=== PATIENT | female | born 1960 | race Caucasian/White ===

== ENCOUNTER 2021-03-10 13:08 | Outpatient (CLI) | payer OTHER, SELFPAY ==
[2021-03-10 13:34] LABS: Hematocrit 36.2 % (35.0-49.0); Mean Corpuscular HGB Conc 33.1 g/dL (32.0-36.0); Mean Corpuscular Hemoglobin 27.3 pg (27.0-31.0); Mean Corpuscular Volume 82.5 fL (78.0-102.0); Mean Platelet Volume 9.6 fl (9.2-11.8); Platelet Count Result 437 K/mm3 (150-420); Red Blood Count 4.39 M/mm3 (4.20-5.40); Red Cell Distribution Width 12.6 % (11.6-14.4); White Blood Count 14.5 K/mm3 (4.8-10.8)
[2021-03-10 13:57] LABS: INR 4.8; Prothrombin Time 47.6 Seconds (9.50-12.10)
[2021-03-10 14:06] LABS: Alanine Aminotransferase 22 U/L (14-59); Albumin Level 4.1 g/dL (3.4-5.0); Alkaline Phosphatase 156 U/L (46-116); Anion Gap 18 mmol/L (8-16); Aspartate Amino Transferase 27 U/L (15-37); Bilirubin,Total 0.4 mg/dL (0.00-1.00); Blood Urea Nitrogen 38 mg/dL (7-18); Calcium 9.9 mg/dL (8.5-10.1); Carbon Dioxide 20 mmol/L (21-32); Chloride 94 mmol/L (98-108); Estimated Glomerular Filt Rate 30; Glucose 373 mg/dL (70-99); Osmolality Calculated 298 mOsm/kg (285-295); Sodium 132 mmol/L (136-145); Total Protein 7.8 g/dL (6.4-8.2)
== END 2021-03-10 13:09 | disposition home or self-care (01) ==
LOC: CHSLAB 13:16
DX: I35.0 Nonrheumatic aortic (valve) stenosis (principal)
CPT/HCPCS: 36415; 80053; 85027; 85610

== ENCOUNTER 2021-04-30 12:11 | Outpatient (CLI) | payer OTHER, SELFPAY ==
[2021-04-30 12:40] LABS: INR 1.8; Prothrombin Time 19.1 Seconds (9.50-12.10)
[2021-04-30 12:43] LABS: Creatinine Urine 33.61 mg/dL (40-278); MALB Creatinine Ratio 38.6 mg/g (0-30); Microalbumin Urine Random < 13.0 mg/L
[2021-04-30 13:26] LABS: Alanine Aminotransferase 42 U/L (14-59); Alkaline Phosphatase 79 U/L (46-116); Anion Gap 11 mmol/L (8-16); Aspartate Amino Transferase 19 U/L (15-37); Bilirubin,Total 0.6 mg/dL (0.00-1.00); Blood Urea Nitrogen 14 mg/dL (7-18); Calcium 9.2 mg/dL (8.5-10.1); Carbon Dioxide 27 mmol/L (21-32); Chloride 103 mmol/L (98-108); Cholesterol 132 mg/dL (0-200); Estimated Glomerular Filt Rate 49; Free T4 Free Thyroxine 1.28 ng/dL (0.76-1.46); Glucose 190 mg/dL (70-99); HDL Direct 38 mg/dL (40-60); LDL Cholesterol Calculated 51 mg/dL (<130); LDL Cholesterol Direct 59 mg/dL (0-130); Osmolality Calculated 297 mOsm/kg (285-295); Potassium 3.9 mmol/L (3.5-5.1); Sodium 141 mmol/L (136-145); Thyroid Stimulating Hormone 1.16 uIU/mL (0.36-3.74); Total Protein 6.6 g/dL (6.4-8.2); Triglycerides 214 mg/dL (0-150)
== END 2021-04-30 12:12 | disposition home or self-care (01) ==
LOC: CHSLAB 12:16
PROVIDERS: Visit Provider Internal Medicine
DX: E11.65 Type 2 diabetes mellitus with hyperglycemia (principal); I35.0 Nonrheumatic aortic (valve) stenosis
CPT/HCPCS: 36415; 80053; 80061; 82043; 83721; 84439; 84443; 85610

== ENCOUNTER 2021-05-29 11:37 | Outpatient (RCR) | payer OTHER, SELFPAY ==
[2021-03-14 15:08] LABS: INR > 8.0; Prothrombin Time > 90.0 Seconds (9.64-11.0)
[2021-03-18 10:47] LABS: INR 2.1; Prothrombin Time 21.5 Seconds (9.50-12.10)
[2021-03-28 12:18] LABS: INR 1.7; Prothrombin Time 17.8 Seconds (9.50-12.10)
[2021-04-02 13:26] LABS: INR 2.3; Prothrombin Time 23.2 Seconds (9.50-12.10)
[2021-04-09 12:34] LABS: INR 2.1; Prothrombin Time 21.9 Seconds (9.50-12.10)
[2021-04-17 13:59] LABS: INR 2.3; Prothrombin Time 23.6 Seconds (9.50-12.10)
[2021-05-29 12:10] LABS: INR 2.2; Prothrombin Time 22.7 Seconds (9.50-12.10)
== END 2021-06-12 23:59 | disposition home or self-care (01) ==
LOC: CHSLAB 11:37
DX: I35.0 Nonrheumatic aortic (valve) stenosis (principal)
CPT/HCPCS: 36415; 85610

== ENCOUNTER 2021-09-08 07:42 | Outpatient (RCR) | payer OTHER, SELFPAY ==
[2021-06-19 13:08] LABS: INR 2.3; Prothrombin Time 23.5 Seconds (9.50-12.10)
[2021-07-24 07:48] LABS: INR 4.8
[2021-08-15 08:24] LABS: Prothrombin Time 20.4 Seconds (9.50-12.10)
[2021-09-08 08:30] LABS: INR 2.2; Prothrombin Time 22.5 Seconds (9.50-12.10)
== END 2021-09-17 23:59 | disposition home or self-care (01) ==
LOC: CHSLAB 07:42
PROVIDERS: Visit Provider Thoracic Surgery (Cardiothoracic Vascular Surgery)
DX: I35.0 Nonrheumatic aortic (valve) stenosis (principal)
CPT/HCPCS: 36415; 85610

== ENCOUNTER 2021-12-13 07:33 | Outpatient (RCR) | payer OTHER, SELFPAY ==
[2021-10-08 07:57] LABS: INR 1.8; Prothrombin Time 18.3 Seconds (9.50-12.10)
[2021-11-06 08:12] LABS: Prothrombin Time 20.3 Seconds (9.50-12.10)
[2021-12-13 08:06] LABS: INR 1.7; Prothrombin Time 17.2 Seconds (9.50-12.10)
== END 2022-01-06 23:59 | disposition home or self-care (01) ==
LOC: CHSLAB 07:33
DX: I35.0 Nonrheumatic aortic (valve) stenosis (principal)
CPT/HCPCS: 36415; 80307; 85610

== ENCOUNTER 2022-03-11 07:31 | Outpatient (RCR) | payer OTHER, SELFPAY ==
[2022-01-20 08:31] LABS: INR 5.4
[2022-02-04 08:13] LABS: INR 2.7; Prothrombin Time 26.9 Seconds (9.50-12.10)
[2022-03-11 08:00] LABS: INR 2.2; Prothrombin Time 22.5 Seconds (9.50-12.10)
== END 2022-04-20 23:59 | disposition home or self-care (01) ==
LOC: CHSLAB 07:31
PROVIDERS: Internal Medicine Cardiovascular Disease
DX: I35.0 Nonrheumatic aortic (valve) stenosis (principal)
CPT/HCPCS: 36415; 85610

== ENCOUNTER 2022-03-25 07:53 | Outpatient (RCR) | payer OTHER, SELFPAY ==
--- NOTE | 2022-03-25 08:42 | PTOPEVAL1 ---
Assessment and note entered by Dominik Liang Evaluation Information Assessment Status Evaluation Diagnosis chronic right shoulder pain Onset 12/23/21 Subjective Information Pt. reports that she recalls no specific incident that brought on shoulder pain. She describes her pain in the area of the lateral brachial region of the right arm. She reports pain is most notable with reaching overhead and behind her back. She reports that she has been more cautious with her rigth arm over the past couple weeks. She reports that she is able to complete all ADL's and work activities, but it does increase pain and causes her to stop working. She reports that her goal is to decrease her right shoulder pain and increase her movement. Reported Pain Level Pain Score 4: Self Report Assessment PT Clinical Summary Pt. is a 61 year old female who enters the clinic with right shoulder pain. She presents with indications of right shoulder impingement syndrome . Continued treatment is indicated in order to improve ROM, strength and postural awareness to allow for improved comfort with IADL performance. Plan of Care Interventions Hot Pack/Cold Pack,Manual Therapy,Therapeutic Activities,Therapeutic Exercise PT Services Indicated Yes Treatment Frequency and 3x/week x 12 visits Duration These treatments will address the objective and functional deficits as defined above. The patient will be advanced safely and appropriately in order for the patient to progress towards his/her prior level of function. Additional exercises will be introduced and as well as a comprehensive home exercise program upon discharge, if needed, ?to ensure carryover of functional gains achieved in the clinic. This treatment plan has been reviewed and agreement upon by the patient.
--- NOTE | 2022-04-30 08:37 | PTOPDC ---
Assessment and note entered by Britany Bearden, PT Evaluation Information Assessment Status Discharge Diagnosis chronic right shoulder pain Onset 12/23/21 Subjective Information Amy reports that her right shoulder pain has improved a lot since initiating PT. She notes 0/10 pain currently and has not had pain in the last week. She is able to perform all daily activities without limitations and she is able to sleep on her left side without difficulty. She feels she has improved 90% overall. Reported Pain Level Pain Score 0: Self Report Assessment PT Clinical Summary Amy Aponte has completed 12 skilled physical therapy visits for chronic right shoulder pain. She is reporting a 90% overall improvement in her right shoulder since initiating PT. She is able to perform all daily activities and can sleep on her right side again. She objectively demonstrates improved right shoulder ROM, improved right shoulder strength, improved postural awareness, and less tenderness. She will be discharged to an independent home exercise program. Plan of Care Interventions Self-Care/Home Management
== END 2022-04-30 09:44 | disposition home or self-care (01) ==
LOC: CHSPT 07:53
DX: M25.511 Pain in right shoulder (principal); G89.29 Other chronic pain
CPT/HCPCS: 97110; 97140; 97161; 97530

== ENCOUNTER 2022-06-27 07:33 | Outpatient (CLI) | payer OTHER, SELFPAY ==
[2022-06-27 08:05] LABS: Hemoglobin A1C 9.4 % (<5.7)
[2022-06-27 08:19] LABS: Prothrombin Time 59.1 Seconds (9.50-12.10)
[2022-06-27 08:51] LABS: Free T4 Free Thyroxine 1.28 ng/dL (0.76-1.46); Thyroid Stimulating Hormone 0.64 uIU/mL (0.36-3.74)
[2022-06-27 12:25] LABS: INR 6.3
== END 2022-06-27 07:34 | disposition home or self-care (01) ==
PROVIDERS: PCP Internal Medicine Cardiovascular Disease; Visit Provider Internal Medicine
DX: E11.65 Type 2 diabetes mellitus with hyperglycemia (principal); Z95.2 Presence of prosthetic heart valve; E05.00 Thyrotoxicosis with diffuse goiter without thyrotoxic crisis or storm
CPT/HCPCS: 36415; 83036; 84439; 84443; 85610

== ENCOUNTER 2022-08-08 07:41 | Outpatient (RCR) | payer OTHER, SELFPAY ==
[2022-05-21 08:09] LABS: INR 2.4; Prothrombin Time 24.2 Seconds (9.50-12.10)
[2022-07-07 08:39] LABS: INR 1.2; Prothrombin Time 13.3 Seconds (9.50-12.10)
[2022-07-16 08:06] LABS: INR 1.3; Prothrombin Time 13.7 Seconds (9.50-12.10)
[2022-07-31 08:17] LABS: Prothrombin Time 51.7 Seconds (9.50-12.10)
[2022-07-31 09:18] LABS: INR 5.4
[2022-08-08 08:22] LABS: INR 1.1; Prothrombin Time 12.4 Seconds (9.50-12.10)
== END 2022-08-19 23:59 | disposition home or self-care (01) ==
LOC: CHSLAB 07:41
PROVIDERS: Visit Provider Internal Medicine Cardiovascular Disease
DX: Z95.2 Presence of prosthetic heart valve (principal)
CPT/HCPCS: 36415; 85610

== ENCOUNTER 2022-11-05 07:32 | Outpatient (RCR) | payer OTHER, SELFPAY ==
[2022-08-20 08:30] LABS: INR 1.7; Prothrombin Time 17.6 Seconds (9.50-12.10)
[2022-09-09 08:03] LABS: INR 2.1; Prothrombin Time 21.8 Seconds (9.50-12.10)
[2022-10-05 08:20] LABS: INR 1.6; Prothrombin Time 16.7 Seconds (9.50-12.10)
[2022-11-05 08:08] LABS: INR 1.6; Prothrombin Time 17.2 Seconds (9.50-12.10)
== END 2022-11-18 23:59 | disposition home or self-care (01) ==
LOC: CHSLAB 07:32
PROVIDERS: Visit Provider Internal Medicine Cardiovascular Disease
DX: Z95.2 Presence of prosthetic heart valve (principal)
CPT/HCPCS: 36415; 85610

== ENCOUNTER 2022-11-26 07:29 | Outpatient (CLI) | payer OTHER, SELFPAY ==
[2022-11-26 08:01] LABS: INR 1.4; Prothrombin Time 14.6 Seconds (9.50-12.10)
[2022-11-26 08:23] LABS: Alanine Aminotransferase 44 U/L (14-59); Albumin Level 3.9 g/dL (3.4-5.0); Alkaline Phosphatase 65 U/L (46-116); Anion Gap 10 mmol/L (8-16); Aspartate Amino Transferase 26 U/L (15-37); Bilirubin,Total 0.4 mg/dL (0.00-1.00); Blood Urea Nitrogen 27 mg/dL (7-18); Calcium 9.6 mg/dL (8.5-10.1); Carbon Dioxide 24 mmol/L (21-32); Chloride 103 mmol/L (98-108); Estimated Glomerular Filt Rate 39; Glucose 189 mg/dL (70-99); Osmolality Calculated 294 mOsm/kg (285-295); Potassium 4.5 mmol/L (3.5-5.1); Sodium 137 mmol/L (136-145); Total Protein 6.7 g/dL (6.4-8.2)
== END 2022-11-26 07:30 | disposition home or self-care (01) ==
LOC: CHSLAB 07:35
PROVIDERS: Visit Provider Internal Medicine
DX: E11.65 Type 2 diabetes mellitus with hyperglycemia (principal); I10 Essential (primary) hypertension; Z95.2 Presence of prosthetic heart valve
CPT/HCPCS: 36415; 80053; 85610

== ENCOUNTER 2023-02-02 07:41 | Outpatient (CLI) | payer OTHER, SELFPAY ==
[2023-02-02 08:27] LABS: INR 2.3
[2023-02-02 08:46] LABS: Hemoglobin A1C 7.9 % (<5.7)
[2023-02-02 09:16] LABS: Anion Gap 11 mmol/L (8-16); Blood Urea Nitrogen 18 mg/dL (7-18); Calcium 9.6 mg/dL (8.5-10.1); Carbon Dioxide 26 mmol/L (21-32); Chloride 103 mmol/L (98-108); Estimated Glomerular Filt Rate 45; Glucose 167 mg/dL (70-99); Osmolality Calculated 295 mOsm/kg (285-295); Potassium 4.2 mmol/L (3.5-5.1); Sodium 140 mmol/L (136-145)
[2023-02-02 09:17] LABS: Thyroid Stimulating Hormone Reflex 0.56 u/IU/mL (0.36-3.74)
== END 2023-02-02 07:42 | disposition home or self-care (01) ==
LOC: CHSLAB 07:45
PROVIDERS: Visit Provider Internal Medicine
DX: E11.65 Type 2 diabetes mellitus with hyperglycemia (principal); E05.00 Thyrotoxicosis with diffuse goiter without thyrotoxic crisis or storm; I10 Essential (primary) hypertension; E78.5 Hyperlipidemia, unspecified; Z95.2 Presence of prosthetic heart valve
CPT/HCPCS: 36415; 80048; 83036; 84443; 85610

== ENCOUNTER 2023-03-16 07:40 | Outpatient (RCR) | payer OTHER, SELFPAY ==
[2022-12-16 07:56] LABS: INR 2.7; Prothrombin Time 27.8 Seconds (9.50-12.10)
[2022-12-30 08:05] LABS: INR 3.3
[2023-03-08 08:08] LABS: INR 1.4; Prothrombin Time 15.4 Seconds (9.50-12.10)
[2023-03-16 08:03] LABS: INR 1.6; Prothrombin Time 17.2 Seconds (9.50-12.10)
== END 2023-03-16 23:59 | disposition home or self-care (01) ==
LOC: CHSLAB 07:40
PROVIDERS: PCP Internal Medicine Cardiovascular Disease; Visit Provider Internal Medicine Cardiovascular Disease
DX: Z95.2 Presence of prosthetic heart valve (principal)
CPT/HCPCS: 36415; 85610

== ENCOUNTER 2023-03-22 07:37 | Outpatient (RCR) | payer OTHER, SELFPAY ==
[2023-03-22 08:02] LABS: INR 1.7; Prothrombin Time 17.6 Seconds (9.50-12.10)
== END 2023-06-20 23:59 | disposition home or self-care (01) ==
LOC: CHSLAB 07:37
PROVIDERS: Visit Provider Internal Medicine Cardiovascular Disease
DX: Z95.2 Presence of prosthetic heart valve (principal)
CPT/HCPCS: 36415; 85610

== ENCOUNTER 2023-07-06 07:34 | Outpatient (RCR) | payer OTHER, SELFPAY ==
[2023-04-17 08:41] LABS: INR 1.8; Prothrombin Time 18.8 Seconds (9.50-12.10)
[2023-05-19 08:15] LABS: INR 1.9
[2023-07-06 08:29] LABS: INR 1.6; Prothrombin Time 17.2 Seconds (9.50-12.10)
== END 2023-07-16 23:59 | disposition home or self-care (01) ==
LOC: CHSLAB 07:34
PROVIDERS: Visit Provider Internal Medicine Cardiovascular Disease
DX: Z95.2 Presence of prosthetic heart valve (principal)
CPT/HCPCS: 36415; 85610

== ENCOUNTER 2023-08-18 07:23 | Outpatient (CLI) | payer OTHER, SELFPAY ==
[2023-08-18 07:50] LABS: Creatinine Urine 13.96 mg/dL (40-278); Total Protein Urine Random < 6.0 mg/dL (0.0-11.9); Ur Ttl Prot Creatinine Ratio 0.43 mg/mg (0-0.20)
[2023-08-18 08:16] LABS: Albumin Level 3.6 g/dL (3.4-5.0); Anion Gap 13 mmol/L (8-16); Blood Urea Nitrogen 17 mg/dL (7-18); Calcium 9.2 mg/dL (8.5-10.1); Carbon Dioxide 23 mmol/L (21-32); Chloride 101 mmol/L (98-108); Estimated Glomerular Filt Rate 45; Glucose 236 mg/dL (70-99); Magnesium 1.8 mg/dL (1.8-2.4); Osmolality Calculated 293 mOsm/kg (285-295); Phosphorus 4.6 mg/dL (2.6-4.7); Potassium 3.8 mmol/L (3.5-5.1); Sodium 137 mmol/L (136-145)
== END 2023-08-18 07:24 | disposition home or self-care (01) ==
LOC: CHSLAB 07:28
DX: N18.31 Chronic kidney disease, stage 3a (principal)
CPT/HCPCS: 36415; 80069; 82570; 83735; 84156

== ENCOUNTER 2023-10-14 07:33 | Outpatient (RCR) | payer OTHER, SELFPAY ==
[2023-08-09 08:11] LABS: INR 2.1; Prothrombin Time 21.7 Seconds (9.50-12.10)
[2023-10-14 08:09] LABS: INR 1.4; Prothrombin Time 14.5 Seconds (9.50-12.1)
== END 2023-11-07 23:59 | disposition home or self-care (01) ==
LOC: CHSLAB 07:33
PROVIDERS: Visit Provider Internal Medicine Cardiovascular Disease
DX: Z95.2 Presence of prosthetic heart valve (principal)
CPT/HCPCS: 36415; 85610

== ENCOUNTER 2024-02-21 07:33 | Outpatient (RCR) | payer OTHER, SELFPAY ==
[2023-11-24 07:52] LABS: INR 2.6; Prothrombin Time 26.3 Seconds (9.50-12.1)
[2023-12-13 08:06] LABS: INR 2.1; Prothrombin Time 21.6 Seconds (9.50-12.1)
[2024-01-04 07:56] LABS: INR 1.7; Prothrombin Time 17.7 Seconds (9.50-12.1)
[2024-02-11 08:22] LABS: INR 2.2; Prothrombin Time 22.8 Seconds (9.50-12.1)
[2024-02-21 07:58] LABS: INR 1.7; Prothrombin Time 17.5 Seconds (9.50-12.1)
== END 2024-02-22 23:59 | disposition home or self-care (01) ==
LOC: CHSLAB 07:33
PROVIDERS: Visit Provider Internal Medicine Cardiovascular Disease
DX: Z95.2 Presence of prosthetic heart valve (principal)
CPT/HCPCS: 36415; 85610

== ENCOUNTER 2024-03-10 07:32 | Outpatient (CLI) | payer OTHER, SELFPAY ==
[2024-03-10 08:19] LABS: INR 1.3; Prothrombin Time 14.4 Seconds (9.50-12.1)
[2024-03-10 08:56] LABS: Free T3 2.62 pg/mL (2.18-3.98); Free T4 Free Thyroxine 1.08 ng/dL (0.76-1.46); Thyroid Stimulating Hormone 0.76 uIU/mL (0.36-3.74)
== END 2024-03-10 07:33 | disposition home or self-care (01) ==
LOC: CHSLAB 07:37
PROVIDERS: Visit Provider Nurse Practitioner Family
DX: Z95.2 Presence of prosthetic heart valve (principal); Z86.39 Personal history of other endocrine, nutritional and metabolic disease
CPT/HCPCS: 36415; 84439; 84443; 84481; 85610

== ENCOUNTER 2024-06-16 07:37 | Outpatient (RCR) | payer OTHER, SELFPAY ==
[2024-03-28 07:51] LABS: INR 1.7; Prothrombin Time 18.2 Seconds (9.50-12.1)
[2024-04-26 08:01] LABS: INR 1.7; Prothrombin Time 18.4 Seconds (9.50-12.1)
[2024-05-27 08:15] LABS: INR 1.9; Prothrombin Time 19.4 Seconds (9.50-12.1)
[2024-06-16 08:10] LABS: INR 2.6; Prothrombin Time 26.6 Seconds (9.50-12.1)
== END 2024-06-26 23:59 | disposition home or self-care (01) ==
LOC: CHSLAB 07:37
PROVIDERS: Visit Provider Internal Medicine Cardiovascular Disease
DX: Z95.2 Presence of prosthetic heart valve (principal)
CPT/HCPCS: 36415; 85610

== ENCOUNTER 2024-06-22 07:33 | Emergency (ER) | payer OTHER, SELFPAY ==
--- NOTE | ~2024-06-22 | XR_ITS ---
Portable chest x-ray Comparison: None Clinical History: Cough Findings: Lungs are clear, without focal consolidation or pleural effusion. 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 Bones and soft tissues are un remarkable. Impression: Clear lungs. 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 Reviewed, dictated and finalized at location . [employer] Impression: Clear lungs. 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
[2024-06-22 07:34] VITALS: BP 137/71; PULSE 80; RESP 14; TEMP 36.4; O2SAT 99
[2024-06-22 07:38] VITALS: O2SAT 99
--- NOTE | 2024-06-22 07:45 | PC.NURSE ---
COVID PCR test administered & sent to lab
[2024-06-22 07:55] VITALS: PULSE 80; RESP 16; O2SAT 98
[2024-06-22] MEDS: LEVALBUTEROL NEB 1.25 MG/3 ML 2.5 MG INHALATION (07:58)
[2024-06-22 08:03] VITALS: PULSE 90; RESP 16; O2SAT 98
[2024-06-22 08:24] LABS: SARS-CoV-2 RNA PCR Negative (Negative)
[2024-06-22 08:32] LABS: Influenza A QL RT-PCR Negative (Negative); Influenza B QL RT-PCR Negative (Negative); RSV RNA, RT-PCR Negative (Negative)
--- NOTE | 2024-06-22 08:35 | ED.URI ---
HPI - URI/Sore Throat General Chief Complaint: Upper Respiratory Infection Stated Complaint: cough; wheezing Time Seen by Provider: 06/22/24 07:41 History of Present Illness HPI Narrative: is a 63-year-old female presents with cough congestion times 3 days as have a history of asthma currently no fever chills no shortness of breath does have some audible wheezing. Related Data Home Medications ?Medication ?Instructions ?Recorded ?Confirmed ?Last Taken ?Type empagliflozin 25 mg tablet mg 06/22/24 Unknown History (Jardiance) insulin glargine U-300 conc 300 unit subcut 06/22/24 Unknown History unit/mL (1.5 mL) subcutaneous pen (Toujeo SoloStar U-300 Insulin) insulin lispro 100 unit/mL subcut 06/22/24 Unknown History subcutaneous pen lisinopril 5 mg tablet mg 06/22/24 Unknown History metformin 500 mg tablet,extended mg PO 06/22/24 Unknown History release 24 hr metoprolol tartrate 25 mg tablet mg 06/22/24 Unknown History montelukast 10 mg tablet mg 06/22/24 Unknown History rosuvastatin 40 mg tablet mg 06/22/24 Unknown History sitagliptin phosphate 100 mg mg 06/22/24 Unknown History tablet (Januvia) warfarin 1 mg tablet mg 06/22/24 Unknown History Allergies Allergy/AdvReac Type Severity Reaction Status Date / Time No Known Allergies Allergy Verified 06/22/24 07:42 Review of Systems Review of Systems: All systems reviewed & are unremarkable except as noted in HPI and below Exam Const: General: healthy appearing and no acute distress Nutritional Appearance: well nourished Orientation/consciousness: patient oriented x3 HENMT: Head: normal to inspection Mouth: Yes Normal oral and palatal mucosa present Eyes: Conjunctivae: conjunctivae normal Pupils: Equal, round and reactive pupils present EOM: EOMs intact bilaterally Neck: Neck: normal visual inspection, no lymphadenopathy and no meningeal signs Chest: Chest palpation & inspection: normal inspection of the chest and abnormal inspection of the chest Resp: Effort & Inspection: normal respiratory effort Auscultation: wheezes Cardio: Rate: regular rate Rhythm: regular rhythm GI: GI Palp: Yes Soft to palpation Auscultation: normal bowel sounds Skin: General skin exam: normal color Rashes: no rashes Course Course Emergency Course: Patient received a breathing treatment and after her Xopenex breathing treatment patient's symptoms have improved COVID RSV influenza negative chest x-ray shows no acute cardiopulmoary abnorm Vital Signs Vital signs: Vital Signs Temperature 36.4 C L 06/22/24 07:34 Pulse Rate 80 06/22/24 07:34 Respiratory Rate 14 06/22/24 07:34 Blood Pressure 137/71 06/22/24 07:34 Pulse Oximetry 99 06/22/24 07:34 Oxygen Delivery Room Air 06/22/24 07:34 Temperature 36.4 C L 06/22/24 07:34 Pulse Rate 90 06/22/24 08:03 Respiratory Rate 16 06/22/24 08:03 Blood Pressure 137/71 06/22/24 07:34 Pulse Oximetry 98 06/22/24 08:03 Oxygen Delivery Room Air 06/22/24 07:38 MDM - URI/Sore Throat Lab Data Labs: Lab Results 06/22/24 Range/Units 07:42 Influenza A (RT-PCR) Negative (Negative) Influenza B (RT-PCR) Negative (Negative) RSV (RT-PCR) Negative (Negative) SARS-CoV-2 RNA (RT-PCR) Negative (Negative) Discharge Plan Discharge Clinical Impression: Upper respiratory infection Qualifiers: URI type: unspecified URI Qualified Code(s): J06.9 - Acute upper respiratory infection, unspecified Patient Disposition: Home, Self-Care Condition: Stable Instructions: Antibiotic Form, Upper Respiratory Infection (ED) Additional Instructions: advised to take medication as prescribed and follow-up with primary in 1 week for further evaluation treatment. Patient Language: Bermudian Prescriptions: New azithromycin [Zithromax Z-Nino] 250 mg tablet See Rx Instructions .ROUTE .COMPLEX Qty: 6 0RF Rx Instructions: For 250 mg dose pack: take 500 mg today (day 1), then 250 mg for 4 days (days 2-5) methylprednisolone [Medrol (Nino)] 4 mg tablets,dose pack See Rx Instructions .ROUTE .COMPLEX Qty: 21 0RF Rx Instructions: for 6 days No Action montelukast 10 mg tablet lisinopril 5 mg tablet warfarin 1 mg tablet metformin 500 mg tablet extended release 24 hr PO insulin lispro 100 unit/mL insulin pen SUBCUT rosuvastatin 40 mg tablet metoprolol tartrate 25 mg tablet Januvia 100 mg tablet Jardiance 25 mg tablet insulin glargine U-300 conc [Toujeo SoloStar U-300 Insulin] 300 unit/mL (1.5 mL) insulin pen SUBCUT Follow-up/Referrals: Rafael,Hector Anderson MD [Primary Care Provider] - Time of Disposition: 08:41
[2024-06-22 08:48] VITALS: BP 130/80; PULSE 79; RESP 17; TEMP 36.6; O2SAT 99
== END 2024-06-22 08:48 | disposition home or self-care (01) ==
PROVIDERS: Emergency Provider Emergency Medicine; PCP Family Medicine
DX: J06.9 Acute upper respiratory infection, unspecified (principal); Z79.4 Long term (current) use of insulin; Z79.899 Other long term (current) drug therapy; Z79.01 Long term (current) use of anticoagulants; Z20.822 Contact with and (suspected) exposure to COVID-19
CPT/HCPCS: 71045; 87637; 94640; 99283

== ENCOUNTER 2024-09-07 07:51 | Outpatient (RCR) | payer OTHER, SELFPAY ==
[2024-07-20 08:27] LABS: Prothrombin Time 38.4 Seconds (9.50-12.1)
[2024-08-03 08:33] LABS: INR 1.5; Prothrombin Time 15.6 Seconds (9.50-12.1)
[2024-09-07 08:39] LABS: INR 1.3; Prothrombin Time 13.7 Seconds (9.50-12.1)
== END 2024-10-18 23:59 | disposition home or self-care (01) ==
LOC: CHSLAB 07:51
PROVIDERS: PCP Family Medicine; Visit Provider Internal Medicine Cardiovascular Disease
DX: Z95.2 Presence of prosthetic heart valve (principal)
CPT/HCPCS: 36415; 85610

== ENCOUNTER 2024-09-08 07:31 | Outpatient (CLI) | payer OTHER, SELFPAY | END 2024-09-08 07:32 | disposition home or self-care (01) | LOC: CHSIMG 07:33 | PROVIDERS: PCP Family Medicine; Visit Provider Family Medicine | DX: Z78.0 Asymptomatic menopausal state (principal); M85.89 Other specified disorders of bone density and structure, multiple sites | CPT/HCPCS: 77080 ==

== ENCOUNTER 2024-11-16 07:46 | Emergency (ER) | payer OTHER, SELFPAY ==
[2024-11-16 07:46] VITALS: BP 149/78; PULSE 80; RESP 18; TEMP 36.5; O2SAT 99
--- OUTSIDE RECORDS SUMMARY | 2024-11-16 07:50 | XMS_ITS | Clinical Summary ---
Author Organization [facility] Address [address] [place] [address] Care Team Providers Care Commercial Marketing Specialist Name Role Phone Lourdes Patterson MD Primary Care Provider Source Comments [facility],non-owned Affiliates and Associated Physician Practices is amultiple site organization consisting of ambulatory clinics and hospital sitesin [place], [place], [place] and [place]. This disclosure is being madepursuant to the Care Everywhere program and may not contain all information available regarding this patient. Last updated 18.[facility] Allergies Active Allergy Reactions Criticality Noted Date Comments Aminophylline Nausea and/or Vomiting Low 08/23/2014 Dizziness, diarrhea Levaquin Nausea and/or Vomiting Low 08/18/2012 Levofloxacin Nausea and/or Vomiting Low 08/18/2012 Other reaction(s): Nausea And Vomiting No Known Food Allergy Other Low 08/30/2012 None known., None known. other [Other] Rash Medium 10/04/2015 Received name: Adhesive Tape Sulfa Drugs Skin Reactions 10/22/2009 Other reaction(s): Hives, Theophyllines Nausea and/or Vomiting Low 08/23/2014 Dizziness, diarrhea, Dizziness, diarrhea Diazepam Other 04/18/2019 Urinary Retention Medications * Be aware that medications may not be up to date on this document. Alwaysverify current medications with the patient. vitamin E (TOCOPHERYL) 400 UNIT capsule Take 2 (two) capsules by mouth once daily Active polyethyl glycol-propyl glycol (SYSTANE) 0.4-0.3 % ophth solution 1 (one) drop by Ophthalmic route As needed Active lisinopril (PRINIVIL; ZESTRIL) 20 MG tablet Take 1 (one) tablet by mouth 2 times daily Active metoclopramide (REGLAN) 5 MG tablet Take 1 (one) tablet by mouth as needed for Nausea/Vomiting Active methocarbamol (ROBAXIN) 500 MG tablet 1 (one) tablet as needed 02/03/20 17 Active metroNIDAZOLE (METROGEL) 0.75 % gel APPLY TWICE DAILY TO ROSACEA PRN 5 04/08/20 18 Active Blood Glucose Monitoring Suppl (BLOOD GLUCOSE MONITOR SYSTEM) W/DEVICE KIT 04/08/20 18 Active Multiple Vitamin (MULTI-VITAMIN DAILY PO) Take 1 tablet by mouth once daily Active amLODIPine (NORVASC) 5 MG tabletIndication s:Essential hypertension TAKE ONE TABLET BY MOUTH ONCE DAILY 08/07/19 20 Active amitriptyline (ELAVIL) 25 MG tablet Take 0.5 (one-half) tablet by mouth once daily 05/02/20 20 Active cetirizine (ZYRTEC) 10 MG tablet Take 1 (one) tablet by mouth once daily Active pen needles 11/24 31G X 8 MM 31G X 8 MMIndications:Ty pe 2 diabetes mellitus with other specified complication, with long-term current use of insulin (HCC),Type 2 diabetes mellitus without complication, with long-term current use of insulin (HCC) Use as directed 300 Each 4 09/11/19 21 Active TOUJEO SOLOSTAR pen Inject 40 (forty) Units subcutaneously at bedtime 12 mL 3 09/11/19 21 Active rosuvastatin (CRESTOR) 20 MG tablet TAKE 1 TABLET BY MOUTH EVERY DAY 30 tablet 5 10/04/19 21 Active TOUJEO MAX SOLOSTAR pen INJECT 40 UNITS SUBCUTANEOUSLY AT BEDTIME 6 syringe 23 02/08/20 21 Active Additional Information Patient not taking.Reported on 06/17/2023 Insulin Glargine, 1 Unit Dial, (TOUJEO) pen Inject 50 Units subcutaneously at bedtime Active warfarin (COUMADIN) 3 MG tablet Take 1 (one) tablet by mouth once daily M/W/F 5mg S/T// 3mg Active montelukast (SINGULAIR) 10 MG tablet Take 10 mg by mouth at bedtime Active docusate sodium (COLACE) 100 MG capsule Take 1 (one) capsule by mouth once daily Active aspirin EC (ECOTRIN) 81 MG tablet Take 1 (one) tablet by mouth once daily 03/05/20 21 Active fluticasone propionate (FLONASE) 50 MCG/ACT nasal spray every 24 hours 03/04/20 21 Active SITagliptin (JANUVIA) 100 MG tablet every 24 hours Activ e JARDIANCE 25 MG tablet TAKE 1 (ONE) TABLET BY MOUTH ONCE DAILY REASONS: TYPE 2 DIABETES 30 tablet 11 12/17/19 22 Active triamcinolone acetonide (Kenalog) 0.1 % ointment to affected area 03/18/20 23 Active predniSONE (Deltasone) 50 MG tablet TAKE 1 TABLET BY MOUTH EVERY DAY FOR 5 DAYS 06/04/20 23 Active potassium chloride ER (Klor-Con M) 20 MEQ tablet Take 1 tablet every day by oral route. Active Polyethylene Glycol 3350 Take 1 packet every day by oral route. Active oxyCODONE, immediate release, (Roxicodone) 10 MG tablet Take 0.5 tablets every 6 hours by oral route as needed. Active montelukast (Singulair) 10 MG tablet Take 1 (one) tablet by mouth 03/18/20 23 Active metoprolol tartrate IR (Lopressor) 25 MG tablet Take 2 (two) tablets by mouth 2 times daily 06/03/20 23 Active metFORMIN (Glucophage) 500 MG tablet Take 2 tablets twice a day by oral route. Active lisinopril (Prinivil; Zestril) 5 MG tablet Take 1 (one) tablet by mouth once daily 05/13/20 23 Active HumaLOG KwikPen 100 UNIT/ML pen 01/30/20 22 Active Insulin Disposable Pump (Omnipod 5 G6 Pod, Gen 5,) MISC CHANGE EVERY 3 DAYS 05/24/20 23 Active furosemide (Lasix) 40 MG tablet Take 1 tablet twice a day by oral route. Active enoxaparin (Lovenox) 60 MG/0.6ML injection INJECT 1 SYRINGE SUBCUTANEOUSLY EVERY 12 HOURS 03/12/20 23 Active doxycycline hyclate 100 MG tablet Take 1 (one) tablet by mouth 10/23/19 22 Active Continuous Blood Gluc Sensor (FreeStyle Lily 2 Sensor Systm) MISC CHANGE EVERY 14 DAYS 05/31/20 23 Active ciclopirox (Penlac) 8 % solution APPLY TOPICALLY NIGHTLY TO ADJACENT SKIN & AFFECTED NAILS DAILY. REMOVE WITH ALCOHOL EVERY 7 DAYS. 10/05/19 22 Active benzonatate (Tessalon) 100 MG capsule TAKE 1 CAPSULE BY MOUTH THREE TIMES A DAY NEEDED FOR COUGH 09/19/19 23 Active azithromycin (Zithromax) 250 MG tablet TAKE 2 TABLETS BY MOUTH TODAY, THEN TAKE 1 TABLET DAILY FOR 4 DAYS DIRECTED 05/31/20 23 Active amoxicillin (Amoxil) 500 MG capsule TAKE 4 CAPSULES BY MOUTH 1 HOUR PRIOR TO APPOINTMENT 03/22/20 23 Active amLODIPine (Norvasc) 5 MG tablet Take 1 (one) tablet by mouth once daily 04/28/20 23 Active Active Problems Problem Noted Date Diagnosed Date Gastroparesis 09/23/2023 CKD stage 3 secondary to diabetes 03/24/2023 Overview (08/17/2024): Attributed to emboli from prior AVR. Follows with nephrology S/P AVR (aortic valve replacement) 03/11/2021 Overview (03/11/2021): 02/24/21 for bicuspid aortic valve, #19 OnX mechanical valve S/P placement of cardiac pacemaker 03/11/2021 Overview (03/11/2021): [employer] dual chamber pacemaker placed 02/24/21 for heart block after aortic valve replacement Non-seasonal allergic rhinitis due to pollen 03/2021 Overview (01/14/2021): Last Assessment & Plan: - currently on Flonase, Singulair on a daily basis - well controlled on this time Hyperthyroidism 02/14/2019 Graves' disease 11/01/2017 Metabolic dysfunction-associated steatohepatitis (MASH) 07/17/2017 Overview (08/17/2024): Overview: Stage 2 with dense z3 PSF on biopsy December 2009 07/03/15 liver biopsy ([facility] study entry): QUAN stage 2 08/15/15 Fibroscan: LSM 6.1 and 6.4 kPa 12/10/15 US (study): mild steatosis 07/02/16 US (study): mild steatosis but improved, smooth liver contour, no masses 07/23/16 Fibroscan CAP 161, 169; LSM 8.1, 10.4 kPa 01/05/17 liver biopsy ([facility] 303 study 18 mo): mild QUAN, stage 1a 06/10/17 Fibroscan CAP 211, 232; E 6.4, 10.1 kPa 06/14/17 US (study): steatosis, smooth contours, no focal lesions 12/13/17 US (study): steatosis, smooth contours, no focal lesions 05/12/18 Fibroscan CAP 311, 320; E 6.8, 6.1 kPa 05/12/18 US (study): fatty liver, no focal lesions, smooth contours, sludge in GB 11/03/18 US (study): smooth echogenic liver, no focal lesions, no ascites 04/18/19 liver biopsy (study): mild steatosis and lobular inflammation, no fibrosis dwp 04/20/19 US (study): steatosis, no focal lesions dwp 04/20/19 Fibroscan CAP 276, 279; LSM 5.8, 5.4 kPa 03/21/20 US (study): steatosis, smooth contours, no focal lesions 09/05/20 US (study): steatosis, smooth contours, no focal lesions 09/05/20 Fibroscan CAP 328, LSM 6.5 kPa 08/07/21 US (study): steatosis, smooth contours, no focal lesions 08/07/21 Fibroscan CAP 181, LSM 15.7 kPa 01/29/22 US (study): steatosis, smooth contours, no focal lesions 07/15/22 US (study): normal appearing liver, no focal lesions, gallstones 02/04/23 US (study, [place]): mild steatosis, no nodularity, no focal lesions, no sludge or gallstones 08/17/24 Fibroscan CAP 268, LSM 5.7 kPa Asthma 02/06/2016 Kidney cysts 02/06/2016 Overview (11/01/2017): Overview: 02/04/16 ultrasound: 1.8 cm right kidney lesion with debris, no change from prior exam Obesity 08/15/2015 Overview (08/17/2024): Severe nausea and vomiting with dulaglutide. Goiter 04/25/2015 SOFI (obstructive sleep apnea) 10/12/2013 Overview (05/10/2018): Overview: Mild, doesn't need CPAP by sleep study Hyperlipidemia 09/18/2012 Metabolic syndrome 09/18/2012 Abdominal pain 09/18/2012 Overview (05/10/2018): Overview: 03/22/12 EGD: normal duodenal biopsies Hypertension 09/18/2012 GERD (gastroesophageal reflux disease) 3 Overview (05/10/2018): Overview: Doing well with avoiding large meals and stopping antacids and PPIs in 2011. Type 2 diabetes mellitus 08/18/2012 Overview (10/11/2018): Overview: DMII WO CMP NT ST UNCNTR Last Assessment & Plan: Diabetic control has been poor with review of patient's last a1c, I have reviewed and addressed all of the other diabetic benchmarks including the diabetic eye exam, foot exam, renal protection, reaching LDL goal of <100. Will make adjustments to the current regimen. Last A1c has been 9.5 we reviewed her last 5 quarterly A1cs in the all run in the 9 range, she does see an gallery host however I am concerned that she has not been doing well from a diabetic standpoint for quite a long time I will switch her to TOUJEO an increase to 30 units we will recheck in the next 3 months We are also going to switch to a freestylelibre I unit. She was given a sample of the reader with her very poor blood sugar control and extensive insulin use I think she will be a good candidate Hypercalcemia Resolved Problems Problem Noted Date Diagnosed Date Resolved Date Nonrheumatic aortic valve stenosis 06/10/2020 03/11/2021 Bicuspid aortic valve 03/22/20202020 Overview (03/11/2021): AVR 02/24/21 Immunizations Immunization Administration Dates Next Due INFLUENZA VACCINE, TRIV. (AF LURIA, FLUZONE TRIVALENT; 6MO+) (IIV3) 05/09/2013,06/08/2011 HepB Unspecified formulation 07/12/1993 INFLUENZA VACCINE 05/10/2019, 9,01/27/2018,2016,04/11/2010 INFLUENZA VACCINE, CELL CULT URE, QUADR. (FLUCELVAX QUADRIVALENT; 6MO+) (CCIIV4) 03/25/2017 INFLUENZA VACCINE, CELL CULT URE, TRIV. (FLUCELVAX TRIVALENT; 6MO+), 0.5 ML (CCIIV3) 03/26/2017 INFLUENZA VACCINE, QUADR. (F LUZONE; FLULAVAL; FLUARIX; AFLURIA QUADRIVALENT; 6MO+), 0.5 ML (IIV4) 03/15/2020,04/05/2019,03/28/2018,2017,04/01/2015,04/03/2014 INFLUENZA VACCINE, RECOM-GAMEZ, TRIV. (FLUBLOCK TRIVALENT; 18Y+) (RIV3) 04/02/2015,04/03/2014 MMR 12/08/2005,11/06/2005 PNEUMOCOCCAL PPSV23 07/12/2006 Pneumococcal Pcv13 Conj 05/10/2015 TD (AGE 7-ADULT) 07/12/2004 TDAP (7yrs+) 06/06/2019 Td (Adult), 2 Lf Tetanus Tox oid, Adsorbed, Pf 07/12/2004 Family History Medical History Relation Name Comments CAD (Coronary Artery Disease) Father Diabetes Father pre-diabetes High Cholesterol Father Hypertension Father Thyroid Disease Father hyperthyroid ; Status: CVA Maternal Uncle CAD (Coronary Artery Disease) Mother Cancer Mother uterine High Cholesterol Mother Hypertension Mother Other Mother Colon polyps; S tatus: Cancer Other Cousins pancreatic; 2 c ousins Diabetes Other Cousins Other Other Cousins cirrhosis; Stat us: Alive Cancer Sister 1 cervical dyspla cirilo; Status: Alive Hypertension Sister 2 High Cholesterol Sister 3 Relation Name Status Comments Father Maternal Uncle Mother Other Cousins Sister 1 Sister 2 Sister 3 Social History Tobacco Use Types Packs/Day Years Used Date Smoking Tobacco: Never Smokeless Tobacco: Never Tobacco Cessation:Counseling Given: Not Answered Alcohol Use Standard Drinks/Week Comments No 0 (1 standard drink = 0.6 oz pur e alcohol) Comments No Sex and Gender Information Value Date Recorded Sex Assigned at Not on file Legal Sex Female 5:15 PM MINIATURE SET DESIGNER Gender Identity Not on file Sexual Orientation Not on file Last Filed Vital Signs Vital Sign Reading Time Taken Comments Blood Pressure 119/68 08/17/2024 10:57 AM MINIATURE SET DESIGNER Pulse 82 08/17/2024 10:57 AM MINIATURE SET DESIGNER Temperature 36.6 C (97.8 F) 08/17/2024 10:57 AM MINIATURE SET DESIGNER Respiratory Rate 20 08/17/2024 10:5 7 AM MINIATURE SET DESIGNER Oxygen Saturation 98% 06/17/2023 9:20 AM MINIATURE SET DESIGNER Inhaled Oxygen Concentration - - Weight 74.3 kg (163 lb 12.8 oz) 025 10:57 AM MINIATURE SET DESIGNER Height 152.4 cm (5') 08/17/2024 10:57 AM MINIATURE SET DESIGNER Body Mass Index 31.99 08/17/2024 10:57 AM MINIATURE SET DESIGNER Plan of Treatment Health Maintenance Due Date Last Done Comments BONE DENSITY TESTING 1959 COLOGUARD (AGES 45-75) - COLON CA SCREENING [address] COLONOGRAPHY - COLON CA SCREENING 1959 FIT - COLON CA SCREENING 1959 FLEX SIG - COLON CA SCREENING 1959 PAP SMEAR 1959 HIV SCREENING 1974 HEPATITIS C SCREENING 07/15/1977 HEPATITIS B VACCINE (2 of 3 - 19+ 3-dose series) 08/09/1993 07/12/1993 ZOSTER VACCINE (1 of 2) 2009 DIABETES RETINOPATHY SCREENING 10/11/2017 Respiratory Syncytial Virus (RSV) Vaccine Pt: or over 60 yrs (1 - Risk 60-74 years 1-dose series) 2019 PNEUMOCOCCAL VACCINE 50+ (3 of 3 - PCV20 or PCV21) 05/10/2020 05/10/2015, 07/12/2006 DIABETES-FOOT EXAM WITH MONOFILAMENT 09/10/2021 09/10/2020, 10/11/2018, 11/01/2017, Additional history exists DIABETES-SERUM CREATININE 09/10/20212020, 02/10/2019, 10/11/2018, Additional history exists COVID-19 VACCINE ( season) 2024 11/07/2021, 05/08/2021, 08/05/2020, Additional history exists DEPRESSION SCREENING 07/12/2024 DIABETES - URINE PROTEIN SCREENING 07/12/2024 01/10/2021, 09/10/2020, 02/10/2019, Additional history exists DIABETES-HGB A1C 11/01/2024 08/03/2024, 12/2023, 06/07/2023, Additional history exists MAMMOGRAM 03/21/2026 03/21/2024, 03/12, 12/26/2022, Additional history exists DTAP/TDAP/TD VACCINES (4 - Td or Tdap) 06/06/2029 06/06/2019, 07/12/2004, 07/12/2004 COLONOSCOPY - COLON CA SCREENING 03/12/2033 03/12/2023 Colorectal Cancer Screening 03/12/2033 INFLUENZA VACCINE Completed 04/11/2024, , 03/24/2022, Additional history exists HIB VACCINE Aged Out No longer eligi ble based on patient's age to complete this topic HPV VACCINE Aged Out No longer eligi ble based on patient's age to complete this topic MENINGOCOCCAL (Group B) VACCINE SHARED DECISION-MAKING Aged Out No longer eligible based on patient's age to complete this topic MENINGOCOCCAL GROUPS A/C/Y/W VACCINE Aged Out No longer eligible based on patient's age to complete this topic Procedures Procedure Name Priority Date/Time Associated Diagnosis Comments MICROALB/CREAT RATIO URINE RANDOM PANEL Routine 01/10/2021 11:44 AM CDT Type 2 diabetes mellitus without complication, with long-term current use of insulin Metabolic syndrome Hyperthyroidism Goiter Graves' disease QUAN (nonalcoholic steatohepatitis) HEMOGLOBIN A1C Routine 01/10/2021 11:44 AM CDT Type 2 diabetes mellitus without complication, with long-term current use of insulin Metabolic syndrome Hyperthyroidism Goiter Graves' disease QUAN (nonalcoholic steatohepatitis) COMPREHENSIVE METABOLIC PANEL Routine 09/10/2020 1:08 PM MINIATURE SET DESIGNER Type 2 diabetes mellitus with other specified complication, with long-term current use of insulin Mixed hyperlipidemia Hyperthyroidism Goiter Graves' disease QUAN (nonalcoholic steatohepatitis) Thyrotoxicosis with diffuse goiter and without thyroid storm Essential hypertension [place] 3 COMP FOOT EXAM COMPLETED Routine 11/01/2017 Type 2 diabetes mellitus without complication, with long-term current use of insulin Graves' disease Thyrotoxicosis with diffuse goiter and without thyroid storm Mixed hyperlipidemia Goiter Metabolic syndrome from Last 3 Months or Most Recently Relevant to Health Maintenance Results * MICROALB/CREAT RATIO URINE RANDOM PANEL (01/10/2021 11:44 AM CDT) Creatinine Urine 29.0 Not Estab. mg/dL [facility] INSURANCE BILL Microalbumin Urine <3.0 Not Estab. ug/mL [facility] INSURANCE BILL Comment:Verified by repeat analysis Microalbumin/Crea tinine Ratio <10 0 - 29 mg/g creat [facility] INSURANCE BILL Comment: Normal: 0 - 29 Moderately increased: 30 - 300 Severely increased: >300 FASTING Urine URINE SPECIMEN OBTAINED BY CLEAN CATCH PROCEDURE / Unknown 01/10/2021 11:44 AM CDT 01/10/2021 Narrative Resulting Agency Comment Lab Testing performed at: [facility] [id number] Chandler Berman MD LAB - URINE CHEMISTRY ORDER ARMIDA Final Result Performing Organization Address [facility] de Phone Number [facility] INSURANCE BILL [address] [place] [address] * (ABNORMAL) HEMOGLOBIN A1C (01/10/2021 11:44 AM CDT) Hemoglobin A1c 10.1(H) 4.8 - 5.6 % [facility] INSURANCE BILL Comment: . Prediabetes: 5.7 - 6.4 Diabetes: >6.4 Glycemic control for adults with diabetes: <7.0 FASTING Blood BLOOD SPECIMEN / Unknown 01/10/2021 11:44 AM CDT 01/10/2021 Narrative Resulting Agency Comment Lab Testing performed at: [facility] [id number] us Chandler Berman MD LAB - CHEMISTRY ORDERABLES Final Result Performing Organization Address [facility] Co de Phone Number [facility] INSURANCE BILL [address] [place] [address] * (ABNORMAL) COMPREHENSIVE METABOLIC PANEL (09/10/2020 1:08 PM [facility]) BUN 12 7 - 26 mg/dL 09/10/2020 3:02 PM [facility] Creatinine 0.9 0.6 - 1.2 mg/dL 09/10/2020 3:02 PM [facility] Sodium 140 136 - 145 mmol/L 09/10/2020 3:02 PM [facility] Potassium 3.8 3.5 - 4.5 mmol/L 09/10/2020 3:02 PM [facility] Chloride 104 98 - 107 mmol/L 09/10/2020 3:02 PM [facility] CO2 23 22 - 29 mmol/L 09/10/2020 3:02 PM [facility] Glucose 231(H) 70 - 115 mg/dL 09/10/2020 3:02 PM [facility] Calcium 9.8 8.4 - 10.2 mg/dL 09/10/2020 3:02 PM [facility] Protein Total 7.3 6.0 - 8.3 g/dL 09/10/2020 3:02 PM [facility] Albumin 4.5 3.4 - 5.0 g/dL 09/10/2020 3:02 PM [facility] Bilirubin Total 0.8 0.2 - 1.2 mg/dL 09/10/2020 3:02 PM [facility] Alkaline Phosphatase 85 40 - 150 Units/L 09/10/2020 3:02 PM [facility] ALT 19 0 - 55 Units/L 09/10/2020 3:02 PM [facility] AST 15 5 - 34 Units/L 09/10/2020 3:02 PM [facility] Anion Gap 17 8 - 18 09/10/2020 3:02 PM [facility] BUN/Creatinine Ratio 13 7 - 23 09/10/2020 3:02 PM [facility] Osmolality Calculated 297 270 - 300 mOsm/kg 09/10/2020 3:02 PM [facility] Albumin/Globulin Ratio 1.6 1.1 - 2.3 09/10/2020 3:02 PM [facility] eGFR >60 >60 mL/min/1.7 3 m2 09/10/2020 3:02 PM [facility] Blood BLOOD SPECIMEN / Unknown Lab Venipuncture / Unknown 09/10/2020 1:08 PM MINIATURE SET DESIGNER 09/10/2020 2:30 PM MINIATURE SET DESIGNER us Chandler Berman MD LAB - CHEMISTRY ORDERABLES Final Result Performing Organization Address [facility] Co de Phone Number [facility] [address] [place] [address], [facility] [phone] * [place] 3 COMP FOOT EXAM COMPLETED (Automatically Completed) (11/01/2017) us Chandler Berman MD [place] - PROFESSIONAL SERVICES Final Result from Last 3 Months or Most Recently Relevant to Health Maintenance Insurance [facility] Care Teams Commercial Marketing Specialist Relationship Specialty Start Date End Date Lourdes Patterson MD PCP - General Internal Medicine 09/05/20
--- OUTSIDE RECORDS SUMMARY | 2024-11-16 07:50 | XMS_ITS | Clinical Summary ---
Author Organization [facility] Address [address] [place] [address] Phone Care Team Providers Care Transformation Manager Name Role Phone Deshawn Bueno MD Primary Care Provider [phone] Allergies Active Allergy Reactions Criticality Noted Date Comments Adhesive Tape Rash 10/04/2015 Sulfa Antibiotics Hives 10/04/2015 Medications amLODIPine (NORVASC) 5 MG Tablet Take 5 mg by mouth daily. Active glimepiride (AMARYL) 1 MG Tablet Take 1 mg by mouth every morning. Active lisinopril (PRINIVIL, ZESTRIL) 20 MG Tablet Take 20 mg by mouth 2 times daily. Active ranitidine (ZANTAC) 75 MG Tablet Take 75 mg by mouth daily as needed for Heartburn. Active amitriptyline (ELAVIL) 25 MG Tablet Take 12.5 mg by mouth nightly. Active montelukast (SINGULAIR) 10 MG Tablet Take 10 mg by mouth every evening. Active metoprolol tartrate (LOPRESSOR) 100 MG Tablet Take 100 mg by mouth 2 times daily. 100 mg in am 50 mg in pm Active rosuvastatin (CRESTOR) 10 MG Tablet Take 10 mg by mouth daily. Active methimazole (TAPAZOLE) 5 MG Tablet Take 2.5 mg by mouth daily. Active metFORMIN (GLUCOPHAGE) 1000 MG Tablet Take 1,000 mg by mouth 2 times daily (with meals). Active terazosin (HYTRIN) 1 MG Capsule Take 1 mg by mouth nightly. Active Insulin Glargine, 2 Unit Dial, 300 UNIT/ML Solution Pen-injector 40 Units by Subcutaneous route. 0 Active predniSONE (DELTASONE) 10 MG TabletIndicatio ns:Pneumonia due to infectious organism, unspecified laterality, unspecified part of lung Take 1 Tab by mouth daily. Take 4 tab PO daily x 2 days, 3 tab PO daily x 2 days, 2 tab PO daily x 2 day, 1 tab PO daily x 2 days. 20 Tab 0 Active Additional Information Patient not taking.Reported on 10/22/2021 levalbuterol (XOPENEX HFA) 45 MCG/ACT AerosolIndicati ons:Cough take 2 Puffs by inhalation every 6 hours as needed for Cough. 1 Inhaler 0 Active Additional Information Patient not taking.Reported on 10/22/2021 metFORMIN (GLUCOPHAGE-XR) 500 MG TABLET SR 24 HR 2 Active warfarin (COUMADIN) 3 MG Tablet Take 3 mg by mouth. Active levalbuterol (XOPENEX HFA) 45 MCG/ACT AerosolIndicati ons:Cough take 2 Puffs by inhalation every 6 hours as needed for Wheezing. 15 g 2 Active Social History Tobacco Use Types Packs/Day Years Used Date Smoking Tobacco: Never Smokeless Tobacco: Never Alcohol Use Standard Drinks/Week Comments No 0 (1 standard drink = 0.6 oz pur e alcohol) Comments No Sex and Gender Information Value Date Recorded Sex Assigned at Not on file Legal Sex Female 11:26 PM CDT Gender Identity Not on file Sexual Orientation Not on file Last Filed Vital Signs Vital Sign Reading Time Taken Comments Blood Pressure 116/68 10/22/2021 10:43 AM CDT Pulse 99 10/22/2021 10:43 AM CDT Temperature 38 C (100.4 F) 10/22/2021 10:43 AM CDT Respiratory Rate 16 10/22/2021 10:43 AM CDT Oxygen Saturation 94% 10/22/2021 10:43 AM CDT Inhaled Oxygen Concentration - - Weight 79.4 kg (175 lb) 10/04/2015 12:47 PM CDT Height 154.9 cm (5' 1 ) 10/04/2015 12:47 PM CDT Body Mass Index 33.07 10/04/2015 12:47 PM CDT Plan of Treatment Health Maintenance Due Date Last Done Comments Hepatitis C Virus (HCV) Screening 1960 Hepatitis B Immunization (2 of 3 - 19+ 3-dose series) 08/09/1993 07/12/1993 Colonoscopy 2004 Colorectal Cancer Screening 2004 Cologuard 2009 Immunochemical Fecal Occult Blood 2009 Zoster Immunization (1 of 2) 2009 Respiratory Syncytial Virus (RSV) Immunization (Adult) (1 - Risk 60-74 years 1-dose series) 2019 Pneumococcal Immunization (50+ years) (3 of 3 - PCV20 or PCV21) 05/10/2020 05/10/2015, 07/12/2006 Influenza Immunization (#1) 03/12/202403/12, 03/15/2020, 05/10/2019, Additional history exists SARS-COV-2 Immunization ( season) 2024 11/07/2021, 05/08/2021, 08/05/2020, Additional history exists Pneumococcal Immunization Combined Discontinued 05/10/2015, 07/12/2006 DTaP/Tdap/Td Immunization Discontinued 06/06/2019, 07/2004 TdaP Immunization Completed 06/06/2019 Meningococcal Immunization (ACWY) Aged Out No longer eligible based on patient's age to complete this topic Rotavirus Immunization Aged Out No lo nger eligible based on patient's age to complete this topic Insurance [address] [address] Care Teams Transformation Manager Relationship Specialty Start Date End Date Deshawn Bueno MD [address] [place] [address] PCP - General Internal Medicine 10/04/15
--- OUTSIDE RECORDS SUMMARY | 2024-11-16 07:50 | XMS_ITS | Encounter Summary ---
Author Organization [facility] Address [address] [facility] [place] [address] Care Team Providers Care Lead Web Developer Name Role Phone Deshawn Bueno MD Primary Care Provider [phone] Lourdes Patterson MD Primary Care Provider Encounter Details Date Type Department Care Team (Late st Contact [facility]) Description 06/30/2018 Telephone [facility] General Internal Medicine [address] [facility] [address] [place] [address] Greer Kessler MD [address] [place] [address] Social History Tobacco Use Types Packs/Day Years Used Date Smoking Tobacco: Never Smokeless Tobacco: Never Alcohol Use Standard Drinks/Week Comments No 0 (1 standard drink = 0.6 oz pur e alcohol) Comments No Sex and Gender Information Value Date Recorded Sex Assigned at Not on file 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
--- OUTSIDE RECORDS SUMMARY | 2024-11-16 07:50 | XMS_ITS | Clinical Summary ---
Author Organization [facility] Address [address] [place] [address] Phone Care Team Providers Care Account Executive Software Sales Name Role Phone Hector Hall MD Primary Care Provider Hesham Beaulieu MD Unavailable [phone] Avery Olvera MD Unavailable [phone] Chandler Monroy MD Unavailable [phone] Isaak Strong MD Unavailable Hiram Rodriguez MD Unavailable [phone] Allergies Active Allergy Reactions Criticality Noted Date Comments Adhesive Tape-Silicones Rash Medium 10/04/2015 Aminophylline Nausea And Vomiting Low 08/23/2014 Dizziness, diarrhea Diazepam Other (See comments) Low 04/18/2019 Urinary Retention Levofloxacin Nausea And Vomiting Low 08/18/2012 Other Hives Medium 08/13/2011 Angora (rabbit fur) causes red welts Rabbit Other (See comments) Low 05/14/2021 Silicone Other (See comments) Low 05/14/2021 Sulfa (Sulfonamide Antibiotics) Hives Reaction: Hives, Sulfanilamide Hives,Rash Reaction: Hives, Skin Rash, Medications aspirin 81 mg enteric coated tablet Take 1 tablet (81 mg total) by mouth daily 30 tablet 1 03/05/20 21 Active senna-docusate (PERICOLACE) 8.6-50 mg Take 2 tablets by mouth 2 (two) times a day 30 tablet 03/04/20 21 Active cetirizine (ZyrTEC) 10 mg tablet Take 1 tablet (10 mg total) by mouth daily with lunch 30 tablet 03/04/20 21 Active fluticasone propionate (FLONASE) 50 mcg/actuation nasal spray Administer 1 spray into each nostril daily 1 Inhaler 03/04/20 21 Active warfarin (COUMADIN) 5 mg tablet Take 1 tablet (5 mg total) by mouth daily 90 tablet 3 02/06/20 23 Active warfarin (COUMADIN) 3 mg tablet Take 1 tablet (3 mg total) by mouth daily 90 tablet 3 02/06/20 23 Active triamcinolone (KENALOG) 0.1 % ointmentIndicat ions:Skin Inflammation Apply topically 2 (two) times a day 30 g 1 03/18/20 23 Active metoclopramide (REGLAN) 5 mg tablet TAKE 1 TABLET BY MOUTH FOUR TIMES A DAY 100 tablet 1 11/29/19 24 Active Additional Information Patient taking differently: 5 mg oral Daily, Reported on 09/21/2024 pen needle, diabetic (BD Ultra-Fine Short Pen Needle) 31 gauge x 5/16 needle Take 1 needle 3 times a day by miscell. route as directed. Active lisinopriL (PRINIVIL,ZESTR IL) 5 mg tablet Take 1 tablet (5 mg total) by mouth 2 (two) times a day 180 tablet 3 01/17/20 24 Active metFORMIN XR (GLUCOPHAGE XR) 500 mg 24 hr tabletIndicatio ns:Type 2 diabetes mellitus with stage 3a chronic kidney disease, with long-term current use of insulin (HCC) Take 2 tablets (1,000 mg total) by mouth 2 (two) times a day before breakfast and dinner 360 tablet 3 02/21/20 24 2024 Active BD Ultra-Fine Short Pen Needle 31 gauge x 5/16 needleIndicatio ns:Type 2 diabetes mellitus with other diabetic kidney complication, with long-term current use of insulin (HCC) 4 X DAILY 100 each 3 04/18/20 24 Active insulin lispro (HumaLOG, ADMELOG) 100 unit/mL pen for injection 15 units 3 times daily with meals 75 mL 1 04/21/20 24 Active insulin glargine (TOUJEO) 300 unit/mL (1.5 mL) pen for injectionIndica tions:Type 2 diabetes mellitus with other diabetic kidney complication, with long-term current use of insulin ([facility]) INJECT 50 UNITS UNDER THE SKIN EVERY DAY 4.5 mL 3 05/01/20 24 Active flash glucose scanning reader misc 1 Device continuously To read freestyle lily 3 sensor. E11.65 1 each 1 06/19/20 24 Active flash glucose sensor (FreeStyle Lily 2 Sensor) kitIndications: Type 2 diabetes mellitus with stage 3a chronic kidney disease, with long-term current use of insulin ([facility]) Change sensor every 14 days 6 kit 3 06/23/20 24 Active warfarin (COUMADIN) 2 mg tablet TAKE 2 TABLETS BY MOUTH EVERY DAY 60 tablet 11 07/31/19 25 Active insulin aspart (NovoLOG) 100 unit/mL (3 mL) pen for injection 15 units 3 times daily with meals 45 mL 4 08/02/19 25 Active levalbuterol (XOPENEX HFA) 45 mcg/actuation inhalerIndicati ons:Mild intermittent asthma without complication Inhale 1-2 puffs every 6 (six) hours as needed for wheezing or shortness of breath 15 g 1 08/03/19 25 Active metroNIDAZOLE (METROGEL) 0.75 % gelIndications: Acne Rosacea Apply twice daily to rosacea 45 g 2 08/03/19 25 2025 Active rosuvastatin (CRESTOR) 40 mg tablet TAKE 1 TABLET BY MOUTH EVERY DAY 90 tablet 1 09/29/19 25 Active Jardiance 25 mg tablet TAKE 1 TABLET BY MOUTH AT BEDTIME 30 tablet 5 10/14/19 25 Active metoprolol tartrate (LOPRESSOR) 25 mg immediate release tablet TAKE 2 TABLETS BY MOUTH TWICE A DAY 360 tablet 3 10/19/19 25 Active amitriptyline (ELAVIL) 25 mg tablet TAKE 1/2 OF A TABLET BY MOUTH AT BEDTIME ON NIGHTS WORKING NEEDED FOR SLEEP 45 tablet 2 10/21/19 25 Active warfarin (COUMADIN) 1 mg tablet TAKE 1 TABLET BY MOUTH EVERY DAY 90 tablet 3 10/31/19 25 Active SITagliptin (Zituvio) 100 mg tabletIndicatio ns:Type 2 diabetes mellitus with other diabetic kidney complication, with long-term current use of insulin ([facility]) Take one tablet daily. 90 tablet 2 11/01/19 25 Active amLODIPine (NORVASC) 5 mg tablet TAKE 1 TABLET (5 MG TOTAL) BY MOUTH DAILY. 90 tablet 2 11/02/19 25 Active montelukast (SINGULAIR) 10 mg tablet TAKE 1 TABLET BY MOUTH EVERY DAY AT NIGHT 100 tablet 11/07/19 25 Active metoprolol tartrate (LOPRESSOR) 25 mg immediate release tablet TAKE 2 TABLETS BY MOUTH TWICE A DAY 360 tablet 3 11/15/19 24 2024 Discontinued warfarin (COUMADIN) 1 mg tablet TAKE 1 TABLET BY MOUTH EVERY DAY 90 tablet 3 11/26/19 24 2024 Discontinued montelukast (SINGULAIR) 10 mg tablet TAKE 1 TABLET BY MOUTH EVERY DAY AT NIGHT 90 tablet 2 01/25/20 24 2024 Discontinued amLODIPine (NORVASC) 5 mg tablet TAKE 1 TABLET (5 MG TOTAL) BY MOUTH DAILY. 90 tablet 1 04/14/20 24 2024 Discontinued amitriptyline (ELAVIL) 25 mg tablet TAKE 1/2 OF A TABLET BY MOUTH AT BEDTIME ON NIGHTS WORKING NEEDED FOR SLEEP 60 tablet 07/24/19 25 2024 Discontinued SITagliptin (Zituvio) 100 mg tablet Take 1 tablet by mouth once daily 90 tablet 4 08/02/19 25 2024 Discontinued SITagliptin phosphate (Januvia) 100 mg tablet TAKE 1 TABLET BY MOUTH EVERY DAY 30 tablet 3 10/31/19 25 2024 Discontinued Active Problems Problem Noted Date Diagnosed Date Mild intermittent asthma without complication Assessment & Plan (08/03/2024 11:41 AM STUDENT NURSE): - hx of asthma - used to be on advair and xopenex - been off inhaler for 7-8 years - recently had bronchitis which caused an issue - refill Xopenex only for use as needed Rosacea 08/03/2024 Assessment & Plan (08/03/2024 11:42 AM STUDENT NURSE): - chronic condition, worse - used to be on Metrogel but not anymore, new prescription sent Greater trochanteric bursitis of left hip 2024 Assessment & Plan (08/03/2024 11:51 AM STUDENT NURSE): - the right trochanteric bursitis injection in past helped, has noticed her left is bothering her and is interested in an injection as well History of Graves' disease 02/21/2024 Assessment & Plan (02/21/2024 10:17 AM CDT): History of graves disease. Has not been on tratement since 2020. Will update TFTs. Will update labs today. Does not mychart. Verified phone #/address to contact re: results. Preventative health care 09/23/2023 Assessment & Plan (09/23/2023 10:53 AM CDT): - New or chronic worsening conditions: insomnia - Mental health: stable - Dental health: Recommend regular dental care and cleaning. Discussed importance of regular tooth brushing, flossing, and dental visits. - Nutrition: Stressed importance of moderation in sodium/caffeine intake, saturated fat and cholesterol, caloric balance, sufficient intake of fresh fruits, vegetables - Exercise: Stressed the importance of regular exercise as tolerated - Immunizations: Age and sex appropriate immunizations reviewed and offered --> recommend shingles vaccination - Cervical Cancer screening: up to date - Breast Cancer screening: up to date - Colon cancer screening: up to date - Lung cancer screening: n/a - Bone desnity/osteoporosis screening: up to date - control: post-menopausal Gastroparesis 09/23/2023 Assessment & Plan (12/30/2023 11:24 AM CDT): - chronic, controlled - diagnosed in the past - benefited since initiation of Reglan 5mg daily by GI provider Dr. 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 Zimmerman - need for good glycemic control and blood pressure control, has known hypertension, DM2 - currently on Jardiance and Lisinopril - continue follow up with nephrology - recheck labs, order placed Lab Results Component Value Date CREATININE 1.07 12/30/2023 BUNSER 15 12/30/2023 SODIUM 138 12/30/2023 POTASSIUM 4.0 12/30/2023 CO2 21 (L) 12/30/2023 Assessment & Plan (02/21/2024 9:59 AM CDT): Chronic problem. Currently taking Lisinopril & Jardiance. Nephropathy: On BETSY-I / ARB s : Yes. Lisinopril 5mg. Last MA: 09/23/23 (51 calc). Last creat/GFR: 12/30/23 GFR=58, CR=1.07. Assessment & Plan (09/23/2023 10:25 AM CDT): - recently established with nephrology - Dr. Zimmerman - need for good glycemic control and blood pressure control - continue follow up with nephrology Lab Results Component Value Date CREATININE 1.17 (H) 09/13/2023 BUNSER 19 09/13/2023 SODIUM 138 09/13/2023 POTASSIUM 4.3 09/13/2023 CO2 22 09/13/2023 Assessment & Plan (03/24/2023 1:22 PM CDT): - recently established with nephrology - Dr. Zimmerman - need for good glycemic control and blood pressure control - continue follow up with nephrology Lab Results Component Value Date CREATININE 1.13 (H) 02/15/2023 CREATININE 1.13 (H) 02/15/2023 BUNSER 14 02/15/2023 SODIUM 142 02/15/2023 POTASSIUM 4.5 02/15/2023 CO2 22 02/15/2023 Atrophy of vulva 03/18/2023 Personal history of colonic polyps 12/25/2022 Assessment & Plan (03/24/2023 10:48 AM CDT): - up to date with colon cancer screening Colonoscopy 04/03 Impression: - One 10 mm polyp in the proximal ascending colon, removed with a cold snare. Resected and retrieved. Clips (MR conditional) were placed. 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 - One 14 mm polyp in the proximal rectum, removed with a hot snare. Resected and retrieved. Clip (MR conditional) was placed. 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 - Internal hemorrhoids. Recommendation: - Await pathology results. - Repeat colonoscopy in 4 years for surveillance. Trochanteric bursitis of right hip 09/18/2022 Assessment & Plan (03/24/2023 1:19 PM CDT): - recent diagnosis - reviewed prior imaging of both hips - performed steroid injection for right trochanteric bursitis, see procedure note - if desired will do an injection in left trochanteric bursa in future XR Bilateral hips 10/01 FINDINGS: There is no definite evidence of acute displaced fracture or dislocation. There are degenerative changes bilateral hips with joint space narrowing, mild sclerosis, and mild spurring. There are degenerative changes visualized lower lumbar spine. There are degenerative changes bilateral sacroiliac joints with joint space narrowing and mild sclerosis. There is a phleboliths noted overlying the right pelvis. IMPRESSION: Degenerative changes of the bilateral hips without definite evidence of acute displaced fracture or dislocation. Assessment & Plan (09/18/2022 9:42 AM STUDENT NURSE): - new, discussed etiology and management options - will obtain Bilateral XR of hips for evaluation - open to getting steroid injection for it, will schedule after imaging obtained and reviewed Chronic right shoulder pain 02/04/2022 Overview (02/05/2022): XR Shoulder 01/30 - mild AC joint osteoarthritis S/P AVR (aortic valve replacement) 03/11/2021 Overview (06/25/2022): 02/24/21 for bicuspid aortic valve, #19 OnX mechanical valve Echo 07/02 Normal left ventricular systolic function with no focal wall motion abnormalities. Normal left ventricular size. Mild concentric left ventricular hypertrophy. Impaired diastolic relaxation Grade I. Ejection fraction is visually estimated at 65 %. Mechanical On X 19 mm valve in the aortic position. Gradients normal for valve type and size.Peak velocity AOV of 2.5 m/sec. Peak gradient of 23.0 mmHg. Mean gradient of 11.0 mmHg. Valve area of 1.7 cm2. Mild aortic valve regurgitation. Mild pulmonary hypertension based on right ventricular systolic pressure. Estimated peak RVSP is 40-45 mmHg. Mild tricuspid regurgitation. Assessment & Plan (09/23/2023 10:23 AM CDT): - chronic, stable - s/p AVR on 02/24/21 for bicuspid aortic valve, non-rheumatic aortic valve stenosis #19 OnX mechanical valve - recently started on Coumadin, INR getting titrated/managed per cardiology --appears to be suboptimally controlled - continue current management per Cardiology Lab Results Component Value Date INR 1.96 (H) 09/13/2023 INR 2.10 08/09/2023 INR 1.60 (A) 07/13/2023 Assessment & Plan (10/08/2021 10:48 AM CDT): - chronic, stable - s/p AVR on 02/24/21 for bicuspid aortic valve, non-rheumatic aortic valve stenosis #19 OnX mechanical valve - recently started on Coumadin, INR getting titrated per cardiology - continue current management Lab Results Component Value Date INR 2.20 (A) 09/08/2021 INR 2.00 08/26/2021 INR 2.30 06/19/2021 S/P placement of cardiac pacemaker 03/11/2021 Assessment & Plan (05/26/2021 2:33 PM STUDENT NURSE): - subacute, stable condiiton - S/p Insertion of dual-chamber pacemaker with insertion of atrial and ventricular lead and pacemaker generator all from [facility] by Dr. 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 Strong 02/27/2021. Non-seasonal allergic rhinitis due to pollen 03/2021 Assessment & Plan (09/18/2022 9:44 AM STUDENT NURSE): - chronic, stable - currently on Flonase, Singulair on a daily basis - gets cough from time to time and uses tessalon perles - refill provided - continue current management Assessment & Plan (10/18/2020 10:23 AM CDT): - currently on Flonase, Singulair on a daily basis - well controlled on this time Primary insomnia 10/18/2020 Assessment & Plan (08/03/2024 11:35 AM STUDENT NURSE): - chronic, better controlled - states at times she cannot fall asleep and at times she has hard time not sleeping - has been working 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 Assessment & Plan (12/30/2023 11:23 AM CDT): - chronic, not well controlled - states at times she cannot fall asleep and at times she has hard time not sleeping - has been working 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 - currently on amitriptyline 12.5 mg on a nightly basis --> but takes too long to work and then has prolonged tiredness when she wakes up - she also took diphenhydramine for years - close to 10 years and then did not work afterwards - she has been on Ambien which did not work well for her, Valium in the past but had urinary retension - works midnight to mornings, not consistent sleep schedule on days off, need better sleep hygiene - discontinued Amitriptylien 12.5 mg nightly and started Trazodone 50-100 mg nightly on last visit which she has not started taking it due to fear she might oversleep Assessment & Plan (09/23/2023 10:55 AM CDT): - chronic, not well controlled - states at times she cannot fall asleep and at times she has hard time not sleeping - 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 been working 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 - currently on amitriptyline 12.5 mg on a nightly basis --> but takes too long to work and then has prolonged tiredness when she wakes up - she also took diphenhydramine for years - close to 10 years and then did not work afterwards - she has been on Ambien which did not work well for her, Valium in the past but had urinary retension - works midnight to mornings, not consistent sleep schedule on days off, need better sleep hygiene - discontinue Amitriptylien 12.5 mg nightly and start Trazodone 50-100 mg nightly, script sent in Assessment & Plan (03/24/2023 10:48 AM CDT): - chronic, controlled - states at times she cannot fall asleep and at times she has hard time not sleeping - 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 been working 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 - currently on amitriptyline 12.5 mg on a nightly basis (when she takes the full 25 mg tablet it makes her too tired or asleep) for her - she also took diphenhydramine for years - close to 10 years and then did not work afterwards - she has been on Ambien which did not work well for her, Valium in the past but had urinary retension - continue current medication at this time - works midnight to mornings, not consistent sleep schedule on days off, need better sleep hygiene - start Trazodone and if doing well with switch from amitriptyline, start at 50 mg nightly as needed and will start with 1/2 tablet a night first - working on establishing a good sleep hygiene Assessment & Plan (09/18/2022 9:48 AM STUDENT NURSE): - chronic, controlled - currently on amitriptyline 12.5 mg on a nightly basis - reports she has been on Ambien, Valium in the past - continue current medication at this time - works midnight to mornings, not consistent sleep schedule on days off, need better sleep hygiene Assessment & Plan (02/04/2022 9:59 AM CDT): - chronic, Controlled - currently on amitriptyline 25 mg on a nightly basis - well-controlled her medication, continue current medication at this time. Assessment & Plan (10/18/2020 11:29 PM CDT): - currently on amitriptyline 25 mg on a nightly basis - well-controlled her medication, continue current medication at this time. Nonrheumatic aortic valve stenosis 06/10/2020 Overview (08/03/2024): - S/p Aortic valve replacement using #19 mm OnX mechanical valve by Dr. Strong 02/24/2021 Assessment & Plan (08/03/2024 11:47 AM STUDENT NURSE): - S/p Aortic valve replacement using #19 mm OnX mechanical valve by Dr. Strong 02/24/2021 - doing well, follow with Cardiology and CT surgery regularly - has an echo set up to be done soon Assessment & Plan (05/26/2021 2:34 PM STUDENT NURSE): - S/p Aortic valve replacement using #19 mm OnX mechanical valve by Dr. Strong 02/24/2021 - doing well, follow with Cardiology regularly Bicuspid aortic valve 03/22/2020 Overview (03/07/2021): S/p Aortic valve replacement using #19 mm OnX mechanical valve by Dr. Strong 02/24/2021 Assessment & Plan (10/18/2020 10:24 AM CDT): Bicuspid aortic valve Follows with Dr. Beaulieu - Cardiology Next echo next month Has been told she may need surgery Assessment & Plan (03/22/2020 10:27 AM CDT): Recommended follow up with cardiology for repeat TTE RYAN (nonalcoholic steatohepatitis) 07/17/2017 Overview (05/31/2023): Ryan with mild fibrosis in the setting of obesity, diabetes and hypertension Is continues in the OB ETA ICH or LIC acid treatment trial long-term follow-up. Follows with Gastroenterology/hepatology at [facility] 07/2022 - scanned media Overview: Stage 2 with dense z3 PSF on biopsy December 2009 07/03/15 liver biopsy ([facility]A study entry): RYAN stage 2 08/15/15 Fibroscan: LSM 6.1 and 6.4 kPa 12/10/15 US (study): mild steatosis 07/02/16 US (study): mild steatosis but improved, smooth liver contour, no masses 07/23/16 Fibroscan CAP 161, 169; LSM 8.1, 10.4 kPa 01/05/17 liver biopsy ([facility]A 303 study 18 mo): mild RYAN, stage 1a 06/10/17 Fibroscan CAP 211, 232; [...] no focal lesions, gallstones 02/04/23 US (study, Rodriguez): mild steatosis, no nodularity, no focal lesions, no sludge or gallstones Assessment & Plan (12/30/2023 11:25 AM CDT): - chronic, followed by GI - Dr. Olvera - currently on vitamin E supplementation - she is in a study for this for many years, double blind study from [facility] - has been told she has dropped from Stage 3 --> Stage 1.5-2 - gets extensive blood work regularly - currently on statin therapy which was increased from 20 mg to 40 mg daily by GI provider Assessment & Plan (05/26/2021 2:21 PM STUDENT NURSE): - chronic, unknown control - currently on vitamin E supplementation - she is in a study for this for many years, double blind study from [facility] - has been told she has dropped from Stage 3 --> Stage 1.5-2 - gets extensive blood work regularly Assessment & Plan (10/18/2020 11:30 PM CDT): - currently on vitamin E supplementation - she is in a study for this for many years Class 1 obesity due to exces s calories with serious comorbidity and body mass index (BMI) of 32.0 to 32.9 in adult 02/02/2017 Assessment & Plan (08/03/2024 11:37 AM STUDENT NURSE): Wt Readings from Last 3 Encounters: 08/03/24 76.4 kg (168 lb 8 oz) 06/16/24 76.8 kg (169 lb 4.8 oz) 03/28/24 77.1 kg (170 lb) Body mass index is 32.91 kg/m . - chronic, not at goal - goal BMI <30 - BMI Follow-up includes: nutrition counseling, exercise counseling and education - Co-morbidities - hypertension, diabetes, dyslipidemia Assessment & Plan (12/30/2023 11:13 AM CDT): Wt Readings from Last 3 Encounters: 12/30/23 78.6 kg (173 lb 4.8 oz) 10/29/23 77.1 kg (170 lb) 09/23/23 78.4 kg (172 lb 12.8 oz) Body mass index is 33.85 kg/m . - chronic, not at goal - BMI Follow-up includes: nutrition counseling, exercise counseling and education - Co-morbidities - hypertension, diabetes, dyslipidemia Assessment & Plan (10/29/2023 10:02 AM CDT): Chronic, worsening. above goal BMI 33.2 Discussed about healthy lifestyle habits Assessment & Plan (09/23/2023 10:30 AM CDT): Wt Readings from Last 3 Encounters: 09/23/23 78.4 kg (172 lb 12.8 oz) 08/10/23 78.5 kg (173 lb) 05/31/23 77.1 kg (170 lb) Body mass index is 32.67 kg/m . - chronic, not at goal - BMI Follow-up includes: nutrition counseling, exercise counseling and education - Co-morbidities - hypertension, diabetes, dyslipidemia Assessment & Plan (03/24/2023 10:36 AM CDT): Wt Readings from Last 3 Encounters: 03/24/23 77.1 kg (170 lb) 03/18/23 78.3 kg (172 lb 9.6 oz) 03/12/23 77.6 kg (171 lb) Body mass index is 32.12 kg/m . - chronic, not at goal, - some weight gain noted - BMI Follow-up includes: nutrition counseling, exercise counseling and education - has hypertension, diabetes, dyslipidemia Assessment & Plan (09/18/2022 9:20 AM STUDENT NURSE): Wt Readings from Last 3 Encounters: 09/18/22 75.3 kg (166 lb) 06/23/22 71.7 kg (158 lb) 05/04/22 72.6 kg (160 lb) Body mass index is 31.37 kg/m . - chronic, not at goal, - some weight gain noted - BMI Follow-up includes: nutrition counseling, exercise counseling and education - has hypertension, diabetes, dyslipidemia Assessment & Plan (09/26/2021 11:15 AM CDT): Wt Readings from Last 3 Encounters: 09/26/21 70.3 kg (154 lb 14.4 oz) 07/16/21 68.9 kg (152 lb) 08/08/21 68.9 kg (152 lb) Body mass index is 29.28 kg/m . - chronic, stable - BMI Follow-up includes: nutrition counseling, exercise counseling and education provided - Encouraged to eat a diet richer in fruits/veggies and decrease the intake of sugars and fats. Assessment & Plan (10/18/2020 11:22 PM CDT): Wt Readings from Last 3 Encounters: 10/18/20 72.6 kg (160 lb) 08/21/20 73.5 kg (162 lb) 06/10/20 78.1 kg (172 lb 3.2 oz) Body mass index is 30.25 kg/m . - BMI Follow-up includes: nutrition counseling, exercise counseling and education provided - Encouraged to eat a diet richer in fruits/veggies and decrease the intake of sugars and fats. Assessment & Plan (04/08/2018 8:30 AM CDT): BMI Follow-up includes: nutrition counseling, exercise counseling and education provided. Assessment & Plan (02/02/2017 9:55 AM CDT): BMI Follow-up includes: nutrition counseling, exercise counseling and education provided. Kidney cysts 02/06/2016 Overview (05/14/2021): Overview: 02/04/16 ultrasound: 1.8 cm right kidney lesion with debris, no change from prior exam Overview: 02/04/16 ultrasound: 1.8 cm right kidney lesion with debris, no change from prior exam Type 2 diabetes mellitus wit h kidney complication, with long-term current use of insulin 11/25/2013 Assessment & Plan (02/21/2024 10:21 AM CDT): Chronic problem. A1c uncontrolled but improved from 9.0% 10/29/23 to now 8.3%. improvement but reviewed that goal is 7%. Poor diet. Snacks on candy/poor food choices at work. Discussed increasing protein & water intake. Current medications: Metformin XR 1000mg twice daily with meals Jardiance 25mg daily Januvia 100mg daily (stop when she starts mounjaro) Mounjaro 2.5mg weekly Humalog via Omnipod 5 insulin pump but not using Toujeo 50 units daily Humalog 15 units 3 times daily with meals If blood sugar is <150, take 15 units. If blood sugar is between 151-200, take 17 units. If blood sugar is between 201-250, take 19 units. If blood sugar is between 251-300, take 21 units. If blood sugar is between 301-350, take 23 units. If blood sugar is between >351, take 25 units. DM eye exam 04/2023 at [facility]. Letter sent to get copy of report. UTD on labs. Discussed with Blanca Rios: Strive for regular exercise (30min most days) and diet (get at least 4-5 servings of fruit and veggies daily, avoid processed foods, increase lean protein intake and decrease carb portions as well as fruit juices, regular soda & desserts). Watch carbs and simple sugars. Check the blood sugar: Freestyle lily 2. Check the feet daily for skin breakdown and infection. Assessment & Plan (10/29/2023 10:08 AM CDT): Chronic, uncontrolled, worsening A1c 9.1% Goal A1c at least less than 7.5% - 7 %, without hypoglycemia Reviewed patient freestyle Lily 2 download, severe postprandial hyperglycemia noted Poor patient eating habits and lifestyle habits Explain patient to start cooking meals at home eat protein and vegetables with each meal and cutback on portions on carbs. Advised to include more healthy, complex carbs Increase physical activity and include some form of exercise into her daily routine Currently patient off Omnipod pump. Advised to keep holding wearing insulin pump until her skin abscess heals Advised start taking subcu insulin regimen as listed below Start taking Toujeo 50 units SQ daily Humalog 15 units three times with meals + below correctional scale 151 - 200 + 2 units 201 - 250 + 4 units 251 - 300 + 6 units 301 -350 + 8 units Over 351 + 10 units Keep taking Jardiance and metformin XR the same Stop Januvia when you start Mounjaro 2.5 mg subQ weekly Reviewed patient's recent labs from September 2023 We will try to obtain patient last eye exam copy Follow-up in 2 months Assessment & Plan (09/23/2023 10:53 AM CDT): - chronic condition, poorly controlled - states she is not diet compliant - established and follows with Endocrinology - Dr. Hennessy but is retiring soon and told to get referral from PCP --> plans to establish with Dr. Littlejonh next month - currently on insulin PUMP, and also Metformin [id number] BID and Januvia 100 mg daily, Jardiance 25 mg daily - still struggles with poor diet, not diabetic diet, states she is not diet compliant - Reviewed most recent A1c today- as shown below Lab Results Component Value Date HGBA1C 9.1 (H) 09/13/2023 HGBA1C 9.0 (H) 06/07/2023 HGBA1C 8.0 03/24/2023 Maintenance Diabetic (Monofilament) foot exam - up to date Annual dilated eye exams. Up to date Annual Urine microalbumin/creatinine ratio - up to date, done at outside provider BP management B/P today- Well controlled Patient is currently is not on an BETSY/ARB. She used to be on one Goal blood pressure is <140/90, long-term blood pressure goal is to be as close to 120/80 as possible. Dyslipidemia management Personally reviewed most recent LDL as shown below. Patient is on longer on a Cholesterol lowering medication. Goal of less than 70 She used to be on Crestor LDL <100 on 07/2022 Diabetes Complications History of macrovascular disease (CVA, VA, PVD) is not Present. Complications secondary to Diabetes - none Taking baby aspirin daily: No Smoking status: non-smoker Immunizations Assessment & Plan (03/24/2023 1:21 PM CDT): - chronic condition, well controlled - established and follows with Endocrinology - Dr. Hennessy - currently on Insulin basal and meal time insulin and also Metformin 1000mg BID and januvia 100 mg , Jardiance 25 mg daily - still struggles with poor diet, not diabetic diet - Reviewed most recent A1c today- as shown below Lab Results Component Value Date HGBA1C 8.0 03/24/2023 HGBA1C 8.6 (H) 11/02/2022 HGBA1C 8.8 (H) 03/27/2022 Maintenance Diabetic (Monofilament) foot exam - up to date Annual dilated eye exams. Up to date Annual Urine microalbumin/creatinine ratio - up to date, done at outside provider BP management B/P today- Well controlled Patient is currently is not on an BETSY/ARB. She used to be on one Goal blood pressure is <140/90, long-term blood pressure goal is to be as close to 120/80 as possible. Dyslipidemia management Personally reviewed most recent LDL as shown below. Patient is on longer on a Cholesterol lowering medication. Goal of less than 70 She used to be on Crestor LDL <100 on 07/2022 Diabetes Complications History of macrovascular disease (CVA, VA, PVD) is not Present. Complications secondary to Diabetes - none Taking baby aspirin daily: No Smoking status: non-smoker Immunizations Assessment & Plan (02/04/2022 9:58 AM CDT): - chronic condition, poorly controlled - established and follows with Endocrinology - Dr. Hennessy - currently on Insulin and also Metformin 1000mg BID and januvia 25mg , Jardiance as well - still struggles with poor diet, not diabetic diet - Reviewed most recent A1c today- as shown below Lab Results Component Value Date HGBA1C 9.8 (H) 11/04/2021 HGBA1C 10.3 (H) 06/16/2021 HGBA1C 8.7 (H) 05/15/2021 Maintenance Diabetic (Monofilament) foot exam - up to date Annual dilated eye exams. Apparently completed, will need to get records Annual Urine microalbumin/creatinine ratio - TBD No results found for: ALBCREATRATU BP management B/P today- Well controlled Patient is currently is not on an BETSY/ARB. She used to be on one Goal blood pressure is <140/90, long-term blood pressure goal is to be as close to 120/80 as possible. Dyslipidemia management Personally reviewed most recent LDL as shown below. Patient is no longer on a Cholesterol lowering medication. Goal of less than 70 She used to be on Crestor Lab Results Component Value Date LDLCALC 84 11/04/2021 Diabetes Complications History of macrovascular disease (CVA, VA, PVD) is not Present. Complications secondary to Diabetes - none Taking baby aspirin daily: No Smoking status: non-smoker Immunizations Assessment & Plan (05/26/2021 2:20 PM STUDENT NURSE): - chronic condition, not at goal - improving A1c - established and follows with Endcorinology - currently on Metformin 1000mg BID and januvia 25mg - no longer on insulin or other medications - Reviewed most recent A1c today- as shown below Lab Results Component Value Date HGBA1C 8.7 (H) 05/15/2021 - medication management per Endocrinology Maintenance Diabetic (Monofilament) foot exam - up to date Annual dilated eye exams. Apparently completed, will need to get records Annual Urine microalbumin/creatinine ratio - TBD No results found for: ALBCREATRATU BP management B/P today- Well controlled Patient is currently is not on an BETSY/ARB. She used to be on one Goal blood pressure is <140/90, long-term blood pressure goal is to be as close to 120/80 as possible. Dyslipidemia management Personally reviewed most recent LDL as shown below. Patient is no longer on a Cholesterol lowering medication. Goal of less than 70 She used to be on Crestor No results found for: LDLCALC Diabetes Complications History of macrovascular disease (CVA, VA, PVD) is not Present. Complications secondary to Diabetes - none Taking baby aspirin daily: No Smoking status: non-smoker Immunizations Assessment & Plan (10/18/2020 11:25 PM CDT): - last A1c was 9.8 Current medicatiosn are Metformin 100mg BID Glymeperide 1mg BID Glargine 40 untis daily Humalog 14 units BID - but only doing it once daily because she only eats once a day Most recent A1c was 9.8 in 09/2020 Chronic condition which is poorly controlled Initial diagnosis - Currently follows with Endocrinology. Reviewed most recent A1c today- as shown below Lab Results Component Value Date HGBA1C 8.3 (H) 03/22/2020 Medications continue Metformin 1000mg BID Glymeperide 1mg BID Glargine 40 units daily Humalog 14 units BID with meals Monitor blood sugar 3-4 times a day. Personally reviewed blood sugar logs Maintenance Diabetic (Monofilament) foot exam - has protective senses intact Annual dilated eye exams. Last dilated eye exam was Due for one Annual Urine microalbumin/creatinine ratio - Order placed No results found for: ALBCREATRATU BP management B/P today- Well controlled Patient is currently is on an BETSY/ARB. Goal blood pressure is <140/90, long-term blood pressure goal is to be as close to 120/80 as possible. Dyslipidemia management Personally reviewed most recent LDL as shown below. Patient is on a Cholesterol lowering medication. Goal of less than 70 No results found for: LDLCALC Diabetes Complications History of macrovascular disease (CVA, VA, PVD) is not Present. Complications secondary to Diabetes - none Taking baby aspirin daily: No Smoking status: non-smoker Immunizations Discussed labs/ordered labs that have been ordered if applicable. Discussed eating a healthy low carb diet, include fresh fruits and vegetables daily. Diabetic education and nutritional counseling available if you have not had this before or annually. Encouraged to try moving at least a total of 30 minutes/day. Just move more. Instructed to wash, dry, lotion and check feet daily. Instructed to notify office if blood sugars are less than 80 or greater than 250 for 3 days Assessment & Plan (03/22/2020 10:26 AM CDT): Managed by endocrinology A1c today Eye exam 08/2019 Assessment & Plan (11/07/2019 3:34 PM CDT): BG pattern improved by pt report. Reviewed education on DM pathophysiology, medications, BG goals, exercise. She is interested and appears motivated to want to learn. Current medication treatment plan working at this time. Will evaluate and adjust at NOV. Assessment & Plan (08/21/2019 12:55 PM STUDENT NURSE): Your Hba1c today was: Lab Results Component Value Date HGBA1C 10.2 08/21/2019 meaning a 3 month average sugar of : 247 Your goal hba1c is under 7.0 to prevent parts counterman diabetes complications ( eye , kidney and nerve damage ) . Your goal sugars are in the 90-130 range Exercise recommendations: It is recommended that you do daily aerobic ( walking, riding a bike, swimming ) and resistance exercises ( light weight lifting, resistance band stretching ) for at least 30 minutes , most days of the week. If you can not walk, chair exercises for 10-15 min a day would help tremendously. As little as 15-20 minutes exercise , in one or two sessions a day, is still very helpful to improve your diabetes control . Diet recommendations: Eat small portion meals, trying not to consume more than 1800 calories a day . Try to eat not more than than 2 servings of carbs ( starches ) wiith your meals. Avoid soft drinks, including regular sodas , fruit juices and sweetened tea. Drink water instead. Eat plenty of green and leafy vegetables, including salads. Medications: Take your medications regularly. Setting phone alarms can help . Keep your medication on the kitchen dinner table, by the bedside table or by the sink where they are visible to you. If you are taking insulin : the insulin that you are currently using does not need to be refrigerated. Keep it where you can see it . Monitor your sugar levels with finger sticks regularly and keep a log sheet or book. Bring your sugar meter and /or a log book or log sheet to every office visit. Will request DEXCOM Increase Toujeo to 40 units once a day Start Humalog, 10 units before your 2 largest meals For sugars over 200,take 12 For sugars over 300,take 14 Stay on Metformin and Invokana Take Glimepiride 2 mg once a day Assessment & Plan (06/06/2019 9:08 AM STUDENT NURSE): I am concerned about her diabetic control we reviewed all her A1cs over the last year she has not been under 8.9. At this point I will refer Dr. Pink at [facility] as she states her spinner fixer at [facility] is likely retiring in the next year Assessment & Plan (04/08/2018 9:01 AM CDT): Diabetic control has been poor with review [...] the 9 range, she does see an spinner fixer however I am concerned that she has [...] think she will be a good candidate Assessment & Plan (12/31/2017 9:16 AM CDT): Diabetic control has been good with review of patient's last a1c, I have reviewed and addressed all of the other diabetic benchmarks including the diabetic eye exam, foot exam, renal protection, reaching LDL goal of <100. Will make adjustments as needed to current regimen. Last A1c of 9.[address] elpidio Yu at [facility] he has adjusted her Lantus Assessment & Plan (09/24/2017 10:50 AM CDT): Follows with Dr. Elpidio Yu at [facility] she is concerned about her blood sugars being worse . We will check an A1c today I will add xutolphy to her regimen at 15 U. Assessment & Plan (06/08/2017 9:45 AM STUDENT NURSE): Diabetic control has been poor with review of patient's last a1c, I have reviewed and addressed all of the other diabetic benchmarks including the diabetic eye exam, foot exam, renal protection, reaching LDL goal of <100. Will make adjustments to the current regimen. Sees Dr MONROY up to 9.3 Assessment & Plan (02/02/2017 10:13 AM CDT): Diabetic control has been poor with review of patient's last a1c, I have reviewed and addressed all of the other diabetic benchmarks including the diabetic eye exam, foot exam, renal protection, reaching LDL goal of <100. Will make adjustments to the current regimen. Now on lantus as per dr monroy Hypertension associated with diabetes 11/25/2013 Assessment & Plan (08/03/2024 11:36 AM STUDENT NURSE): BP Readings from Last 3 Encounters: 08/03/24 124/74 06/16/24 118/60 03/28/24 130/78 - chronic, well controlled - she has IDDM2, Dyslipidemia - currently on Amlodipine 5mg, Metoprolol lopressor 25mg BID, Lisinopril 5 mg BID - follow low salt diet - The current medical regimen is effective; continue present plan and medications. Assessment & Plan (02/21/2024 9:58 AM CDT): Chronic problem. Currently taking lisinopril 5mg daily, metoprolol tartrate 50mg bid, amlodipine 5mg daily Assessment & Plan (12/30/2023 11:14 AM CDT): BP Readings from Last 3 Encounters: 12/30/23 120/80 10/29/23 124/60 09/23/23 110/68 - chronic, well controlled - she has IDDM2, Dyslipidemia - currently on Amlodipine 5mg, Metoprolol lopressor 25mg BID, Lisinopril 5 mg BID - follow low salt diet - continue current medications at this time Assessment & Plan (10/29/2023 10:01 AM CDT): Chronic, well controlled Continue lisinopril, amlodipine, metoprolol Assessment & Plan (09/23/2023 10:27 AM CDT): BP Readings from Last 3 Encounters: 09/23/23 110/68 08/10/23 136/82 05/31/23 116/84 - chronic, well controlled - she has IDDM2, Dyslipidemia - currently on Amlodipine 5mg, Metoprolol lopressor 25mg BID, Lisinopril 5 mg BID - follow low salt diet - continue current medications at this time Assessment & Plan (03/24/2023 10:36 AM CDT): BP Readings from Last 3 Encounters: 03/24/23 110/74 03/18/23 126/76 03/12/23 140/75 - chronic, well controlled - she has IDDM2, Dyslipidemia - currently on Amlodipine 5mg, Metoprolol lopressor 25mg BID - follow low salt diet - continue current medications at this time Assessment & Plan (09/18/2022 9:19 AM STUDENT NURSE): - chronic, well controlled - she has IDDM2, Dyslipidemia - currently on Amlodipine 5mg, Metoprolol lopressor 25mg BID - no longer on Lisinopril and Terazosin - follow low salt diet - continue current medications at this time Assessment & Plan (02/04/2022 9:56 AM CDT): - chronic, well controlled - she has IDDM2, Dyslipidemia - currently on Amlodipine 5mg, Metoprolol lopressor 25mg BID - no longer on Lisinopril and Terazosin - follow low salt diet - continue current medications at this time Assessment & Plan (10/08/2021 10:41 AM CDT): - chronic, well controlled - she has IDDM2, Dyslipidemia - currently on Amlodipine 5mg, Metoprolol lopressor 25mg BID - no longer on Lisinopril and Terazosin - follow low salt diet - continue current medications at this time Assessment & Plan (05/26/2021 2:12 PM STUDENT NURSE): - chronic, well controlled - currently on several medications - currently on Amlodipine 5mg, Metoprolol lopressor 25mg BID - no longer on Lisinopril and Terazosin - continue current medications at this time - she has IDDM2, Dyslipidemia Assessment & Plan (10/18/2020 11:22 PM CDT): - currently on several medications - currently well controlled - currently on Amlodipine 5m, Lisinopril 20mg and Metoprolol lopressor 100mg daily and Terazosin 1mg daily - continue current medications at this time - she has IDDM2, Dyslipidemia Assessment & Plan (03/22/2020 10:26 AM CDT): BP well controlled Continue current regimen Assessment & Plan (11/07/2019 3:44 PM CDT): Continue current medication. Check random home BP Assessment & Plan (04/08/2018 9:00 AM CDT): Hypertension is unchanged. Weight loss. Blood pressure will be reassessed in 3 months. Assessment & Plan (12/31/2017 9:16 AM CDT): Hypertension is improving with treatment. Regular aerobic exercise. Blood pressure will be reassessed in 3 months. 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 Lab Results Component Value Date LDLCALC 46 09/13/2023 Assessment & Plan (02/21/2024 9:58 AM CDT): Chronic problem. At goal on current Rosuvastatin 40mg. Last lipid panel: 09/13/23 LDL=46, HT=319. Assessment & Plan (12/30/2023 11:15 AM CDT): - chronic, stable - currently on Crestor 40 mg daily - most recent LDL was 82 on 07/2021 - HDL 37, LDL 82, Trig 150, Total cholesterol 142 - no longer on this medication - question why - has has of DM2, HTN, no hx of CAD or CVD - follows with cardiology - continue current therapy Lab Results Component Value Date LDLCALC 46 09/13/2023 Assessment & Plan (10/29/2023 10:01 AM CDT): Chronic, stable Continue statin therapy Assessment & Plan (09/23/2023 10:21 AM CDT): - chronic, stable - has been on Crestor 20mg daily - most recent LDL was 82 on 07/2021 - HDL 37, LDL 82, Trig 150, Total cholesterol 142 - no longer on this medication - question why - has has of DM2, HTN, no hx of CAD or CVD - follows with cardiology - continue current therapy Lab Results Component Value Date LDLCALC 46 09/13/2023 Assessment & Plan (03/24/2023 10:36 AM CDT): - chronic, stable - has been on Crestor 20mg daily - most recent LDL was 82 on 07/2021 - HDL 37, LDL 82, Trig 150, Total cholesterol 142 - no longer on this medication - question why - has has of DM2, HTN, no hx of CAD or CVD - follows with cardiology - continue current therapy Lab Results Component Value Date LDLCALC 61 03/27/2022 Assessment & Plan (02/04/2022 10:03 AM CDT): - chronic, stable - has been on Crestor 20mg daily - most recent LDL was 82 on 07/2021 - HDL 37, LDL 82, Trig 150, Total cholesterol 142 - no longer on this medication - question why - has has of DM2, HTN, no hx of CAD or CVD - follows with cardiology - continue current therapy Lab Results Component Value Date LDLCALC 84 11/04/2021 Assessment & Plan (10/08/2021 10:41 AM CDT): - chronic, stable - has been on Crestor 20mg daily - most recent LDL was 82 on 07/2021 - HDL 37, LDL 82, Trig 150, Total cholesterol 142 - no longer on this medication - question why - has has of DM2, HTN, no hx of CAD or CVD - follows with cardiology - continue current therapy Assessment & Plan (05/26/2021 2:23 PM STUDENT NURSE): - chronic, stable - has been on Crestor 20mg daily - most recent LDL was 91 on 09/2020 - no longer on this medication - question why - has has of DM2, HTN, no hx of CAD or CVD Assessment & Plan (10/18/2020 10:20 AM CDT): - has been on Crestor 20mg daily - most recent LDL was 91 on 09/2020 - continue current medication - has has of DM2, HTN, no hx of CAD or CVD Assessment & Plan (03/22/2020 10:26 AM CDT): Continue crestor 20 Assessment & Plan (11/07/2019 3:44 PM CDT): Continue statin, lower fat food choices, increase exercise Assessment & Plan (04/08/2018 9:00 AM CDT): Lipid abnormalities are improving with treatment. Pharmacotherapy as ordered. Lipids will be reassessed in 3 months I reviewed her lipid profile from Dr. Elpidio Yu looks excellent with an LDL 74. Assessment & Plan (12/31/2017 9:17 AM CDT): Lipid abnormalities are improving with treatment. Pharmacotherapy as ordered. Lipids will be reassessed in 6 months Lipids are excellent reviewed this today LDL under 174. Assessment & Plan (09/24/2017 10:49 AM CDT): We will recheck a fasting lipid profile in the next few months Assessment & Plan (06/08/2017 9:54 AM STUDENT NURSE): As per her spinner fixer Assessment & Plan (02/02/2017 10:13 AM CDT): Lipid abnormalities are improving with treatment. Pharmacotherapy as ordered. Lipids will be reassessed in 6 months. Metabolic syndrome 08/01/2010 Resolved Problems Problem Noted Date Diagnosed Date Resolved Date Skin abscess 10/29/2023 08/03/2024 Assessment & Plan (10/29/2023 10:04 AM CDT): Patient currently on oral doxycycline Advised to follow with PCP and if does not heal patient might need to see surgeon for I and D Encounter for screening colonoscopy 12/25/2022 09/23/2023 Screen for colon cancer 09/18/202203/12 Assessment & Plan (09/18/2022 9:41 AM STUDENT NURSE): - was not able to do Colonoscopy, lost transportation - discussed cologuard, wants to check with her insurance about coverage - let me know Bilateral hip pain 09/18/2022 Assessment & Plan (09/18/2022 9:43 AM STUDENT NURSE): - new, states has been going on for 1-2 years - physical exam reassuring except for right trochanteric bursitis - obtain XR of both hips, order placed Hypercalcemia 05/14/2021 09/23/2023 Graves disease 03/22/2020 10/29/2023 Assessment & Plan (09/23/2023 10:29 AM CDT): - chronic, stable - follows with Endocrinology - Dr. Burk but retiring soon - first diagnosed at age of 28 - was on Methimazole but no longer since she had heart surgery in 2020 - never had surgical removal or radioactive treatment - most recent labs as shown below Lab Results Component Value Date TSH 0.69 09/13/2023 Lab Results Component Value Date FREET4 1.43 11/02/2022 FREET4 1.39 03/27/2022 FREET4 1.28 11/04/2021 Assessment & Plan (10/18/2020 11:29 PM CDT): - follows with Endocrinology - first diagnosed at age of 28 - currently on Methimazole only - never had surgical removal or radioactive treatment - Last TSH 0.9 on 09/2020 Assessment & Plan (03/22/2020 10:27 AM CDT): On methimazole Follows with endocrinology Annual visit for general guanako lt medical examination with abnormal findings 06/06/201909/22 Assessment & Plan (10/08/2021 10:51 AM CDT): Patient here to today for physical exam. The patient was evaluated and all health maintenance objectives were discussed and addressed. Over due for colon cancer screening and cervical cancer screening. She will try to get transportation for colonoscopy. She is also overdue for breast cancer screening. Discussed this, order placed. Assessment & Plan (06/06/2019 8:50 AM STUDENT NURSE): Patient here to today for physical exam. The patient was evaluated and all health maintenance objectives were discussed and addressed. Palpitation 02/02/2017 09/23/2023 Assessment & Plan (04/08/2018 9:00 AM CDT): No current complaints Assessment & Plan (06/08/2017 9:54 AM STUDENT NURSE): Again no issues currently Assessment & Plan (02/02/2017 10:21 AM CDT): Will defer to Dr BEAULIEU, [facility] Viral upper respiratory tract infection 08/28/2016 03/22/2020 Overview (10/16/2016): Viral upper respiratory tract infection Assessment & Plan (02/02/2017 10:20 AM CDT): No sx currently Asthma 02/06/2016 10/08/2021 Low back pain 05/01/2015 10/18/2020 Overview (10/15/2016): Right-sided low back pain without sciatica Assessment & Plan (09/24/2017 10:49 AM CDT): She is not complaining of back pain today Assessment & Plan (06/08/2017 9:54 AM STUDENT NURSE): States she is not having any current issues Assessment & Plan (02/02/2017 10:20 AM CDT): Stable at this time SOFI (obstructive sleep apnea) 10/12/2013 09/23/2023 Abdominal pain 09/18/2012 09/23/2023 Overview (05/14/2021): Overview: 03/22/12 EGD: normal duodenal biopsies Overview: 03/22/12 EGD: normal duodenal biopsies Hyperlipidemia 09/18/2012 09/26/2021 Goiter 02/16/2012 10/08/2021 Hyperthyroidism 08/01/2010 10/29/2023 Assessment & Plan (09/23/2023 10:30 AM CDT): - chronic condition, stable - used to be on Methimazole been off of it since 2020 - follows with endocrinology - Dr. Burk who is retiring soon - most recent TSH as shown below - will continue to monitor Lab Results Component Value Date TSH 0.69 09/13/2023 Assessment & Plan (05/26/2021 2:14 PM STUDENT NURSE): - chronic condition, stable - used to be on Methimazole but recently removed due to normal thyroid gland function - follows with endocrinology - most recent TSH as shown below Lab Results Component Value Date TSH 0.69 05/15/2021 GERD (gastroesophageal reflux disease) 10/22/2009 08/03/2024 Encounters Date Type Department Care Team Description 10/26/[address] [facility] at [address] [place] [address] Denis Mullen MA 10/26/[address] [facility] at [address] [place] [address] Denis Mullen MA 10/13/2024 8:59 AM CDT - 10/13/2024 11:59 PM CDT Hospital Encounter [facility] Nutrition and Diabetic Education 1 [facility] [address] [place] [address] Radha Garnica, RN Type 2 diabetes mellitus with other diabetic kidney complication, with long-term current use of insulin (HCC) Discharge Disposition: Discharge to home or self care 09/21/2024 10:30 AM CDT Office Visit [facility] Diabetes Endocrine Care at [address] [place] [id number] Sofya Garcia, Type 2 diabetes mellitus with other diabetic kidney complication, with long-term current use of insulin (HCC) (Primary Dx); Dyslipidemia associated with type 2 diabetes mellitus (HCC); Hypertension associated with diabetes (HCC) 09/20/[address] [facility] at [address] [place] [address] Denis Mullen MA 09/20/[address] [facility] at [address] [place] [address] Denis Mullen MA 09/19/2024 11:15 AM CDT Office Visit [facility] Surgery [address] [facility] [address] [place] [address] Rosalba Gonzalez NP Bicuspid aortic valve (Primary Dx) 09/08/[address] [facility] at [address] [place] [address] Denis Mullen MA 09/08/[address] [facility] at [address] [place] [address] Denis Mullen MA 09/07/2024 Orders Only [facility] Primary Care at [address] [place] [address] Hector Hall MD Postmenopausal (Primary Dx) 09/07/2024 Telephone [facility] Primary Care at [address] [place] [phone] Hector Hall MD Medical Question/Miscellaneo us 09/05/2024 8:30 AM STUDENT NURSE Ancillary Procedure [facility] [address] [place] [address] Complete heart block (HCC); Cardiac pacemaker in situ 08/23/2024 8:51 AM STUDENT NURSE - 08/23/2024 11:59 PM STUDENT NURSE Hospital Encounter [facility] Cardiology [address] [place] [address] Nonrheumatic aortic valve stenosis Discharge Disposition: Discharge to home or self care from Last 3 Months Immunizations Immunization Administration Dates Next Due Flucelvax Influenza Quad 03/25/2017 Hep B, Unspecified 07/12/1993 Influenza, Quadrivalent, Laurie l Culture-based MDCK, Preservative Free, Antibiotic Free, Intramuscular 03/24/2022,03/26/2017 Influenza, Quadrivalent, Spl it, Preservative Free, Intramuscular 04/28/2023,03/25/2021,03/15/2020,04/05,03/27/2018,04/01/2015,04/03/2014 Influenza, Split 04/11/2010 Influenza, Trivalent, Adjuva nted, Intramuscular 04/02/2015,04/03/2014 Influenza, Trivalent, Cell Culture-based MDCK, Preservative Free, Antibiotic Free, Intramuscular 03/25/2017 Influenza, Trivalent, IM (MDV) 05/09/2013,2010 Influenza, Trivalent, Recomb inant, Egg Free, Preservative Free, Antibiotic Free, IM (FLUBLOK) 04/02/2015,04/03/2014 Influenza, Unspecified 04/11/2024,2022(Deferred: Patient Refused),03/23/2021,04/05/2019, 018,04/16/2017 MMR 12/08/2005,11/06/2005 Moderna SARS-CoV-2 Monovalen t Vaccination (12+ YRS) 05/08/2021,08/05/2020,07/09/2020 Pneumococcal Conjugate PCV 13 05/10/2015 Pneumococcal Polysaccharide PPV23 05/12/2024,07/2006 Td, adsorbed 07/12/2004 Tdap 06/06/2019 Surgical History Surgery Date Site/Laterality Comments TONSILLECTOMY Tonsillectomy OTHER SURGICAL HISTORY Screening Colonoscopy OTHER SURGICAL HISTORY Vomiting: EGD COLONOSCOPY 10 years ago COLONOSCOPY 03/12/2023 AORTIC VALVE REPLACEMENT 02/24/2021 Medical History Medical History Date Comments Vomiting Vomiting; Commen ts: SAB 02/09/2015 - Hx Other Medical palpitations Hypertension Hyperlipidemia Thyroid disease Diabetes mellitus (HCC) Asthma Nonrheumatic aortic (valve) stenosis PONV (postoperative nausea and vomiting) Graves disease RYAN (nonalcoholic steatohepatitis) is in a double-blind study @ [facility] through [facility] Exposure to TB 1978 sister was posti ve for TB Colon polyp Type 2 diabetes mellitus (HCC) Dysmenorrhea Family History Medical History Relation Name Comments Coronary artery disease Father Amelia nary artery disease; Graves' disease Father Heart disease Father Hypertension Father Hypertension Mother Kidney disease Mother Renal disease ; Kidney failure Mother Breast cancer Mother's Sister great aunt Hypertension Sister 1 Osteoporosis Sister 1 Diastolic heart disfunction Sister 2 Relation Name Status Comments Father Mother Mother's Sister great aunt Alive Other great aunt Sister 1 Sister 2 Alive Social History Tobacco Use Types Packs/Day Years Used Date Smoking Tobacco: Never Smokeless Tobacco: Never Tobacco Cessation:Counseling Given: Not Answered Alcohol Use Standard Drinks/Week Comments Never 0 (1 standard drink = 0.6 oz pur e alcohol) Humiliation, Afraid, Rape, and Kick questionnair e Answer Date Recorded Within the last year, have y ou been afraid of your partner or ex-partner? No 02/25/2021 Within the last year, have y ou been humiliated or emotionally abused in other ways by your partner or ex-partner? No Within the last year, have y ou been kicked, hit, slapped, or otherwise physically hurt by your partner or ex-partner? No 02/25/2021 Within the last year, have y ou been raped or forced to have any kind of sexual activity by your partner or ex-partner? No 02/25/2021 Social Connection and Isolation Panel [NHANES] A nswer Date Recorded In a typical week, how many times do you talk on the phone with family, friends, or neighbors? Three times a week 02/25/2021 How often do you get togethe r with friends or relatives? Patient declined 02/25/2021 How often do you attend [facility] or protestant services? Patient declined 02/25/2021 Do you belong to any clubs o r organizations such as pentecostal groups, unions, fraternal or athletic groups, or school groups? Patient declined 02/25/2021 How often do you attend meet ings of the clubs or organizations you belong to? Patient declined 02/25/2021 Are you , , di vorced, , never , or living with a partner? 02/25/2021 AUDIT-C Answer Date Recorded Q1: How often do you have a drink containing alcohol? Never 02/02/2024 Q2: How many drinks containi ng alcohol do you have on a typical day when you are drinking? Patient does not drink Q3: How often do you have si x or more drinks on one occasion? Never 02/02/2024 Overall Financial Resource Strain (CARDIA) Answe r Date Recorded How hard is it for you to pa y for the very basics like food, housing, medical care, and heating? Not hard at all 02/25/2021 PHQ-2 Answer Date Recorded PHQ-2 Total Score (If total score is 3 or more points, staff should administer the PHQ-9) 0 02/02/2024 [facility] - Occupational Stress Questionnaire Answer Date Recorded Do you feel stress - tense, restless, nervous, or anxious, or unable to sleep at night because your mind is troubled all the time - these days? To some extent 02/25/2021 Exercise Vital Sign Answer Date Recorde d On average, how many days pe r week do you engage in moderate to strenuous exercise (like a brisk walk)? Patient declined On average, how many minutes do you engage in exercise at this level? Patient declined 02/25/2021 Hunger Vital Sign Answer Date Recorded Within the past 12 months, y ou worried that your food would run out before you got the money to buy more. Never true 02/26/20 21 Within the past 12 months, t he food you bought just didn't last and you didn't have money to get more. Never true 02/25/2021 PRAPARE - Transportation Answer Date Re corded In the past 12 months, has l ack of transportation kept you from medical appointments or from getting medications? No 02/09 In the past 12 months, has l ack of transportation kept you from meetings, work, or from getting things needed for daily living? No 02/25/2021 Housing Stability Vital Sign Answer Cecil e Recorded In the last 12 months, was t here a time when you were not able to pay the mortgage or rent on time? No 02/25/2021 In the last 12 months, how many places have you lived? 1 02/25/2021 In the last 12 months, was t here a time when you did not have a steady place to sleep or slept in a retirement (including now)? No 02/25/2021 Personal Safety Answer Date Recorded Have you ever been in or are you currently in a harmful physical or emotional relationship or is someone making you feel afraid or unsafe? Denies 03/12/2023 Comments No Sex and Gender Information Value Date Recorded Sex Assigned at Not on file Legal Sex Female 10:04 AM STUDENT NURSE Gender Identity Not on file Sexual Orientation Not on file Obstetrics History Para Term AB IAB SAB Ectopic Multiple Livin g Live Births 0 0 0 0 0 0 0 0 0 0 0 Last Filed Vital Signs Vital Sign Reading Time Taken Comments Blood Pressure 118/68 09/21/2024 10:28 AM CDT Pulse 80 09/21/2024 10:28 AM CDT Temperature 36.8 C (98.2 F) 08/03/2024 11:15 AM STUDENT NURSE Respiratory Rate 16 09/19/2024 11:22 AM CDT Oxygen Saturation 97% 09/19/2024 11:22 AM CDT Inhaled Oxygen Concentration - - Weight 75.8 kg (167 lb 3.2 oz) 09/21/2024 10:28 AM CDT Height 152.4 cm (5') 09/21/2024 10:28 AM CDT Body Mass Index 32.65 09/21/2024 10:28 AM CDT Plan of Treatment Health Maintenance Due Date Last Done Comments Covid-19 Vaccine (2023-08 5 season) 2024 06/18/2023, 04/22/2022, 11/07/2021, Additional history exists Albumin Creatinine Ratio, Urine 09/22/2024 09/23/2023, 08/04/2022, 06/06/2019 Zoster Vaccine (2 of 2) 10/25/2024 08/30/2024 Foot Exam 10/28/2024 10/29/2023, 2 01/2022, 10/18/2020, Additional history exists Hemoglobin A1C 01/31/2025 08/03/2024, 12/12/2023, 02/21/2024, Additional history exists Depression Screening 02/01/2025 02/02/2024, 12/30/2023, 09/23/2023, Additional history exists Fall Risk Assessment 02/01/2025 02/02/2024, 12/30/2023, 10/29/2023, Additional history exists Breast Cancer Screening-Mammogram 03/21/2025 03/21/2024, 12/26/2022, 12/16/2021, Additional history exists Cervical Cancer Screening 03/28/2025 03/28/2024, 01/2023 Well Visit 65+ 03/28/2025 03/28/2024, 09/09, 03/18/2023, Additional history exists Dilated Eye Exam 06/09/2025 06/09/2023, 03/2022, 07/06/2018, Additional history exists Lipid Panel 08/03/2025 08/03/2024, 03/0 10/2023, 06/17/2023, Additional history exists eGFR 08/03/2025 08/03/2024, 12/11, 09/13/2023, Additional history exists Osteoporosis Screening-Bone Density Scan 09/08/2026 09/08/2024 Pneumococcal vaccine 65+ (3 of 3 - PCV20 or PCV21) 05/12/2029 05/12/2024, 05/10/2015, 07/12/2006 DTaP/Tdap/Td Vaccine (2 - Td or Tdap) 06/06/2029 06/06/2019, 07/12/2004 Colon Cancer Screening-Colonoscopy 03/12/2033 03/12/2023, 06/08/2010 Hepatitis C Screening Completed 06/06/2019 Colon Cancer Screening-CT Colonography Discontinued 03/12/2023, 06/08/2010 Colon Cancer Screening-DNA Stool Discontinued 03/12/20, 06/08/2010 Colon Cancer Screening-FIT Discontinued 03/12/2023, Colon Cancer Screening-Sigmoidoscopy Discontinued 03/12/2023, 06/08/2010 Influenza Vaccine Completed 04/11/2024, , 03/24/2022, Additional history exists Medical Devices Implanted Type Area [employer]orer [employer] Device Identifier Shelf Expiration Date Model / Serial / Lot [employer] 8tc/52 Tendril Sts 6fr 52cm Is-1 Connector Active Fixation Bipolar Soft - [id number] - [id number] Implanted:Qty: 1 on 02/27/2021 by Isaak Strong MD at [facility] Lead Left: Chest [employer] [id number] 12/10/2023 2088TC/5 2 / [id number] / [employer] 8tc/46 Tendril Sts 6fr 46cm Is-1 Connector Bipolar Active Fixation - [id number] - [id number] Implanted:Qty: 1 on 02/27/2021 by Isaak Strong MD at [facility] Lead Left: Chest [employer] [id number] 04/10/2023 2088TC/4 6 / [id number] / [employer] [id number] Assurity Mri 83o32md 2 Chamber Is-1 Connector Thk6mm Pacemaker - [id number] - [id number] Implanted:Qty: 1 on 02/27/2021 by Isaak Strong MD at [facility] Pacemaker Left: Chest [employer] [id number] 08/11/2022 [id number] / [id number] / Valve Aortic On-X Carbon Ptfe 19 Cylindrical H13.3 Mm H10.8 Mm Od19 Mm Odsec27 Mm Id17.4 Mm Mechanical Sewing Ring Extend Chaidez Nonsterile - [id number] - [id number] Implanted:Qty: 1 on 02/24/2021 by Isaak Strong MD at [facility] Prosthetic Valve N/A: Heart On-X Intrnl 10/03/2026 [id number] / [id number] / N/A Description:Aortic Valve Daig Tamara/[employer] [id number] Angio-Seal Evolution 6fr .035in Guidewire Bypass Tube Suture - [id number] Implanted:Qty: 1 on 01/16/2021 by Hesham Beaulieu MD at [facility]IN [facility] 09/08/2021 [id number] / / [id number] Procedures Procedure Name Priority Date/Time Associated Diagnosis Comments PROTIME-INR Routine 10/26/2024 PROTIME-INR Routine 09/16/2024 DEXA AXIAL SKELETON BONE DENSITY 1 OR MORE SITES Schedule Routine, Read Routine (OP Routine) 09/08/2024 PROTIME-INR Routine 09/07/2024 DEVICE CHECK - REMOTE Routine 09/05/2024 6:34 AM STUDENT NURSE Complete heart block (HCC) Cardiac pacemaker in situ TRANSTHORACIC ECHO (TTE) COMPLETE W DOPPLER/CF WO CONTRAST Routine 08/23/2024 9:54 AM STUDENT NURSE Nonrheumatic aortic valve stenosis EGFR Routine 08/03/2024 11:57 AM STUDENT NURSE Hypertension associated with diabetes (HCC) HEMOGLOBIN A1C Routine 08/03/2024 11:57 AM STUDENT NURSE Class 1 obesity due to excess calories with serious comorbidity and body mass index (BMI) of 32.0 to 32.9 in adult LIPID PANEL Routine 08/03/2024 11:57 AM STUDENT NURSE Dyslipidemia associated with type 2 diabetes mellitus (HCC) Class 1 obesity due to excess calories with serious comorbidity and body mass index (BMI) of 32.0 to 32.9 in adult PAP, REFLEX HPV Routine 03/28/2024 10:54 AM CDT Well woman exam SCREENING MAMMOGRAM BILATERAL W WARREN Schedule Routine, Read Routine (OP Routine) 03/21/2024 10:00 AM CDT Screening mammogram, encounter for ALBUMIN CREATININE RATIO, URINE Routine 09/23/2023 10:46 AM CDT Type 2 diabetes mellitus with other diabetic kidney complication, with long-term current use of insulin (HCC) DIABETES EYE EXAM Routine 06/09/2023 8:17 AM STUDENT NURSE COLONOSCOPY 03/12/2023 7:28 AM CDT HEPATITIS C ANTIBODY Routine 06/06/2019 9:40 AM STUDENT NURSE Need for hepatitis C screening test DIABETES FOOT EXAM Routine 06/06/2019 from Last 3 Months or Most Recently Relevant to Health Maintenance Results * (ABNORMAL) Protime-INR (10/26/2024) INR 1.20(A) 1.50 - 2.50 EXTERNAL LAB Blood Result [facility] Historical Provider MD LAB BLOOD ORDERABLES Kathryn l Result Performing Organization Address City/[facility]/ZIP Co de Phone Number EXTERNAL LAB * (ABNORMAL) Protime-INR (09/16/2024) INR 1.70(A) 1.50 - 2.50 EXTERNAL LAB Blood Result [facility] Historical Provider MD LAB BLOOD ORDERABLES Kathryn l Result Performing Organization Address City/[facility]/ZIP Co de Phone Number EXTERNAL LAB * Dexa Axial Skeleton Bone Density 1 or 2 Site (09/08/2024) Anatomical Region Laterality Modality Body N/A Radiographic Kallie ging Result [facility] Generic External Data Provider IMG DXA PROCEDURE S Final Result * (ABNORMAL) Protime-INR (09/07/2024) INR 1.30(A) 1.50 - 2.50 EXTERNAL LAB Blood Result [facility] Historical Provider MD LAB BLOOD ORDERABLES Kathryn l Result EXTERNAL LAB * DEVICE CHECK - REMOTE (09/05/2024 6:34 AM STUDENT NURSE) Anatomical Region Laterality Modality Other Narrative 09/07/2024 8:22 AM STUDENT NURSE Images from the original result were not included. 09/05/2024 [facility] quarterly remote device check NOTE The following shows snippets from the complete quarterly report. The complete report in its entirety is attached to this Result Text in Supervisor Fusing Room. Presenting EGM Last in-office check 05/04/2022 Next in-office check-not scheduled ( No showed 04/17/2024 appt.) 06/12/2024 Per Denis regarding appt. Patient is hard to contact. She will try to keep contacting her to schedule an appointment. DC PPM, implanted 02/27/2021 with 5.4-6.2 yrs est remaining longevity Ap 64% Council Member < 1% No event/alert episodes recorded this monitoring quarter Reviewed By Francia Renteria SHEETER OPERATOR ATTESTATION I have reviewed the device interrogation report associated with this encounter in detail. I agree with the documentation recorded/scanned into the electronic medical record. Recommendations: Continue current device follow-up. Hesham Beaulieu MD us Hesham Beaulieu MD [facility] PROCEDURES Final Result * TRANSTHORACIC ECHO (TTE) COMPLETE W DOPPLER/CF WO CONTRAST (08/23/2024 9:54 AM STUDENT NURSE) LV EF % CONS SCIMAGE Anatomical Region Laterality Modality Ultrasound 08/23/2024 9:29 AM STUDENT NURSE Narrative 08/23/2024 10:43 AM STUDENT NURSE [address] [address] Echocardiogram Report Patient Name: BLANCA RIOS : 1960 Study Date: 08/23/2024 9:29:28 AM Gender: F Tech: OLY Location: Echo Lab 2 Ref Provider: ISAAK STRONG Height(Cm): BSA: Weight(Kg): Quality: Adequate Order Provider: ISAAK STRONG PROCEDURES: Echocardiographic Report: Transthoracic echocardiogram with complete 2D, M-Mode, and color Doppler examination. INDICATIONS: Nonrheumatic aortic valve stenosis I35.0 Nonrheumatic aortic (valve) stenosis. MEASUREMENTS: 2D/MM Value Range Doppler Value Range EF Teich MM 68.2 % [ 54.0 - 74.0 ] JONN Vmax 1.65 cm2 EF Mod BP 68 % [ 54 - 74 ] AV Mean PG 11 mmHg LVIDd MM 4.77 cm [ 3.80 - 5.20 ] AV Peak Fabricio 2.17 m/s [ 1.00 - 1.70 ] LVIDs MM 2.95 cm [ 2.20 - 3.50 ] AV VTI 47.50 cm LVPWd MM 1.16 cm [ 0.60 - 0.90 ] LVOT Diam 1.92 cm IVSd MM 0.98 cm [ 0.60 - 0.90 ] LVOT Peak Fabricio 1.24 m/s [ 0.70 - 1.10 ] LA Dimension MM 3.23 cm [ 2.70 - 3.80 ] LVOT VTI 27.47 cm AoR Diam MM 2.32 cm [ 2.70 - 3.70 ] MV E Peak Fabricio 0.80 m/s [ 0.60 - 1.30 ] MV A Peak Fabricio 0.95 m/s [ 1.00 - 1.20 ] MV Mean PG 2 mmHg MV PHT 54 msec [ 20 - 100 ] MVA 4.10 MV Decel Time 186 msec [ 104 - 258 ] PV Peak Fabricio 0.92 m/s [ 0.40 - 0.80 ] TR Peak Fabricio 2.58 m/s [ 1.00 - 2.80 ] TR Peak PG 27 mmHg RVSP 35.00 mmHg [ 10.00 - 36.00 ] E` 0.05 m/s E/E` 15.98 [ <= 10.00 ] PA Pressure 35.00 mmHg [ 10.00 - 36.00 ] 2D/MM Value Range Doppler Value Range - FINDINGS: Atrial Septum: Normal atrial septum. Left Ventricle: Normal left ventricular systolic function with no focal wall motion abnormalities. Normal left ventricular size. Mild concentric left ventricular hypertrophy. Impaired diastolic relaxation Grade I. Ejection fraction is measured at 68 %. Left Atrium: The left atrium is normal in size. Right Ventricle: Normal right ventricular size. Normal right ventricular systolic function. Linear artifact in right ventricle suggestive of catheter(s), pacemaker lead(s), or ICD lead(s). Right Atrium: The right atrium is normal in size. Linear artifact in right atrium suggestive of catheter(s), pacemaker lead(s), or ICD lead(s). Aortic Valve: No evidence of hemodynamically significant aortic stenosis by Doppler. Trace aortic valve regurgitation. Normal appearing aortic valve prosthesis. Normal appearing aortic valve bioprosthesis. Mitral Valve: Mitral valve leaflets appear mildly thickened. Mild mitral valve regurgitation. Pulmonic Valve: Normal structure of the pulmonic valve. Tricuspid Valve: Normal structure of the tricuspid valve. Normal right ventricular systolic pressure. Trivial regurgitation in the tricuspid valve. Pericardium: Normal pericardium with no significant pericardial effusion. Aorta: Descending aorta is normal. There is mild atherosclerosis in the aortic root. IVC: Normal size and normal respiratory collapse consistent with normal right atrial pressure (<5 mmHg). Pulmonary Artery: Pulmonary artery not well visualized. CONCLUSIONS: Normal left ventricular systolic function with no focal wall motion abnormalities. Normal left ventricular size. Mild concentric left ventricular hypertrophy. Impaired diastolic relaxation Grade I. Ejection fraction is measured at 68 %. Normal right ventricular size. Normal right ventricular systolic function. Linear artifact in right ventricle suggestive of catheter(s), pacemaker lead(s), or ICD lead(s). Mitral valve leaflets appear mildly thickened. Mild mitral valve regurgitation. No evidence of hemodynamically significant aortic stenosis by Doppler. Trace aortic valve regurgitation. Normal appearing aortic valve prosthesis. Normal appearing aortic valve bioprosthesis. Normal structure of the tricuspid valve. Normal right ventricular systolic pressure. Trivial regurgitation in the tricuspid valve. Normal pericardium with no significant pericardial effusion. Technically difficult study with suboptimal visualization with limited subcostal views. Valves in general are poorly visualized. Electronically Signed By: Tanisha Chatterjee MD 08/23/2024 10:42:14 AM STUDENT NURSE Procedure Note Tanisha Chatterjee MD - 08/23/[address] [place] [address] Echocardiogram Report Patient Name: BLANCA RIOS : 1960 Study Date: 08/23/2024 9:29:28 AM Gender: F Tech: OLY Location: Echo Lab 2 Ref Provider: ISAAK STRONG Height(Cm): BSA: Weight(Kg): Quality: Adequate Order Provider: ISAAK STRONG PROCEDURES: Echocardiographic Report: Transthoracic echocardiogram with complete 2D, M-Mode, and color Dopplerexamination. INDICATIONS: Nonrheumatic aortic valve stenosis I35.0 Nonrheumatic aortic (valve) stenosis. MEASUREMENTS: 2D/MM Value Range Doppler ValueRange EF Teich MM 68.2 % [ 54.0 - 74.0 ] JONN Vmax 1.65cm2 EF Mod BP 68 % [ 54 - 74 ] AV Mean PG 11mmHg LVIDd MM 4.77 cm [ 3.80 - 5.20 ] AV Peak Fabricio 2.17 m/s[ 1.00 - 1.70 ] LVIDs MM 2.95 cm [ 2.20 - 3.50 ] AV VTI 47.50cm LVPWd MM 1.16 cm [ 0.60 - 0.90 ] LVOT Diam 1.92cm IVSd MM 0.98 cm [ 0.60 - 0.90 ] LVOT Peak Fabricio 1.24 m/s[ 0.70 - 1.10 ] LA Dimension MM 3.23 cm [ 2.70 - 3.80 ] LVOT VTI 27.47cm AoR Diam MM 2.32 cm [ 2.70 - 3.70 ] MV E Peak Fabricio 0.80 m/s[ 0.60 - 1.30 ] MV A Peak Fabricio 0.95 m/s [ 1.00 - 1.20 ] MV Mean PG 2 mmHg MV PHT 54 msec [ 20 - 100 ] MVA 4.10 MV Decel Time 186 msec [ 104 - 258 ] PV Peak Fabricio 0.92 m/s [ 0.40 - 0.80 ] TR Peak Fabricio 2.58 m/s [ 1.00 - 2.80 ] TR Peak PG 27 mmHg RVSP 35.00 mmHg [ 10.00 - 36.00 ] E` 0.05 m/s E/E` 15.98 [ <= 10.00 ] PA Pressure 35.00 mmHg [ 10.00 - 36.00 ] 2D/MM Value Range Doppler ValueRange - FINDINGS: Atrial Septum: Normal atrial septum. Left Ventricle: Normal left ventricular systolic function with no focal wall motionabnormalities. Normal left ventricular size. Mild concentric left ventricular hypertrophy.Impaired diastolic relaxation Grade I. Ejection fraction is measured at 68 %. Left Atrium: The left atrium is normal in size. Right Ventricle: Normal right ventricular size. Normal right ventricular systolic function.Linear artifact in right ventricle suggestive of catheter(s), pacemaker lead(s),or ICD lead(s). Right Atrium: The right atrium is normal in size. Linear artifact in right atriumsuggestive of catheter(s), pacemaker lead(s), or ICD lead(s). Aortic Valve: No evidence of hemodynamically significant aortic stenosis by Doppler.Trace aortic valve regurgitation. Normal appearing aortic valve prosthesis. Normal appearingaortic valve bioprosthesis. Mitral Valve: Mitral valve leaflets appear mildly thickened. Mild mitral valveregurgitation. Pulmonic Valve: Normal structure of the pulmonic valve. Tricuspid Valve: Normal structure of the tricuspid valve. Normal right ventricular systolicpressure. Trivial regurgitation in the tricuspid valve. Pericardium: Normal pericardium with no significant pericardial effusion. Aorta: Descending aorta is normal. There is mild atherosclerosis in the aorticroot. IVC: Normal size and normal respiratory collapse consistent with normal rightatrial pressure (<5 mmHg). Pulmonary Artery: Pulmonary artery not well visualized. CONCLUSIONS: Normal left ventricular systolic function with no focal wall motionabnormalities. Normal left ventricular size. Mild concentric left ventricular hypertrophy.Impaired diastolic relaxation Grade I. Ejection fraction is measured at 68 %. Normal right ventricular size. Normal right ventricular systolic function.Linear artifact in right ventricle suggestive of catheter(s), pacemaker lead(s),or ICD lead(s). Mitral valve leaflets appear mildly thickened. Mild mitral valveregurgitation. No evidence of hemodynamically significant aortic stenosis by Doppler.Trace aortic valve regurgitation. Normal appearing aortic valve prosthesis. Normal appearingaortic valve bioprosthesis. Normal structure of the tricuspid valve. Normal right ventricular systolicpressure. Trivial regurgitation in the tricuspid valve. Normal pericardium with no significant pericardial effusion. Technically difficult study with suboptimal visualization with limitedsubcostal views. Valves in general are poorly visualized. Electronically Signed By: Tanisha Chatterjee MD 08/23/2024 10:42:14 AM STUDENT NURSE us Isaak Strong MD CV ECHO PROCEDURES Final Res ult * (ABNORMAL) eGFR (08/03/2024 11:57 AM STUDENT NURSE) eGFR 58(L) >=60 mL/min/1. 73 m2 Comment: Interpretive Data Reference Interval Normal >/= 90 mL/min/1.73m2 Mildly decreased* 60 - 89 mL/min/1.73m2 Mildly to moderately decreased 45 - 59 mL/min/1.73m2 Moderately to severely decreased 30 - 44 mL/min/1.73m2 Severely decreased 15 - 29 mL/min/1.73m2 Kidney Failure < 15 mL/min/1.73m2 *Relative to young adult level Estimated glomerular filtration rate is determined by the 2020 CKD-EPI equation recommended by the National Kidney Foundation (A Unifying Approach to GFR Estimation: Recommendations of the NKF-ASK Task Force on Reassessing the Inclusion of Race in Diagnosing Kidney Disease, JASN 2020). The CKD-EPI equation should not be used for patients with unstable renal function and has not been validated in children and those over 70. Current interpretive data was last reviewed 2021. Blood 08/03/2024 11:5 7 AM STUDENT NURSE 08/03/2024 9:52 PM STUDENT NURSE us Hector Hall MD LAB BLOOD ORDERABLES Fi nal Result [facility] [address] [facility] [place] [address] * (ABNORMAL) Hemoglobin A1c (08/03/2024 11:57 AM STUDENT NURSE) Hgb A1C 8.6(H) 4.0 - 5.6 % Estimated Average Glucose 200 mg/dL [facility] Comment: The ADA recommends reporting an estimated Average Glucose (eAG) with all Hemoglobin A1c results using the equation derived from a study of 507 normal and diabetic adults. Minority populations were underrepresented and children were not included. (Diabetes Care 31:9517-6293, 2008). The eAG is not equivalent to a fasting glucose. Blood 08/03/2024 11:5 7 AM STUDENT NURSE 08/03/2024 9:22 PM STUDENT NURSE Hector Hall MD LAB BLOOD ORDERABLES Fi nal Result Performing Organization Address City/State/[facility] Co de Phone Number [facility] Department [place] [address] * (ABNORMAL) Lipid panel (08/03/2024 11:57 AM STUDENT NURSE) Cholesterol 120 30 - 199 mg/dL Comment: Interpretive Data Ages < or = 19 years Acceptable: <170 mg/dL Borderline high: 170-199 mg/dL High: >or= 200 mg/dL Ages > or = 20 years Desirable: <200 mg/dL Borderline high: 200-239 mg/dL High: >or= 240 mg/dL Literature References: 1. Expert Panel on Integrated Guidelines for Cardiovascular Health and Risk Reduction in Children and Adolescents. Pediatrics 2011;128:S213 2. NCEP Expert Panel. Circulation 2004;110:227 Current Interpretive Data was last revised on 2018. Triglycerides 191(H) <=149 mg/dL [facility] Comment: Interpretive Data Ages < or = 9 years Acceptable: <75 mg/dL Borderline high: 75-99 mg/dL High: >or= 100 mg/dL Ages 10 to 20 years Acceptable: <90 mg/dL Borderline high: 90-129 mg/dL High: >or= 130 mg/dL Ages > or = 20 years Desirable: <150 mg/dL Borderline high: 150-199 mg/dL High: 200-499 mg/dL Very high: >or= 499 mg/dL Literature References: 1. Expert Panel on Integrated Guidelines for Cardiovascular Health and Risk Reduction in Children and Adolescents. Pediatrics 2011;128:S213 2. NCEP Expert Panel. Circulation 2004;110:227 Current Interpretive Data was last revised on 2018. HDL 38(L) >=40 mg/dL [facility] Comment: Interpretive Data Ages < or = 19 years Acceptable: >45 mg/dL Borderline low: 40-45 mg/dL Low: <40 mg/dL Ages > or = 20 years Desirable: >or= 60 mg/dL Low: <40 mg/dL Literature References: 1. Expert Panel on Integrated Guidelines for Cardiovascular Health and Risk Reduction in Children and Adolescents. Pediatrics 2011;128:S213 2. NCEP Expert Panel. Circulation 2004;110:227 Current Interpretive Data was last revised on 2018. LDL, calculated 51 <=129 mg/dL [facility] Comment: Interpretive Data Ages < or = 19 years Acceptable: <110 mg/dL Borderline high: 110-129 mg/dL High: >or= 130 mg/dL Ages > or = 20 years Optimal: <100 mg/dL Near optimal: 100-129 mg/dL Borderline high: 130-159 mg/dL High: >160 mg/dL Calculated using the Matthieu LDL-C estimating equation. This equation was implemented on 2024. Prior to this date LDL-C was estimated using the Friedewald equation. Literature References: 1. Expert Panel on Integrated Guidelines for Cardiovascular Health and Risk Reduction in Children and Adolescents. Pediatrics 2011;128:S213 2. NCEP Expert Panel. Circulation 2004;110:227 3. Matthieu Ramirez al. HARSHA Cardiol. 2020 November 09;5(5):540-548. doi: [email or web address] Current Interpretive Data was last revised on 2024. Non-HDL Cholesterol 82 mg/dL [facility] Comment: Interpretive Data Ages < or = 19 years Acceptable: <120 mg/dL Borderline high: 120-144 mg/dL High: >145 mg/dL Ages > or = 20 years When triglycerides are >200 mg/dL, Non-HDL cholesterol is a secondary target of therapy with treatment goals that are 30 mg/dL greater than the LDL cholesterol target. Literature References: 1. Expert Panel on Integrated Guidelines for Cardiovascular Health and Risk Reduction in Children and Adolescents. Pediatrics 2011;128:S213 2. NCEP Expert Panel. Circulation 2004;110:227 Current Interpretive Data was last revised on 2018. Chol/HDL ratio 3 [facility] Blood 08/03/2024 11:5 7 AM STUDENT NURSE 08/03/2024 9:22 PM STUDENT NURSE Narrative SKIP - 08/03/2024 10:35 PM STUDENT NURSE Has the patient been fasting for 8 hours or more?->No us Hector Hall MD LAB BLOOD ORDERABLES Fi nal Result SKIP [id number] Department [place] [address] * Pap, reflex HPV (03/28/2024 10:54 AM CDT) Clinical indication Comment [facility] - 01 Comment: NEGATIVE FOR INTRAEPITHELIAL LESION OR MALIGNANCY. CELLULAR CHANGES ASSOCIATED WITH ATROPHY ARE PRESENT. THIS SPECIMEN WAS RESCREENED PART OF OUR ELECTRIC POWER MACHINE OPERATOR PROGRAM. Specimen adequacy: Comment [facility] - 01 Comment: Satisfactory for evaluation. Endocervical component may not be distinguished in cases of atrophy. Clinician provided ICD10 Comment [facility] - 01 Comment:Z01.419 Performed by Comment [facility] - 01 Comment:Kaamla Mcarthur, Cyto technologist (ASCP) QC reviewed by Comment [facility] - 01 Comment:Shanika Long, Cyto technologist . . [facility] - 01 Note: Comment [facility] - 01 Comment: The Pap smear is a screening test designed to aid in the detection of premalignant and malignant conditions of the uterine cervix. It is not a diagnostic procedure and should not be used as the sole means of detecting cervical cancer. Both false-positive and false-negative reports do occur. Test methodology Comment [facility] - 01 Comment: This liquid based ThinPrep(R) pap test was screened with the use of an image guided system. . Comment [facility] - 01 Comment: The HPV DNA reflex criteria were not met with this specimen result therefore, no HPV testing was performed. Thin prep 03/28/2024 10:5 4 AM CDT 03/28/2024 Narrative [facility] - 04/03/2024 12:09 PM CDT Performed at: [address] [place] [address] [place] [id number] Engineer Booster And Exhauster: Kera Davis MD, Phone: [phone] Specimen Comment: [id number] Specimen Comment: No. of containers..01 ThinPrep Vial Lauren Rodriguez NP LAB CYTOLOGY ORDERABLES Final Re sult [facility] - 01 * Screening Mammogram Bilateral W [place] (03/21/2024 10:00 AM CDT) Anatomical Region Laterality Modality Breast Bilateral Mammography 03/21/2024 10:2 7 AM CDT Impressions 03/21/2024 10:27 AM CDT There is no mammographic evidence of malignancy. A 1 year screening mammogram is recommended. BI-RADS: 1 - Negative. The patient has been or will be contacted. The patient will be entered into a reminder system with a target due date of 1 year for her next mammogram. Electronically signed by: ROSEMARY Roman 03/21/2024 10:27 AM CDT EXAMINATION: SCREENING MAMMOGRAM BILATERAL W WARREN ORDERING HEALTHCARE PROVIDER: SELF SCREENING MAMMOGRAM HISTORY: Routine screening mammography. COMPARISON: 12/26/2022, 12/16/2021, 08/21/2020, 06/16/2019. TECHNIQUE: CC and MLO views of both breasts were obtained with digital technique using digital breast tomosynthesis with C view. Computer aided detection was utilized. FINDINGS: DENSITY: The breasts are almost entirely fatty. BREASTS: There is no new suspicious finding in either breast on mammogram. us Self Screening Mammogram IMG MAMMO PROCEDURES Fi nal Result * Albumin Creatinine Ratio, Urine (09/23/2023 10:46 AM CDT) Albumin Ur <12.0 mg/L Comment: Interpretive Data No reference range established. Current interpretive data was last revised 2018. Creatinine Ur 23.5 mg/dL [facility] Comment: Interpretive Data No reference range established. Current interpretive data was last revised 2018. Albumin Creatinine Ratio, Ur See Comment - [facility] Comment:Unable to calculate Urine 09/23/2023 10:4 6 AM CDT 09/23/2023 9:27 PM CDT Hector Hall MD LAB URINE ORDERABLES Fi nal Result [facility] Department [place] [address] * HM DIABETES EYE EXAM (06/09/2023 8:17 AM STUDENT NURSE) Historical Provider HEALTH MAINTENANCE Edited Result - Final * COLONOSCOPY (03/12/2023 7:28 AM CDT) Anatomical Region Laterality Modality Other Narrative Procedure Note Lis Jimenez MD - 03/12/2023 7:28 AM CDT [facility] Patient Name: Blanca Rios Procedure Date: 03/12/2023 7:28 AM Date of : 1960 Admit Type: Outpatient Age: 62 Gender: Female Attending MD: Lis Jimenez M.D. Room: [facility] ENDOSCOPY ROOM 1 Note Status: Finalized Patient Profile: This is a 62 year old female. No family history of colon cancer. She had polyps 10 years ago. Hermother had colon polyps. Procedure: Colonoscopy Indications: [facility]: Family history of 1st-degree relative with colon polyps, High risk colon cancer surveillance:Personal history of colonic polyps, Last colonoscopy 10years ago Referring MD: Hector Hall M.D. Providers: Lis Jimenez M.D. Impression: - One 10 mm polyp in the proximal ascending colon, removed with a cold snare. Resected and retrieved. Clips (MR conditional) were placed. Clipmanufacturer: [employer]. - One 14 mm polyp in the proximal rectum, removedwith a hot snare. Resected and retrieved. Clip (MR conditional) was placed. 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 - Internal hemorrhoids. Recommendation: - Await pathology results. - Repeat colonoscopy in 4 years for surveillance. - Continue present medications. - Resume Coumadin tonight and take 5 mg for thenext 3 days, check INR on Wednesday03/15/2023 then follow recommendations through your Coumadin clinic. - Use Lovenox injections starting tonight twicedaily for the next 4 days subcutaneously. Medicines: Monitored Anesthesia Care Complications: No immediate complications. Estimated Blood Loss: Estimated blood loss: none. Procedure: Pre-Anesthesia Assessment: - Prior to the procedure, a History and Physicalwas performed, and patient medications and allergieswere reviewed. The patient's tolerance of previous anesthesia was also reviewed. The risks andbenefits of the procedure and the sedation options and risks were discussed with the patient. All questions were answered, and informed consent was obtained. Prior Anticoagulants: The patient has taken Coumadin (warfarin), last dose was 5 days prior toprocedure. ASA Grade Assessment: III - A patient with severe systemic disease. After reviewing the risks and benefits, the patient was deemed in satisfactory condition to undergo the procedure. The benefits, risks and alternatives of theprocedure and sedation were discussed and informed consentwas obtained. All questions were answered. Please referto the signed informed consent document in the medical record. The bowel preparation used was Miralax and bisacodyl tablets via split dose instruction. The scope was passed under direct vision. The Pediatric Colonoscope PCF-H190L [id number] was introducedthrough the anus and advanced to the the cecum, identifiedby appendiceal orifice and ileocecal valve. Thequality of the bowel preparation was good. Bowel prep was administered using a split dose. Findings: The perianal and digital rectal examinations were normal. The cecum appeared normal. A 10 mm polyp was found in the proximal ascending colon. The polypwas sessile. The polyp was removed with a cold snare. Resection and retrieval were complete. To prevent bleeding after the polypectomy,two hemostatic clips were successfully placed (MR conditional). Clip assault amphibious vehicle crewman: [employer]. There was no bleeding at the end ofthe procedure. The sigmoid colon, descending colon and transverse colon appearednormal. A 14 mm polyp was found in the proximal rectum. The polyp was pedunculated. The polyp was removed with a hot snare. Resection and retrieval were complete. To prevent bleeding after the polypectomy,one hemostatic clip was successfully placed (MR conditional). Clip assault amphibious vehicle crewman: [employer]. There was no bleeding at the end ofthe procedure. Internal hemorrhoids were found during retroflexion. The hemorrhoids were small. Electronically signed by Lis Jimenez M.D. Lis Jimenez M.D. 03/12/2023 9:32:07 AM Number of Addenda: 0 Note Initiated On: 03/12/2023 7:28 AM Procedure Code(s): --- Professional --- 77633, Colonoscopy, flexible; with removal of tumor(s), polyp(s), or other lesion(s) by snare technique Diagnosis Code(s): --- Professional --- Z83.71, Family history of colonic polyps Z86.010, Personal history of colonic polyps K64.8, Other hemorrhoids D12.2, Benign neoplasm of ascending colon D12.8, Benign neoplasm of rectum CPT copyright 2020 [employer]. All rights reserved. The codes documented in this report are preliminary and upon solution design and analysis manager reviewmay be revised to meet current compliance requirements. Recognized by the [employer] for promoting quality in endoscopy Lis Jimenez MD ENDOSCOPY PROCEDURES Final Result * Hepatitis C antibody (06/06/2019 9:40 AM STUDENT NURSE) Hep C Ab NON-REACT YENNY NON-REACT YENNY [facility] SIGNAL TO CUT-OFF 0.00 <1.00 [facility] [place] Comment: HCV antibody was non-reactive. There is no laboratory evidence of HCV infection. In most cases, no further action is required. However, if recent HCV exposure is suspected, a test for HCV RNA (test code 60223) is suggested. For additional information please refer to http://education.[employer]/faq/GKT67k2 (This link is being provided for informational/ educational purposes only.) Blood specimen (specimen) 06/06/2019 9:40 AM STUDENT NURSE 06/07/2019 5:24 AM STUDENT NURSE Narrative Resulting Agency Comment Performing Organization Information: Site ID: [id number] Name: [facility] Address: [address] [place] [address] [place] [address] Director: Mateo Chapman D.O., MPH Deshawn Bueno MD LAB MICROBIOLOGY - GENERAL ORDERABLES Final Result [facility] [place] * DIABETES FOOT EXAM (06/06/2019) Pathologist [facility] Diabetic Foot Exam Normal Historical Provider HEALTH MAINTENANCE Final Result from Last 3 Months or Most Recently Relevant to Health Maintenance Insurance [facility] MEDICARE [employer] [facility] Advance Directives For more information, please contact: [phone] * Full Code (Latest Code Status on File) Date Activated Date Inactivated Comments 03/12/2023 7:31 AM 03/12/2023 2:16 PM * Full Code Date Activated Date Inactivated Comments 03/12/2023 7:31 AM 03/12/2023 7:31 AM * Full Code Date Activated Date Inactivated Comments 02/24/2021 1:45 PM 03/04/2021 8:30 PM * Full Code Date Activated Date Inactivated Comments 01/16/2021 1:03 PM 01/16/2021 8:07 PM Care Teams Account Executive Software Sales Relationship Specialty Start Date End Date Hector Hall MD PCP - General Family Medicine 10/18/20 Hesham Beaulieu MD Consulting Physician Cardiology 10/18/20 Avery Olvera MD Referring Physician Gastroenterology 10/18/20 Chandler Monroy MD [address] [facility] [address] [place] [address] Referring Physician Endocrinology Diabetes & Metabolism 10/18/20 [place] [address] [address] [place] [address] Surgeon Cardiothoracic Surgery 03/04/21 [place] [address] [address] [place] [address] Consulting Physician Nephrology 09/23/23
--- OUTSIDE RECORDS SUMMARY | 2024-11-16 07:50 | XMS_ITS | Referral Summary ---
Author Organization [facility] Address [address] [place] [address] Phone Care Team Providers Care Poultry Inspector Name Role Phone Hector Hall MD Primary Care Provider Hesham Beaulieu MD Unavailable [phone] Avery Olvera MD Unavailable [phone] Chandler Monroy MD Unavailable Isaak Strong MD Unavailable Hiram Rodriguez MD Unavailable [phone] Encounters Date Type Department Care Team Description 10/26/2024 Anticoagulation Visit [facility] at [address] [place] [phone] Denis Mullen MA 10/26/2024 Telephone [facility] at [address] [place] [address] Denis Mullen MA 10/13/2024 8:59 AM CDT - 10/13/2024 11:59 PM CDT Hospital Encounter [facility] Nutrition and Diabetic Education 1 [facility] [address] [place] [address] Radha Garnica, RN Type 2 diabetes mellitus with other diabetic kidney complication, with long-term current use of insulin (HCC) Discharge Disposition: Discharge to home or self care 09/21/2024 10:30 AM CDT Office Visit [facility] Diabetes Endocrine Care at [address] [place] [phone] Sofya Garcia, Type 2 diabetes mellitus with other diabetic kidney complication, with long-term current use of insulin (HCC) (Primary Dx); Dyslipidemia associated with type 2 diabetes mellitus (HCC); Hypertension associated with diabetes (HCC) 09/20/2024 Telephone [facility] at [address] [place] [address] Denis Mullen MA 09/20/2024 Anticoagulation Visit [facility] at [address] [place] [address] Denis Mullen MA 09/19/2024 11:15 AM CDT Office Visit [facility] Surgery [address] [facility] [address] [place] [address] Rosalba Gonzalez NP Bicuspid aortic valve (Primary Dx) 09/08/2024 Telephone [facility] at [address] [place] [address] Dneis Mullen MA 09/08/2024 Anticoagulation Visit [facility] at [address] [address] Denis Mullen MA 09/07/2024 Orders Only [facility] Primary Care at [address] [address] Hector Hall MD Postmenopausal (Primary Dx) 09/07/2024 Telephone [facility] Primary Care at [address] [place] [address] Hector Hall MD Medical Question/Miscellaneo us 09/05/2024 8:30 AM CAUL PULLER Ancillary Procedure [facility] [address] [facility] [address] [place] [address] Complete heart block (HCC); Cardiac pacemaker in situ 08/23/2024 8:51 AM CAUL PULLER - 08/23/2024 11:59 PM CAUL PULLER Hospital Encounter [facility] Cardiology [address] [place] [address] Nonrheumatic aortic valve stenosis Discharge Disposition: Discharge to home or self care from Last 3 Months Allergies Active Allergy Reactions Criticality Noted Date [...] disease, with long-term current use of insulin ([facility]) Take 2 tablets (1,000 mg total) by mouth 2 (two) times a day before breakfast and dinner 360 tablet 3 02/21/20 24 2024 Active BD Ultra-Fine Short Pen Needle 31 gauge x 5/16 needleIndicatio ns:Type 2 diabetes mellitus with other diabetic kidney complication, with long-term current use of insulin ([facility]) 4 X DAILY 100 each 3 04/18/20 24 Active insulin lispro (HumaLOG, ADMELOG) 100 unit/mL pen for injection 15 units 3 times daily with meals 75 mL 1 04/21/20 24 Active insulin glargine (TOUJEO) 300 unit/mL (1.5 mL) pen for injectionIndica tions:Type 2 diabetes mellitus with other diabetic kidney complication, with long-term current use of insulin ([facility]) INJECT 50 UNITS UNDER THE SKIN EVERY DAY 4.5 mL 3 05/01/20 24 Active flash glucose scanning reader misc 1 Device continuously To read freestyle lily 3 sensor. E11.65 1 each 1 06/19/20 24 Active flash glucose sensor (FreeStyle Lily 2 Sensor) kitIndications: Type 2 diabetes mellitus with stage 3a chronic kidney disease, with long-term current use of insulin ([facility]) Change sensor every 14 days 6 kit [...] long-term current use of insulin (HCC) Take one tablet daily. 90 tablet 2 [...] complication Assessment & Plan (08/03/2024 11:41 AM CAUL PULLER): - hx of asthma - used to be on advair and xopenex - been off inhaler for 7-8 years - recently had bronchitis which caused an issue - refill Xopenex only for use as needed Rosacea 08/03/2024 Assessment & Plan (08/03/2024 11:42 AM CAUL PULLER): - chronic condition, worse - used to be on Metrogel but not anymore, new prescription sent Greater trochanteric bursitis of left hip 2024 Assessment & Plan (08/03/2024 11:51 AM CAUL PULLER): - the right trochanteric bursitis injection in [...] provider - aware of the risks of assisted Reglan use Assessment & Plan (09/23/2023 10:37 [...] nephrology Assessment & Plan (08/03/2024 11:39 AM CAUL PULLER): - chronic condition, stable - established with [...] retrieved. Clips (MR conditional) were placed. 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 - One 14 mm polyp in the proximal rectum, removed with a hot snare. Resected and retrieved. Clip (MR conditional) was placed. 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 - Internal hemorrhoids. Recommendation: - Await pathology [...] dislocation. Assessment & Plan (09/18/2022 9:42 AM CAUL PULLER): - new, discussed etiology and management options [...] 03/11/2021 Assessment & Plan (05/26/2021 2:33 PM CAUL PULLER): - subacute, stable condiiton - S/p Insertion of dual-chamber pacemaker with insertion of atrial and ventricular lead and pacemaker generator all from [employer] by Dr. 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 Strong 02/27/2021. 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 Strong 02/24/2021 - doing well, follow with Cardiology and CT surgery regularly - has an echo set up to be done soon Assessment & Plan (05/26/2021 2:34 PM CAUL PULLER): - S/p Aortic valve replacement using #19 [...] long-term follow-up. Follows with Gastroenterology/hepatology at [facility] 07/2022 - scanned media Overview: Stage 2 [...] no focal lesions, gallstones 02/04/23 [place] (study, [place]): mild steatosis, no nodularity, no focal lesions, no sludge or gallstones Assessment & Plan (12/30/2023 11:25 AM CDT): - chronic, followed by GI - Dr. Olvera - currently on vitamin E supplementation - she is in a study for this for many years, double blind study from [facility] - has been told she has dropped from Stage 3 --> Stage 1.5-2 - gets extensive blood work regularly - currently on statin therapy which was increased from 20 mg to 40 mg daily by GI provider Assessment & Plan (05/26/2021 2:21 PM CAUL PULLER): - chronic, unknown control - currently on vitamin E supplementation - she is in a study for this for many years, double blind study from [facility] - has been told she has dropped [...] 02/02/2017 Assessment & Plan (08/03/2024 11:37 AM CAUL PULLER): Wt Readings from Last 3 Encounters: 08/03/24 [...] dyslipidemia Assessment & Plan (09/18/2022 9:20 AM CAUL PULLER): Wt Readings from Last 3 Encounters: 09/18/22 [...] 25 units. DM eye exam 04/2023 at [facility]. Letter sent to get copy [...] PCP --> plans to establish with Dr. Littlejohn next month - currently on insulin PUMP, and also Metformin [id number] BID and Januvia 100 mg daily, Jardiance [...] Diabetes Complications History of macrovascular disease (CVA, [place], PVD) is not Present. Complications secondary to [...] Diabetes Complications History of macrovascular disease (CVA, [place], PVD) is not Present. Complications secondary to [...] Diabetes Complications History of macrovascular disease (CVA, [place], PVD) is not Present. Complications secondary to Diabetes - none Taking baby aspirin daily: No Smoking status: non-smoker Immunizations Assessment & Plan (05/26/2021 2:20 PM CAUL PULLER): - chronic condition, not at goal - [...] Diabetes Complications History of macrovascular disease (CVA, MO, PVD) is not Present. Complications secondary to [...] Diabetes Complications History of macrovascular disease (CVA, [place], PVD) is not Present. Complications secondary to [...] NOV. 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 At this point I will refer Dr. Pink at [facility] as she states her vmware consultant at [facility] is likely retiring in the next year [...] the 9 range, she does see an vmware consultant however I am concerned that she has [...] continues to follow Dr. elpidio Yu at [facility] he has adjusted her Lantus Assessment & Plan (09/24/2017 10:50 AM CDT): Follows with Dr. Elpidio Yu at [facility] she is concerned about her blood sugars being worse . We will check an A1c today I will add xutolphy to her regimen at 15 U. 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 Last lipid panel: 09/13/23 LDL=46, IQ=408. Assessment & Plan (12/30/2023 11:15 AM CDT): [...] therapy Assessment & Plan (05/26/2021 2:23 PM CAUL PULLER): - chronic, stable - has been on [...] months Assessment & Plan (06/08/2017 9:54 AM CAUL PULLER): As per her vmware consultant Assessment & Plan (02/02/2017 10:13 AM CDT): [...] 09/18/202203/12 Assessment & Plan (09/18/2022 9:41 AM CAUL PULLER): - was not able to do Colonoscopy, lost transportation - discussed cologuard, wants to check with her insurance about coverage - let me know Bilateral hip pain 09/18/2022 Assessment & Plan (09/18/2022 9:43 AM CAUL PULLER): - new, states has been going on [...] placed. Assessment & Plan (06/06/2019 8:50 AM CAUL PULLER): Patient here to today for physical exam. The patient was evaluated and all health maintenance objectives were discussed and addressed. Palpitation 02/02/2017 09/23/2023 Assessment & Plan (04/08/2018 9:00 AM CDT): No current complaints Assessment & Plan (06/08/2017 9:54 AM CAUL PULLER): Again no issues currently Assessment & Plan (02/02/2017 10:21 AM CDT): Will defer to Dr BEAULIEU, has had holter Viral upper respiratory tract infection 08/28/2016 03/22/2020 Overview (10/16/2016): Viral upper respiratory tract infection Assessment & Plan (02/02/2017 10:20 AM CDT): No sx currently Asthma 02/06/2016 10/08/2021 Low back pain 05/01/2015 10/18/2020 Overview (10/15/2016): Right-sided low back pain without sciatica Assessment & Plan (09/24/2017 10:49 AM CDT): She is not complaining of back pain today Assessment & Plan (06/08/2017 9:54 AM CAUL PULLER): States she is not having any current [...] 09/13/2023 Assessment & Plan (05/26/2021 2:14 PM CAUL PULLER): - chronic condition, stable - used to be on Methimazole but recently removed due to normal thyroid gland function - follows with endocrinology - most recent TSH as shown below Lab Results Component Value Date TSH 0.69 05/15/2021 GERD (gastroesophageal reflux disease) 10/22/2009 08/03/2024 Immunizations Immunization Administration Dates Next Due Flucelvax [...] PPV23 05/12/2024,07/2006 Td, adsorbed 07/12/2004 Tdap 06/06/2019 Social History Tobacco Use Types Packs/Day Years [...] declined 02/25/2021 How often do you attend [facility] or pentecostal services? Patient declined 02/25/2021 Do you belong to any clubs o r organizations such as voodoo groups, unions, fraternal or athletic groups, or [...] staff should administer the PHQ-9) 0 02/02/2024 [facility]at [facility] - Occupational Stress Questionnaire Answer Date Recorded [...] place to sleep or slept in a residential (including now)? No 02/25/2021 Personal Safety Answer Date Recorded Have you ever been in or are you currently in a harmful physical or emotional relationship or is someone making you feel afraid or unsafe? Denies 03/12/2023 Comments No Sex and Gender Information Value Date Recorded Sex Assigned at Not on file Legal Sex Female 10:04 AM CAUL PULLER Gender Identity Not on file Sexual Orientation Not on file Last Filed Vital Signs Vital Sign Reading Time Taken Comments Blood Pressure 118/68 09/21/2024 10:28 AM CDT Pulse 80 09/21/2024 10:28 AM CDT Temperature 36.8 C (98.2 F) 08/03/2024 11:15 AM CAUL PULLER Respiratory Rate 16 09/19/2024 11:22 AM CDT Oxygen Saturation 97% 09/19/2024 11:22 AM CDT Inhaled Oxygen Concentration - - Weight 75.8 kg (167 lb 3.2 oz) 09/21/2024 10:28 AM CDT Height 152.4 cm (5') 09/21/2024 10:28 AM CDT Body Mass Index 32.65 09/21/2024 10:28 AM CDT Plan of Treatment Not on file Interventions Community Resource Recommendations Community Resource Services Recommended Domains Addressed Status Status Reason/Outcome Date/Time Behavioral Health Response Mental Health Services SDOH Stress 02/25/2021 5:04 PM CDT Medical Devices Implanted Type Area Slip Mixer Device Identifier Shelf Expiration Date Model / Serial / Lot [employer] 2088tc/52 Tendril Sts 6fr 52cm Is-1 Connector Active Fixation Bipolar Soft - [id number] - [id number] Implanted:Qty: 1 on 02/27/2021 by Isaak Strong MD at [facility] Lead Left: Chest [employer] [id number] 12/10/2023 2088TC/5 2 / [id number] / [employer] 8tc/46 Tendril Sts 6fr 46cm Is-1 Connector Bipolar Active Fixation - [id number] - [id number] Implanted:Qty: 1 on 02/27/2021 by Isaak Strong MD at [facility] Lead Left: Chest [employer] [id number] 04/10/2023 2088TC/4 6 / [id number] / [employer] [id number] Assurity Mri [id number] 2 Chamber Is-1 Connector Thk6mm Pacemaker - [id number] - [id number] Implanted:Qty: 1 on 02/27/2021 by Isaak Strong MD at [facility] Pacemaker Left: Chest [employer] [id number] 08/11/2022 [id number] / [id number] / Valve Aortic On-X Carbon Ptfe 19 Cylindrical H13.3 Mm H10.8 Mm Od19 Mm Odsec27 Mm Id17.4 Mm Mechanical Sewing Ring Extend Chaidez Nonsterile - [id number] - [id number] Implanted:Qty: 1 on 02/24/2021 by Isaak Strong MD at [facility] Prosthetic Valve N/A: Heart On-X Intrnl 10/03/2026 [id number] / [id number] / N/A Description:Aortic Valve Daig Tamara/[employer] [id number] Angio-Seal Evolution 6fr .035in Guidewire Bypass Tube Suture - [id number] Implanted:Qty: 1 on 01/16/2021 by Hesham Beaulieu MD at [facility] [email or web address] 09/08/2021 [id number] / / [id number] Procedures Procedure Name Priority Date/Time Associated Diagnosis Comments PROTIME-INR Routine 10/26/2024 PROTIME-INR Routine 09/16/2024 DEXA AXIAL SKELETON BONE DENSITY 1 OR MORE SITES Schedule Routine, Read Routine (OP Routine) 09/08/2024 PROTIME-INR Routine 09/07/2024 DEVICE CHECK - REMOTE Routine 09/05/2024 6:34 AM CAUL PULLER Complete heart block (HCC) Cardiac pacemaker in situ TRANSTHORACIC ECHO (TTE) COMPLETE W DOPPLER/CF WO CONTRAST Routine 08/23/2024 9:54 AM CAUL PULLER Nonrheumatic aortic valve stenosis EGFR Routine 08/03/2024 11:57 AM CAUL PULLER Hypertension associated with diabetes (HCC) HEMOGLOBIN A1C Routine 08/03/2024 11:57 AM CAUL PULLER Class 1 obesity due to excess calories with serious comorbidity and body mass index (BMI) of 32.0 to 32.9 in adult LIPID PANEL Routine 08/03/2024 11:57 AM CAUL PULLER Dyslipidemia associated with type 2 diabetes mellitus [...] DIABETES EYE EXAM Routine 06/09/2023 8:17 AM CAUL PULLER COLONOSCOPY 03/12/2023 7:28 AM CDT HEPATITIS C ANTIBODY Routine 06/06/2019 9:40 AM CAUL PULLER Need for hepatitis C screening test DIABETES FOOT EXAM Routine 06/06/2019 from Last 3 Months or Most Recently Relevant to Health Maintenance Results * (ABNORMAL) Protime-INR (10/26/2024) INR 1.20(A) 1.50 - 2.50 EXTERNAL LAB Blood Historical Provider LAB BLOOD ORDERABLES Kathryn l Result EXTERNAL LAB * (ABNORMAL) Protime-INR (09/16/2024) INR 1.70(A) 1.50 - 2.50 EXTERNAL LAB Blood Result [facility] Historical Provider LAB BLOOD ORDERABLES Kathryn l Result EXTERNAL LAB * Dexa Axial Skeleton Bone Density 1 or 2 Site (09/08/2024) Anatomical Region Laterality Modality Body N/A Radiographic Kallie ging Generic External Data Provider IMG DXA PROCEDURE S Final Result * (ABNORMAL) Protime-INR (09/07/2024) INR 1.30(A) 1.50 - 2.50 EXTERNAL LAB Blood Historical Provider LAB BLOOD ORDERABLES Kathryn lama Result EXTERNAL LAB * DEVICE CHECK - REMOTE (09/05/2024 6:34 AM CAUL PULLER) Anatomical Region Laterality Modality Other Narrative 09/07/2024 8:22 AM CAUL PULLER Images from the original result were not included. 09/05/2024 [facility] quarterly remote device check NOTE The following shows snippets from the complete quarterly report. The complete report in its entirety is attached to this Result Text in Processes Chemical Design Engineer. Presenting EGM Last in-office check 05/04/2022 Next in-office check-not scheduled ( No showed 04/17/2024 appt.) 06/12/2024 Per Denis regarding appt. Patient is hard to contact. She will try to keep contacting her to schedule an appointment. DC PPM, implanted 02/27/2021 with 5.4-6.2 yrs est remaining longevity Ap 64% Web Applications Programmer < 1% No event/alert episodes recorded this monitoring quarter Reviewed By Francia Renteria POWERHOUSE MECHANIC APPRENTICE ATTESTATION I have reviewed the device interrogation report associated with this encounter in detail. I agree with the documentation recorded/scanned into the electronic medical record. Recommendations: Continue current device follow-up. Hesham Beaulieu MD Hesham Beaulieu MD CV CARDIAC SERVICES PROCEDURES Final Result * TRANSTHORACIC ECHO (TTE) COMPLETE W DOPPLER/CF WO CONTRAST (08/23/2024 9:54 AM CAUL PULLER) LV EF % CONS SCIMAGE Anatomical Region Laterality Modality Ultrasound 08/23/2024 9:29 AM CAUL PULLER Narrative 08/23/2024 10:43 AM CAUL PULLER [address] [place] [address] Echocardiogram Report Patient Name: BLANCA RIOS : [...] By: Tanisha Chatterjee MD 08/23/2024 10:42:14 AM CAUL PULLER Procedure Note Tanisha Chatterjee MD - 08/23/[address] [address] Echocardiogram Report Patient Name: BLANCA RIOS : 1960 Study Date: 08/23/2024 9:29:28 AM Gender: F Tech: Location: Echo Lab 2 Ref Provider: ISAAK [...] By: Tanisha Chatterjee MD 08/23/2024 10:42:14 AM CAUL PULLER us Isaak Strong MD CV ECHO PROCEDURES Final Res ult * (ABNORMAL) eGFR (08/03/2024 11:57 AM CAUL PULLER) eGFR 58(L) >=60 mL/min/1. 73 m2 Comment: [...] reviewed 2021. Blood 08/03/2024 11:5 7 AM CAUL PULLER 08/03/2024 9:52 PM CAUL PULLER Hector Hall MD LAB BLOOD ORDERABLES Fi nal Result Performing Organization Address [facility] de Phone Number SKIP [phone] [employer] [place], [place] [id number] * (ABNORMAL) Hemoglobin A1c (08/03/2024 11:57 AM CAUL PULLER) Hgb A1C 8.6(H) 4.0 - 5.6 % Estimated Average Glucose 200 mg/dL SKIP HORN Comment: The ADA recommends reporting an estimated Average Glucose (eAG) with all Hemoglobin A1c results using the equation derived from a study of 507 normal and diabetic adults. Minority populations were underrepresented and children were not included. (Diabetes Care 31:3221-9684, 2008). The eAG is not equivalent to a fasting glucose. Blood 08/03/2024 11:5 7 AM CAUL PULLER 08/03/2024 9:22 PM CAUL PULLER Hector Hall MD LAB BLOOD ORDERABLES Fi nal Result Performing Organization Address [facility] de Phone Number SKIP [phone] [address] [place] [address] * (ABNORMAL) Lipid panel (08/03/2024 11:57 AM CAUL PULLER) Cholesterol 120 30 - 199 mg/dL Comment: [...] on 2018. Triglycerides 191(H) <=149 mg/dL SKIP Comment: Interpretive Data Ages < or = [...] on 2018. HDL 38(L) >=40 mg/dL SKIP Comment: Interpretive Data Ages < or = [...] 2018. LDL, calculated 51 <=129 mg/dL SKIP Comment: Interpretive Data Ages < or = 19 years Acceptable: <110 mg/dL Borderline high: 110-129 mg/dL High: >or= 130 mg/dL Ages > or = 20 years Optimal: <100 mg/dL Near optimal: 100-129 mg/dL Borderline high: 130-159 mg/dL High: >160 mg/dL Calculated using the Sommers LDL-C estimating equation. This equation was implemented on 2024. Prior to this date LDL-C was estimated using the Friedewald equation. Literature References: 1. Expert Panel on Integrated Guidelines for Cardiovascular Health and Risk Reduction in Children and Adolescents. Pediatrics 2011;128:S213 2. NCEP Expert Panel. Circulation 2004;110:227 3. Matthieu M et al. HARSHA Cardiol. 2020 November 09;5(5):540-548. doi: 10.1001/jamacardio.2020.0013 Current Interpretive Data was last revised on 2024. Non-HDL Cholesterol 82 mg/dL SKIP Comment: Interpretive Data Ages < or = [...] last revised on 2018. Chol/HDL ratio 3 [facility] Blood 08/03/2024 11:5 7 AM CAUL PULLER 08/03/2024 9:22 PM CAUL PULLER Narrative [facility] - 08/03/2024 10:35 PM CAUL PULLER Has the patient been fasting for 8 hours or more?->No Hector Hall MD LAB BLOOD ORDERABLES Fi nal Result SKIP [phone] [place] [address] * Pap, reflex HPV (03/28/2024 10:54 AM CDT) Clinical indication Comment [facility] - 01 Comment: NEGATIVE FOR INTRAEPITHELIAL LESION OR MALIGNANCY. CELLULAR CHANGES ASSOCIATED WITH ATROPHY ARE PRESENT. THIS SPECIMEN WAS RESCREENED PART OF OUR SUPERVISOR BRINE PROGRAM. Specimen adequacy: Comment [facility] - 01 Comment: Satisfactory for evaluation. Endocervical component may not be distinguished in cases of atrophy. Clinician provided ICD10 Comment [facility] - 01 Comment:Z01.419 Performed by Comment [facility] - 01 Comment:Kamala Mcarthur, Cyto technologist (ASCP) QC reviewed by Comment [facility] - 01 Comment:Shanika Mercedes, Cyto technologist . . [facility] - 01 [...] - 04/03/2024 12:09 PM CDT Performed at: [address] [place] [id number] Dietary Clerk: Kera Davis MD, Phone: [phone] Specimen Comment: [id number] Specimen Comment: No. of containers..01 ThinPrep Vial us Lauren Rodriguez NP LAB CYTOLOGY ORDERABLES Final Re sult [facility] - 01 * Screening Mammogram Bilateral [...] suspicious finding in either breast on mammogram. Self Screening Mammogram IMG MAMMO PROCEDURES Fi nal Result * Albumin Creatinine Ratio, Urine (09/23/2023 10:46 AM CDT) Albumin Ur <12.0 mg/L Comment: Interpretive Data No reference range established. Current interpretive data was last revised 2018. Creatinine Ur 23.5 mg/dL SKIP HORN Comment: Interpretive Data No reference range established. Current interpretive data was last revised 2018. Albumin Creatinine Ratio, Ur See Comment 1 - 29 SKIP HORN Comment:Unable to calculate Urine 09/23/2023 10:4 6 AM CDT 09/23/2023 9:27 PM CDT Hector Hall MD LAB URINE ORDERABLES Fi nal Result SKIP [id number] [facility] Department [place] [address] * HM DIABETES EYE EXAM (06/09/2023 8:17 AM CAUL PULLER) Historical Provider HEALTH MAINTENANCE Edited Result - Final * COLONOSCOPY (03/12/2023 7:28 AM CDT) Anatomical Region Laterality Modality Other Narrative Procedure Note Lis Jimenez MD - 03/12/2023 7:28 AM CDT [facility] Patient Name: Blanca Rios Procedure Date: 03/12/2023 7:28 AM Date of : 1960 Admit Type: Outpatient Age: 62 Gender: Female Attending MD: Lis Jimenez M.D. Room: [facility] ENDOSCOPY ROOM 1 Note Status: Finalized Patient Profile: This is a 62 year old female. No family history of colon cancer. She had polyps 10 years ago. Hermother had colon polyps. Procedure: Colonoscopy Indications: Colon cancer screening in patient at [facility]: Family history of 1st-degree relative with colon polyps, High risk colon cancer surveillance:Personal history of colonic polyps, Last colonoscopy 10years ago Referring MD: Hector Hall M.D. Providers: Lis Jimenez M.D. Impression: - One 10 mm polyp in the proximal ascending colon, removed with a cold snare. Resected and retrieved. Clips (MR conditional) were placed. Clipmanufacturer: [employer]. - One 14 mm polyp in the proximal rectum, removedwith a hot snare. Resected and retrieved. Clip (MR conditional) was placed. 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 - Internal hemorrhoids. Recommendation: - Await pathology [...] under direct vision. The Pediatric Colonoscope [id number] was introducedthrough the anus and advanced to [...] clips were successfully placed (MR conditional). Clip waxer tender: [employer]. There was no bleeding at the end ofthe procedure. The sigmoid colon, descending colon and transverse colon appearednormal. A 14 mm polyp was found in the proximal rectum. The polyp was pedunculated. The polyp was removed with a hot snare. Resection and retrieval were complete. To prevent bleeding after the polypectomy,one hemostatic clip was successfully placed (MR conditional). 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 There was no bleeding at the end ofthe procedure. Internal hemorrhoids were found during retroflexion. The hemorrhoids were small. Electronically signed by Lis Jimenez M.D. Lis Jimenez M.D. 03/12/2023 9:32:07 AM Number of Addenda: 0 Note Initiated On: 03/12/2023 7:28 AM Procedure Code(s): --- Professional --- 12915, Colonoscopy, flexible; with removal of tumor(s), polyp(s), or other lesion(s) by snare technique Diagnosis Code(s): --- Professional --- Z83.71, Family history of colonic polyps Z86.010, Personal history of colonic polyps K64.8, Other hemorrhoids D12.2, Benign neoplasm of ascending colon D12.8, Benign neoplasm of rectum CPT copyright 2020 [employer]. All rights reserved. The codes documented in this report are preliminary and upon contract coordinator reviewmay be revised to meet current compliance requirements. Recognized by the [employer] for promoting quality in endoscopy Lis Jimenez MD ENDOSCOPY PROCEDURES Final Result * Hepatitis C antibody (06/06/2019 9:40 AM CAUL PULLER) Hep C Ab NON-REACT YENNY NON-REACT YENNY [facility] [place] SIGNAL TO CUT-OFF 0.00 <1.00 [facility] [place] Comment: HCV antibody was non-reactive. There is no laboratory evidence of HCV infection. In most cases, no further action is required. However, if recent HCV exposure is suspected, a test for HCV RNA (test code 08086) is suggested. For additional information please refer to http://education.Ryonet.480 Biomedical/faq/UEP81c3 (This link is being provided for informational/ educational purposes only.) Blood specimen (specimen) 06/06/2019 9:40 AM CAUL PULLER 06/07/2019 5:24 AM CAUL PULLER Narrative Resulting Agency Comment Performing Organization Information: Site ID: [place] Name: [facility] Address: [address] [place], [place] [address] [address] Director: Mateo Chapman D.O., MPH us Deshawn Bueno MD LAB MICROBIOLOGY - GENERAL ORDERABLES Final Result [facility] [place] [facility] * DIABETES FOOT EXAM (06/06/2019) Diabetic Foot Exam Normal us Historical Provider HEALTH MAINTENANCE Final Result from Last 3 Months or Most Recently Relevant to Health Maintenance Insurance [facility] MEDICARE [employer] [facility] Advance Directives For more information, please contact: [phone] * Full Code (Latest Code Status on File) Date Activated Date Inactivated Comments 03/12/2023 7:31 AM 03/12/2023 2:16 PM * Full Code Date Activated Date Inactivated Comments 03/12/2023 7:31 AM 03/12/2023 7:31 AM * Full Code Date Activated Date Inactivated Comments 02/24/2021 1:45 PM 03/04/2021 8:30 PM * Full Code Date Activated Date Inactivated Comments 01/16/2021 1:03 PM 01/16/2021 8:07 PM Care Teams Poultry Inspector Relationship Specialty Start Date End Date Hector Hall MD PCP - General Family Medicine 10/18/20 Hesham Beaulieu MD Consulting Physician Cardiology 10/18/20 Avery Olvera MD Referring Physician Gastroenterology 10/18/20 Chandler Monroy MD [address] [facility] [address] [place] [address] Referring Physician Endocrinology Diabetes & Metabolism 10/18/20 [place] [address] [place] [address] Surgeon Cardiothoracic Surgery 03/04/21 [place] [address] [address] [facility] [address] [place] [address] Consulting Physician Nephrology 09/23/23
--- OUTSIDE RECORDS SUMMARY | 2024-11-16 07:50 | XMS_ITS | Encounter Summary ---
Author Organization [facility] Address [address] [place] [address] Care Team Providers Care Patrol Judge Name Role Phone Deshawn Bueno MD Primary Care Provider [phone] Lourdes Patterson MD Primary Care Provider Encounter Details Date Type Department Care Team (Late st Contact Info) Description 06/26/2020 Telephone [facility] Endocrinology, Diabetes and Metabolism [address] [place] [address] Chandler Berman MD [address] of Endocrinology [place], [place] [id number] Social History Tobacco Use Types Packs/Day Years Used Date Smoking Tobacco: Never Smokeless Tobacco: Never Alcohol Use Standard Drinks/Week Comments No 0 (1 standard drink = 0.6 oz pur e alcohol) Comments No Sex and Gender Information Value Date Recorded Sex Assigned at Not on file 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 Drug type:canagliflozin (INVOKANA) 300 MG tablet Has been out since April 2020 Pharmacy: [id number] [address] [place] [address] [phone] [facility] Patient call back number: [phone] . DISPATCHER documented in this encounter Plan of Treatment Not on file documented as of this encounter Visit Diagnoses Not on filedocumented in this encounter Care Teams Patrol Judge Relationship Specialty Start Date End Date Deshawn Bueno MD [address] [place] [id number] PCP - General Internal Medicine 10/11/18 09/04/20 Lourdes Patterson MD [address] [place] [phone] PCP - General Internal Medicine 09/05/20 documented as of this encounter
--- NOTE | 2024-11-16 07:56 | ED_ITS ---
HPI - URI/Sore Throat General Chief Complaint: Upper Respiratory Infection Stated Complaint: sore throat Source: patient Mode of arrival: ambulatory Limitations: no limitations History of Present Illness HPI Narrative: this is a 64-year-old female presents with sinus congestion and drainage and upper airway congestion with no fever chills no shortness of breath no chest pain no nausea vomiting. MD elicited complaint: cough, nasal congestion and sinus pain Onset (ago): day(s) Consistency: constant Severity: mild Description of mucous: green Related Data Home Medications ?Medication ?Instructions ?Recorded ?Confirmed ?Last Taken ?Type lisinopril 5 mg tablet mg 06/22/24 Unknown History metoprolol tartrate 25 mg tablet mg 06/22/24 Unknown History montelukast 10 mg tablet mg 06/22/24 Unknown History rosuvastatin 40 mg tablet mg 06/22/24 Unknown History warfarin 1 mg tablet mg 06/22/24 Unknown History metoclopramide HCl 5 mg tablet mg 11/16/24 Unknown History Allergies Allergy/AdvReac Type Severity Reaction Status Date / Time levofloxacin (From Levaquin) Allergy Mild Rash Verified 11/16/24 08:02 Sulfa (Sulfonamide Allergy Mild Rash Verified 11/16/24 08:02 Antibiotics) Review of Systems Review of Systems: All systems reviewed & are unremarkable except as noted in HPI and below PMFSH Past Medical History Medical History HTN (hypertension) Diabetes mellitus Exam Const: General: healthy appearing, no acute distress and alert Nutritional Appearance: well nourished Orientation/consciousness: patient oriented x3 Limitations: no limitations HENMT: Head: normal to inspection Other: sinus congestion and bilateral frontal sinus pressure with palpation Neck: Neck: normal visual inspection, no lymphadenopathy and no meningeal signs Chest: Chest palpation & inspection: normal inspection of the chest Resp: Effort & Inspection: normal respiratory effort Auscultation: clear to auscultation bilaterally Cardio: Rate: regular rate Rhythm: regular rhythm GI: GI Palp: Yes Soft to palpation Skin: General skin exam: normal color Rashes: no rashes Course Course Emergency Course: patient with sinus congestion consistent with sinusitis will send antibiotics and advised patient to take Zyrtec [id number]. Vital Signs Vital signs: Vital Signs Temperature 36.5 C 11/16/24 07:46 Pulse Rate 80 11/16/24 07:46 Respiratory Rate 18 11/16/24 07:46 Blood Pressure 149/78 H 11/16/24 07:46 Pulse Oximetry 99 11/16/24 07:46 Oxygen Delivery Room Air 11/16/24 07:46 Temperature 36.5 C 11/16/24 07:46 Pulse Rate 80 11/16/24 07:46 Respiratory Rate 18 11/16/24 07:46 Blood Pressure 149/78 H 11/16/24 07:46 Pulse Oximetry 99 11/16/24 07:46 Oxygen Delivery Room Air 11/16/24 07:46 Critical Care Time Critical Care Time Critical Care Time: No Discharge Plan Discharge Clinical Impression: Sinusitis Qualifiers: Sinusitis location: frontal Chronicity: acute Recurrence: recurrent Qualified Code(s): J01.11 - Acute recurrent frontal sinusitis Patient Disposition: Home Condition: Stable Instructions: Antibiotic Form, Sinusitis (ED) Additional Instructions: Advised patient to take medication as prescribed and follow with primary if symptoms persist or worsen. Patient Language: Ukrainian Prescriptions: New azithromycin [Zithromax Z-Nino] 250 mg tablet See Rx Instructions .ROUTE .COMPLEX Qty: 6 0RF Rx Instructions: For 250 mg dose pack: take 500 mg today (day 1), then 250 mg for 4 days (days 2-5) levalbuterol tartrate [Xopenex HFA] 45 mcg/actuation HFA aerosol inhaler 2 inh inhalation Q6H PRN (Reason: shortness of breath or wheezing) Qty: 15 0RF No Action montelukast 10 mg tablet lisinopril 5 mg tablet warfarin 1 mg tablet metformin 500 mg tablet extended release 24 hr PO insulin lispro 100 unit/mL insulin pen SUBCUT rosuvastatin 40 mg tablet metoprolol tartrate 25 mg tablet Januvia 100 mg tablet Jardiance 25 mg tablet insulin glargine U-300 conc [Toujeo SoloStar U-300 Insulin] 300 unit/mL (1.5 mL) insulin pen SUBCUT azithromycin [Zithromax Z-Nino] 250 mg tablet See Rx Instructions .ROUTE .COMPLEX Qty: 6 0RF Rx Instructions: For 250 mg dose pack: take 500 mg today (day 1), then 250 mg for 4 days (days 2-5) methylprednisolone [Medrol (Nino)] 4 mg tablets,dose pack See Rx Instructions .ROUTE .COMPLEX Qty: 21 0RF Rx Instructions: for 6 days Follow-up/Referrals: Rafael,Hector Anderson MD [Primary Care Provider] - Time of Disposition: 08:01
--- OUTSIDE RECORDS SUMMARY | 2024-11-16 08:07 | XMS_ITS | Encounter Summary ---
Author Organization [facility] Healthcare Address [address] [place] [address] Care Team Providers Care Clinical Geneticist Name Role Phone Hector Hall MD Primary Care Provider Hesham Beaulieu MD Unavailable [phone] Avery Olvera MD Unavailable [phone] Chandler Berman MD Unavailable Isaak Strogn MD Unavailable Hiram Rodriguez MD Unavailable [phone] Reason for Visit * Reason Comments Follow-up Pt is here for a 6 m o check up. Encounter Details Date Type Department Care Team (Late st Contact Info) Description 08/03/2024 11:00 AM TRACK LAYER HEAD Office Visit [facility] Primary Care at [address] [address] Hector Hall MD [address] [place] [address] [address] [place] [address] Primary insomnia (Primary Dx); Hypertension associated with diabetes (HCC); Dyslipidemia associated with type 2 diabetes mellitus (HCC); Class 1 obesity due to excess calories with serious comorbidity and body mass index (BMI) of 32.0 to 32.9 in adult; Postmenopausal; 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); Mild intermittent asthma without complication; Rosacea; Nonrheumatic aortic valve stenosis; Greater trochanteric bursitis of left hip Social History Tobacco Use Types Packs/Day Years Used Date Smoking Tobacco: Never Smokeless Tobacco: Never Alcohol Use Standard Drinks/Week Comments Never 0 [...] declined 02/25/2021 How often do you attend chur or uatsdin services? Patient declined 02/25/2021 Do you belong to any clubs o r organizations such as buddhism groups, unions, fraternal or athletic groups, or [...] points, staff should administer the PHQ-9) 0 11/16/2024 [facility] - Occupational Stress Questionnaire Answer Date [...] place to sleep or slept in a snf (including now)? No 02/25/2021 Personal Safety Answer Date Recorded Have you ever been in or are you currently in a harmful physical or emotional relationship or is someone making you feel afraid or unsafe? Denies 03/12/2023 Comments No Sex and Gender Information Value Date Recorded Sex Assigned at Not on file Legal Sex Female 10:04 AM TRACK LAYER HEAD Gender Identity Not on file Sexual Orientation Not on file documented as of this encounter Last Filed Vital Signs Vital Sign Reading Time Taken Comments Blood Pressure 124/74 08/03/2024 11:15 AM TRACK LAYER HEAD Pulse 78 08/03/2024 11:15 AM TRACK LAYER HEAD Temperature 36.8 C (98.2 F) 08/03/2024 11:15 AM TRACK LAYER HEAD Respiratory Rate - - Oxygen Saturation 98% 08/03/2024 11:15 AM TRACK LAYER HEAD Inhaled Oxygen Concentration - - Weight 76.4 kg (168 lb 8 oz) 08/03/2024 11:15 AM TRACK LAYER HEAD Height 152.4 cm (5') 08/03/2024 11:15 AM TRACK LAYER HEAD Body Mass Index 32.91 08/03/2024 11:15 AM TRACK LAYER HEAD documented in this encounter Patient Instructions * Patient Instructions* Hector Hall MD - 08/03/2024 11:00 AM TRACK LAYER HEAD For scheduling tests such as Bone density testing - Please call [phone] K LAYER HEAD documented in this encounter Ordered Prescriptions Prescription Sig Dispense Quantity Refills Last Filled Start Date End Date metroNIDAZOLE (METROGEL) 0.75 % gelIndications:Acn e Rosacea Apply twice daily to rosacea 45 g 2 08/03/2024 levalbuterol (XOPENEX HFA) 45 mcg/actuation inhalerIndications :Mild intermittent asthma without complication Inhale 1-2 puffs every 6 (six) hours as needed for wheezing or shortness of breath 15 g 1 08/03/2024 documented in this encounter Progress Notes * Hector Hall MD - 08/03/2024 11:00 AM CST Assessment/Plan Diagnoses and all orders for this visit: Primary insomnia (Primary) Assessment & Plan: - chronic, better controlled - states at [...] is effective; continue present plan and medications. Hypertension associated with diabetes (HCC) Assessment & Plan: BP Readings from Last 3 Encounters: 08/03/24 124/74 06/16/24 118/60 03/28/24 130/78 - chronic, well controlled - she has IDDM2, Dyslipidemia - currently on Amlodipine 5mg, Metoprolol lopressor 25mg BID, Lisinopril 5 mg BID - follow low salt diet - The current medical regimen is effective; continue present plan and medications. Orders: - Comprehensive metabolic panel; Future - CBC with auto differential; Future Dyslipidemia associated with type 2 diabetes mellitus (HCC) Assessment & Plan: - chronic, stable - currently on Crestor [...] Results Component Value Date LDLCALC 46 09/13/2023 Orders: - Thyroid Function Real; Future - Lipid panel; Future Class 1 obesity due to excess calories with serious comorbidity and body mass index (BMI) of 32.0 to 32.9 in adult Assessment & Plan: Wt Readings from Last 3 Encounters: 08/03/24 76.4 kg (168 lb 8 oz) 06/16/24 76.8 kg (169 lb 4.8 oz) 03/28/24 77.1 kg (170 lb) Body mass index is 32.91 kg/m??. - chronic, not at goal - goal BMI <30 - BMI Follow-up includes: nutrition counseling, exercise counseling and education - Co-morbidities - hypertension, diabetes, dyslipidemia Orders: - Hemoglobin A1c; Future - Lipid panel; Future Postmenopausal - Dexa Axial Skeleton Bone Density 1 Or 2 Site; Future 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) Assessment & Plan: - chronic condition, stable - established with nephrology - Dr. Zimmerman - need for good glycemic control and blood pressure control, has known hypertension, DM2 - currently on Jardiance and Lisinopril - continue follow up with nephrology - recheck labs, order placed Lab Results Component Value Date CREATININE 1.07 12/30/2023 BUNSER 15 12/30/2023 SODIUM 138 12/30/2023 POTASSIUM 4.0 12/30/2023 CO2 21 (L) 12/30/2023 Mild intermittent asthma without complication Assessment & Plan: - hx of asthma - used to be on advair and xopenex - been off inhaler for 7-8 years - recently had bronchitis which caused an issue - refill Xopenex only for use as needed Orders: - levalbuterol (XOPENEX HFA) 45 mcg/actuation inhaler; Inhale 1-2 puffs every 6 (six) hours as needed for wheezing or shortness of breath Rosacea Assessment & Plan: - chronic condition, worse - used to be on Metrogel but not anymore, new prescription sent Orders: - metroNIDAZOLE (METROGEL) 0.75 % gel; Apply twice daily to rosacea Nonrheumatic aortic valve stenosis Assessment & Plan: - S/p Aortic valve replacement using #19 mm OnX mechanical valve by Dr. Strogn 02/24/2021 - doing well, follow with Cardiology and CT surgery regularly - has an echo set up to be done soon Return in about 6 months (around 01/31/2025) for Preventative/Annual. Subjective/Objective Chief Complaint Patient presents with Follow-up Pt is here for a 6 mo check up. LETICIA Aponte is a 64 y.o. female who is for f/u visit with known conditions of Obesity, Type 2 DM with insulin use, dyslipidemia, hypertension, s/p aortic valve replacement and on coumadin anticoagulation, pacemaker in place, GERD, non-alcoholic serohepatitis, gastroparesis and CKD stage 3 follows with Nephrology. 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 She takes amitriptyline, which she finds helpful, but has discontinued trazodone as it was ineffective. She also mentions that her insurance is changing, which may affect her medication regimen, particularly her insulin for diabetes. The patient's blood pressure is reportedly well-managed with amlodipine, metoprolol, and lisinopril, taken twice daily. She has not had recent blood work done, but agrees to have it done during this visit. Her diabetes control is less successful, with a recent HbA1c of 8.2. The patient acknowledges that diet is a significant factor, particularly her consumption of sweets. She is currently on Jardiance and Januvia for diabetes management. The patient also reports a history of asthma, for which she used to take Advair Diskus and Xopenex.She has not used these medications for several years, but is considering restarting due to a recentbout of bronchitis. She also mentions experiencing allergies currently. Additionally, the patient has rosacea, which seems to be flaring up. She used to use Metrogel for this condition and is considering restarting it. The patient also mentions a recent injection for trochanteric bursitis in her hip, which was beneficial. She is now experiencing similar symptoms in her other hip and is considering another injection. Lastly, the patient mentions a recent issue with her eyes, where she occasionally cannot focus and see two different images. This issue lasts for about a minute and then resolves. - trazodone did not help with her sleep, so will discontinue it - currently on Amitriptyline which I am prescribing - post menopausal, due for bone density - DM2 still not at goal, following with endocrinology, established care with Dr. Garcia on 06/2024 - will be following with CT surgery in August, has an echo set up already as well - the right trochanteric bursitis injection in past helped, has noticed her left is bothering her and is interested in an injection as well Please see the assessment and plan section for relevant conditions discussed, status of conditions,current and future management recommendations. Patient Care Team: Hector Hall MD as PCP - General (Family Medicine) Hesham Beaulieu MD as Consulting Physician (Cardiology) Avery Olvera MD as Referring Physician (Gastroenterology) Chandler Berman MD as Referring Physician (Endocrinology Diabetes & Metabolism) Isaak Strong MD as Surgeon (Cardiothoracic Surgery) Hiram Rodriguez MD as Consulting Physician (Nephrology) Labs: Lab Results Component Value Date CHOL 110 09/13/2023 TRIG 186 (H) 09/13/2023 HDL 27 (L) 09/13/2023 LDL 77 06/06/2019 Lab Results Component Value Date LDLCALC 46 09/13/2023 Lab Results Component Value Date TSH 0.69 09/13/2023 FREET4 1.43 11/02/2022 Lab Results Component Value Date HGBA1C 8.2 06/16/2024 HGBA1C 8.3 02/21/2024 HGBA1C 9.0 10/29/2023 Review of Systems Constitutional: Negative for chills, fatigue, fever and unexpected weight change. Respiratory: Negative for cough, choking, shortness of breath, wheezing and stridor. Cardiovascular: Negative for chest pain, palpitations and leg swelling. Gastrointestinal: Negative for abdominal pain, constipation, diarrhea, nausea and vomiting. Genitourinary: Negative for dysuria and frequency. Musculoskeletal: Positive for arthralgias (left hip). Negative for gait problem. Skin: Positive for rash (face). Negative for wound. Allergic/Immunologic: Positive for environmental allergies. Neurological: Negative for dizziness, facial asymmetry and speech difficulty. Psychiatric/Behavioral: Positive for sleep disturbance. Negative for agitation, behavioral problemsand dysphoric mood. The patient is not nervous/anxious. Vitals: 08/03/24 1115 BP: 124/74 BP Location: Right arm Patient Position: Sitting Pulse: 78 Temp: 36.8 ??C (98.2 ??F) TempSrc: Temporal SpO2: 98% Weight: 76.4 kg (168 lb 8 oz) Height: 152.4 cm (5') Wt Readings from Last 3 Encounters: 08/03/24 76.4 kg (168 lb 8 oz) 06/16/24 76.8 kg (169 lb 4.8 oz) 03/28/24 77.1 kg (170 lb) Body mass index is 32.91 kg/m??. Physical Exam Vitals reviewed. Constitutional: General: She is not in acute distress. Appearance: Normal appearance. She is obese. She is not ill-appearing. Comments: Pleasant HENT: Head: Normocephalic. Right Ear: External ear normal. Left Ear: External ear normal. Eyes: Extraocular Movements: Extraocular movements intact. Cardiovascular: Rate and Rhythm: Normal rate and regular rhythm. Heart sounds: No murmur heard. Pulmonary: Effort: Pulmonary effort is normal. No respiratory distress. Breath sounds: No wheezing. Chest: Abdominal: General: Abdomen is flat. There is no distension. Palpations: Abdomen is soft. There is no mass. Tenderness: There is no abdominal tenderness. There is no guarding or rebound. Hernia: No hernia is present. Comments: Central obesity noted Musculoskeletal: Right lower leg: No edema. Left lower leg: No edema. Skin: General: Skin is warm and dry. Findings: No lesion or rash. Neurological: General: No focal deficit present. Mental Status: She is alert and oriented to person, place, and time. Mental status is at baseline. Motor: No weakness. Gait: Gait normal. Psychiatric: Attention and Perception: Attention normal. Mood and Affect: Mood normal. Speech: Speech normal. Behavior: Behavior normal. Behavior is cooperative. Thought Content: Thought content normal. Judgment: Judgment normal. Hector Hall MD Please note: Voice recognition software [employer] Direct was used dictate and transcribe this document. Construction Teacher variances may occur. Despite proofreading, typographical errors may occur. K LAYER HEAD K LAYER HEAD * Mariel James MA - 08/03/2024 11:00 AM CST Pt booked for 08/08/24 @ 8am K LAYER HEAD documented in this encounter Miscellaneous Notes * Assessment & Plan Note - Hector Hall MD - 08/03/2024 11:51 AM TRACK LAYER HEAD Associated Problem(s): Greater trochanteric bursitis of left hip - the right trochanteric bursitis injection in past helped, has noticed her left is bothering her and is interested in an injection as well K LAYER HEAD * Assessment & Plan Note - Hector Hall MD - 08/03/2024 11:47 AM TRACK LAYER HEAD Associated Problem(s): Nonrheumatic aortic valve stenosis - S/p Aortic valve replacement using #19 mm OnX mechanical valve by Dr. Strong 02/24/2021 - doing well, follow with Cardiology and CT surgery regularly - has an echo set up to be done soon K LAYER HEAD K LAYER HEAD * Assessment & Plan Note - Hector Hall MD - 08/03/2024 11:42 AM TRACK LAYER HEAD Associated Problem(s): Rosacea - chronic condition, worse - used to be on Metrogel but not anymore, new prescription sent K LAYER HEAD * Assessment & Plan Note - Hector Hall MD - 08/03/2024 11:41 AM TRACK LAYER HEAD Associated Problem(s): Mild intermittent asthma without complication - hx of asthma - used to be on advair and xopenex - been off inhaler for 7-8 years - recently had bronchitis which caused an issue - refill Xopenex only for use as needed K LAYER HEAD * Assessment & Plan Note - Hector Hall MD - 08/03/2024 11:39 AM TRACK LAYER HEAD Associated Problem(s): 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 Zimmerman - need for good glycemic control and blood pressure control, has known hypertension, DM2 - currently on Jardiance and Lisinopril - continue follow up with nephrology - recheck labs, order placed Lab Results Component Value Date CREATININE 1.07 12/30/2023 BUNSER 15 12/30/2023 SODIUM 138 12/30/2023 POTASSIUM 4.0 12/30/2023 CO2 21 (L) 12/30/2023 K LAYER HEAD K LAYER HEAD * Assessment & Plan Note - Hector Hall MD - 08/03/2024 11:37 AM TRACK LAYER HEAD Associated Problem(s): Class 1 obesity due to excess calories with serious comorbidity and body mass index (BMI) of 32.0 to 32.9 in adult Wt Readings from Last 3 Encounters: 08/03/24 76.4 kg (168 lb 8 oz) 06/16/24 76.8 kg (169 lb 4.8 oz) 03/28/24 77.1 kg (170 lb) Body mass index is 32.91 kg/m??. - chronic, not at goal - goal BMI <30 - BMI Follow-up includes: nutrition counseling, exercise counseling and education - Co-morbidities - hypertension, diabetes, dyslipidemia K LAYER HEAD * Assessment & Plan Note - Hector Hall MD - 08/03/2024 11:36 AM TRACK LAYER HEAD Associated Problem(s): Dyslipidemia associated with type 2 diabetes mellitus (HCC) - chronic, stable - currently on Crestor [...] Results Component Value Date LDLCALC 46 09/13/2023 K LAYER HEAD * Assessment & Plan Note - Hector Hall MD - 08/03/2024 11:36 AM TRACK LAYER HEAD Associated Problem(s): Hypertension associated with diabetes (HCC) BP Readings from Last 3 Encounters: 08/03/24 124/74 06/16/24 118/60 03/28/24 130/78 - chronic, well controlled - she has IDDM2, Dyslipidemia - currently on Amlodipine 5mg, Metoprolol lopressor 25mg BID, Lisinopril 5 mg BID - follow low salt diet - The current medical regimen is effective; continue present plan and medications. K LAYER HEAD * Assessment & Plan Note - Hector Hall MD - 08/03/2024 11:35 AM TRACK LAYER HEAD Associated Problem(s): Primary insomnia - chronic, better controlled - states at [...] is effective; continue present plan and medications. K LAYER HEAD documented in this encounter Plan of Treatment Not on file documented as of this encounter Results * (ABNORMAL) CBC with auto differential (08/03/2024 11:57 AM TRACK LAYER HEAD) WBC 10.9(H) 3.8 - 9.9 K/cumm Hgb 13.9 11.9 - 15.5 g/dL [facility] Hct 44.4 35.6 - 45.5 % [facility] Plt 298 150 - 400 K/cumm [facility] MPV 10.5 9.1 - 12.3 fL [facility] RBC 5.01 3.90 - 5.20 M/cumm [facility] MCV 88.6 81.3 - 96.4 fL [facility] MCH 27.7 27.1 - 33.3 pg [facility] MCHC 31.3(L) 32.3 - 35.7 g/dL [facility] RDW CV 13.5 11.1 - 14.9 % [facility] RDW SD 43.8 35.7 - 48.1 fL [facility] NRBC abs 0.00 0.00 - 0.01 K/cumm [facility] Blood 08/03/2024 11:5 7 AM TRACK LAYER HEAD 08/03/2024 9:22 PM TRACK LAYER HEAD us Hector Hall MD LAB BLOOD [place] [address] [address] Department [place] [address] * (ABNORMAL) Comprehensive metabolic panel (08/03/2024 11:57 AM TRACK LAYER HEAD) Sodium 140 135 - 145 mmol/L Potassium, pl 4.2 3.3 - 4.9 mmol/L [facility] Chloride 104 97 - 110 mmol/L [facility] CO2 24 22 - 32 mmol/L [facility] Anion gap 12 2 - 15 mmol/L [facility] BUN 15 6 - 25 mg/dL [facility] Creatinine 1.06 0.60 - 1.10 mg/dL [facility] Glucose 128 70 - 199 mg/dL [facility] Comment: Interpretive Data Fasting glucose >/= 126 mg/dl is diagnostic for diabetes. Fasting is defined as no caloric intake for at least 8 hours. Fasting glucose between 100 mg/dl to 125 mg/dl is diagnostic of prediabetes. In a patient with classic symptoms of hyperglycemia or hyperglycemic crisis, a random glucose >/= 200 mg/dl is diagnostic for diabetes. In the absence of unequivocal hyperglycemia, results should be confirmed by repeat testing. The classification and Diagnosis of Diabetes Diabetes Care 202; 46: S19-S40. Current interpretive data was last revised 2022. Calcium 10.4(H) 8.5 - 10.3 mg/dL [facility] Bilirubin, total 0.4 0.1 - 1.2 mg/dL [facility] Protein, pl 7.1 6.5 - 8.5 g/dL [facility] Albumin 4.5 3.5 - 5.0 g/dL [facility] Alk phos 60 40 - 130 Units/L [facility] ALT 26 7 - 45 Units/L [facility] AST 31 10 - 45 Units/L [facility] Blood 08/03/2024 11:5 7 AM TRACK LAYER HEAD 08/03/2024 9:22 PM TRACK LAYER HEAD Hector Hall MD LAB BLOOD ORDERABLES Fi nal Result [facility] [address] [address] Department [place] [address] * (ABNORMAL) Lipid panel (08/03/2024 11:57 AM TRACK LAYER HEAD) Cholesterol 120 30 - 199 mg/dL Comment: [...] revised on 2018. Triglycerides 191(H) <=149 mg/dL [facility] Comment: Interpretive Data Ages < or = [...] NCEP Expert Panel. Circulation 2004;110:227 3. Matthieu King et al. HARSHA Cardiol. 2020 November 09;5(5):540-548. [...] last revised on 2018. Chol/HDL ratio 3 SKIP Blood 08/03/2024 11:5 7 AM TRACK LAYER HEAD 08/03/2024 9:22 PM TRACK LAYER HEAD Narrative SKIP - 08/03/2024 10:35 PM TRACK LAYER HEAD Has the patient been fasting for 8 hours or more?->No Hector Hall MD LAB BLOOD ORDERABLES Fi nal Result Performing Organization Address [facility] de Phone Number [place] [address] [address] [employer] [place] [address] * (ABNORMAL) Hemoglobin A1c (08/03/2024 11:57 AM TRACK LAYER HEAD) Hgb A1C 8.6(H) 4.0 - 5.6 % Estimated Average Glucose 200 mg/dL [place] [place] Comment: The ADA recommends reporting an estimated Average Glucose (eAG) with all Hemoglobin A1c results using the equation derived from a study of 507 normal and diabetic adults. Minority populations were underrepresented and children were not included. (Diabetes Care 31:0374-6650, 2008). The eAG is not equivalent to a fasting glucose. Blood 08/03/2024 11:5 7 AM TRACK LAYER HEAD 08/03/2024 9:22 PM TRACK LAYER HEAD Hector Hall MD LAB BLOOD ORDERABLES Fi nal Result Performing Organization Address [facility] de Phone Number [place] [address] [address] [employer] [place] [address] * Thyroid Function Real (08/03/2024 11:57 AM TRACK LAYER HEAD) TSH 0.77 0.30 - 4.20 mcIUnit/mL Blood 08/03/2024 11:5 7 AM TRACK LAYER HEAD 08/03/2024 9:22 PM TRACK LAYER HEAD Hector Hall MD LAB BLOOD ORDERABLES Fi nal Result Performing Organization Address [facility] de Phone Number [place] [place] [address] [address] [facility] [employer] [address] documented in this encounter Visit Diagnoses Diagnosis Primary insomnia- Primary Persistent disorder of initiating or maintaining sleep Hypertension associated with diabetes (HCC) Unspecified essential hypertension Dyslipidemia associated with type 2 diabetes mellitus (HCC) Class 1 obesity due to excess calories with serious comorbidity and body mass index (BMI) of 32.0 to 32.9 in adult Postmenopausal Asymptomatic postmenopausal status (age-related) (natural) 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) Mild intermittent asthma without complication Rosacea Nonrheumatic aortic valve stenosis Greater trochanteric bursitis of left hip Hypertension associated with diabetes (HCC) Unspecified essential hypertension Dyslipidemia associated with type 2 diabetes mellitus (HCC) Class 1 obesity due to excess calories with serious comorbidity and body mass index (BMI) of 32.0 to 32.9 in adult documented in this encounter Discontinued Medications Medication Sig Discontinue Reason Start Date End Da te rosuvastatin (CRESTOR) 20 mg tablet Take 1 tablet (20 mg total) by mouth daily Alternate therapy 05/26/2021 08/03/2024 traZODone (DESYREL) 50 mg tabletIndications:Primar y insomnia Take 1-2 tablets (50-100 mg total) by mouth nightly as needed for sleep Therapy completed 09/23/2023 08/03/2024 furosemide (LASIX) 40 mg tablet Therapy completed 08/03/2024 documented as of this encounter Care Teams Clinical Geneticist Relationship Specialty Start Date End Date Hector Hall MD PCP - General Family Medicine 10/18/20 Hesham Beaulieu MD Consulting Physician Cardiology 10/18/20 Avery Olvera MD Referring Physician Gastroenterology 10/18/20 Chandler Berman MD [address] [place] [address] Referring Physician Endocrinology Diabetes & Metabolism 10/18/20 [place] [address] [address] [place] [address] Surgeon Cardiothoracic Surgery 03/04/21 [place] [address] [address] Consulting Physician Nephrology 09/23/23 documented as of this encounter
== END 2024-11-16 08:10 | disposition home or self-care (01) ==
LOC: CHSED 08:03
PROVIDERS: Emergency Provider Emergency Medicine; PCP Family Medicine
DX: J01.11 Acute recurrent frontal sinusitis (principal); E11.9 Type 2 diabetes mellitus without complications; I10 Essential (primary) hypertension; Z79.899 Other long term (current) drug therapy
CPT/HCPCS: 99283

== ENCOUNTER 2024-11-21 07:32 | Outpatient (RCR) | payer OTHER, SELFPAY ==
[2024-09-16 08:48] LABS: INR 1.7; Prothrombin Time 17.7 Seconds (9.50-12.1)
[2024-10-19 07:57] LABS: INR 1.2; Prothrombin Time 13.2 Seconds (9.50-12.1)
[2024-11-10 12:15] LABS: INR 1.4; Prothrombin Time 15.3 Seconds (9.50-12.1)
[2024-11-21 08:25] LABS: INR 1.8; Prothrombin Time 18.4 Seconds (9.50-12.1)
== END 2024-12-15 23:59 | disposition home or self-care (01) ==
LOC: CHSLAB 07:32
PROVIDERS: PCP Family Medicine; Visit Provider Internal Medicine Cardiovascular Disease
DX: Z95.2 Presence of prosthetic heart valve (principal); Q23.81 Bicuspid aortic valve
CPT/HCPCS: 36415; 85610

== ENCOUNTER 2025-03-19 10:35 | Outpatient (RCR) | payer OTHER, SELFPAY ==
[2024-12-23 07:50] LABS: INR 1.4; Prothrombin Time 14.9 Seconds (9.50-12.1)
[2025-01-17 07:58] LABS: INR 2.1; Prothrombin Time 21.4 Seconds (9.50-12.1)
[2025-01-30 08:41] LABS: INR 1.5; Prothrombin Time 16.1 Seconds (9.50-12.1)
[2025-03-19 10:58] LABS: INR 1.1; Prothrombin Time 12.5 Seconds (9.50-12.1)
== END 2025-03-23 23:59 | disposition home or self-care (01) ==
LOC: CHSLAB 10:35
PROVIDERS: PCP Family Medicine; Visit Provider Internal Medicine Cardiovascular Disease
DX: Z95.2 Presence of prosthetic heart valve (principal); Q23.81 Bicuspid aortic valve
CPT/HCPCS: 36415; 85610

== ENCOUNTER 2025-06-14 07:38 | Outpatient (RCR) | payer OTHER, SELFPAY ==
[2025-04-02 08:04] LABS: INR 1.5; Prothrombin Time 15.8 Seconds (9.50-12.1)
[2025-05-02 08:06] LABS: INR 1.4; Prothrombin Time 14.6 Seconds (9.50-12.1)
[2025-05-14 07:52] LABS: INR 1.5; Prothrombin Time 15.9 Seconds (9.50-12.1)
[2025-05-19 07:46] LABS: INR 1.6; Prothrombin Time 16.7 Seconds (9.50-12.1)
[2025-06-05 09:22] LABS: INR 4.4; Prothrombin Time 42.3 Seconds (9.50-12.1)
[2025-06-14 08:03] LABS: INR 1.8; Prothrombin Time 19.2 Seconds (9.50-12.1)
== END 2025-07-01 23:59 | disposition home or self-care (01) ==
LOC: CHSLAB 07:38
PROVIDERS: PCP Family Medicine; Visit Provider Internal Medicine Cardiovascular Disease
DX: Z95.2 Presence of prosthetic heart valve (principal); Q23.81 Bicuspid aortic valve
CPT/HCPCS: 36415; 85610